=== PATIENT | female | born 1935 | race Caucasian/White ===

== ENCOUNTER 2020-03-11 12:52 | Outpatient (CLI) | payer OTHER, SELFPAY ==
--- NOTE | ~2020-03-11 | XR_ITS ---
MODIFIED ESOPHAGRAM HISTORY: Dysphagia. TECHNIQUE: Modified barium esophagram was performed on 03/11/2020. I administered fluoroscopy and perf ormed the exam with speech pathologist. Patient was seated for lateral fluoroscopic imaging for omayra stion of thin liquids, pudding, solids and quantified amounts, followed by thin liquids in uncontroll ed amounts. This was recorded on tape. A single fluoroscopic spot image was also recorded. The DAP fo r this procedure was 2.5 Gycm2. The amount of fluoroscopy time used during this procedure was 3.7 min utes. FINDINGS: Oral stage: Adequate function. Pharyngeal stage: Trace laryngeal penetration and aspiration with positive cough reflex. Prominent up per cricopharyngeus at the upper esophageal sphincter with a reflux into the piriform sinus with thin ner consistencies.. Cervical/esophageal stage: Adequate function. IMPRESSION: Trace laryngeal penetration and aspiration which elicited a cough reflex. Please correla te with speech pathologist findings and specific feeding recommendations. Reviewed, dictated and finalized at location A. IMPRESSION: Trace laryngeal penetration and aspiration which elicited a cough r eflex. Please correlate with speech pathologist findings and specific feeding recommendations.
--- NOTE | ~2020-03-11 | CT_ITS ---
EXAMINATION: CT chest wo con DATE: 03/11/2020 14:25 INDICATION: Cough, abnormal finding of the lung field TECHNIQUE: Computed tomography (CT) of the chest was performed without intravenous contrast. The dose -length product (DLP) was 149.90 mGy-cm. 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 COMPARISON: 08/23/2019, 09/03/2011 FINDINGS: There are multiple stable bilateral pulmonary nodules, consistent with old granulomatous di sease. No new or suspicious pulmonary nodule is identified. There is atelectasis of the lower lobes. There is no pleural effusion or pneumothorax. Cardiomegaly is noted. Mild mediastinal lymphadenopathy is unchanged and likely reactive. There appear to be changes of prior left hemithyroidectomy. Calcif ied coronary artery atherosclerosis is noted. A small amount of enteric contrast material is seen in the esophagus and stomach from modified barium swallow. There is severe thoracic spondylosis. There i s an unchanged compression fracture of the T6 vertebral body. IMPRESSION: 1. Stable scattered bilateral pulmonary nodules, consistent with old granulomatous disease. Reviewed, dictated and finalized at location A. IMPRESSION: 1. Stable scattered bilateral pulmonary nodules, consistent with old granulomat ous disease.
--- NOTE | 2020-03-12 08:40 | STOPEVAL ---
Outpatient Modified Barium Swallow: Thank you for referring Valentina Machado to [facility]. Attending Provider: Tashi Franco MD *[place] [facility] [place]: 03/12/20 08:22 Freq: Status: Active Protocol: Document 03/11/20 13:30 BECHERERT (Rec: 03/12/20 08:40 BECHERERT [email or web address]) Therapy Assessment Status Assessment Status Assessment Status Evaluation Evaluation Information Problem Diagnosis dysphagia;cough and aspiration of food Onset month or so Subjective Information poor memory Query Text:As Reported By Patient/ Family Pain Assessment Timing of Pain Assessment Timing of Pain Assessment Assessment Self Report Self Report Pain Level 0 Pain Score Pain Score 0: Self Report Modified Barium Swallow Evaluation Recent Swallowing History Reports Dysphagia Yes: tickle in throat; cough Onset of Dysphagia month or so History of Dysphagia No History of Pneumonia No Reported Difficult Consistencies Unable to Identify Intake Method Prior to Swallow Oral Evaluation Diet Prior to Swallow Evaluation Regular, Level 7 Liquid Consistency Prior to Swallow Thin (0) Evaluation Consistency Mildly Thick Method of Presentation Cup Oral Preparatory Symptoms Within Functional Limits Oral Phase Symptoms Within Functional Limits Pharyngeal Phase Symptoms Within Functional Limits Severity of Vallecular Residue Trace - 1-5 % Trace Coating of the Mucosa Severity of Pyriform Sinus Residue Trace - 1-5 % Trace Coating of the Mucosa 8 Point Laryngeal Penetration-Aspiration Material Does Not Enter Airway Scale Thin Uncontrolled 2 Other Amount with chin tuck Method of Presentation Straw Oral Preparatory Symptoms Within Functional Limits Oral Phase Symptoms Within Functional Limits Pharyngeal Phase Symptoms Within Functional Limits Severity of Vallecular Residue Trace - 1-5 % Trace Coating of the Mucosa Severity of Pyriform Sinus Residue Trace - 1-5 % Trace Coating of the Mucosa 8 Point Laryngeal Penetration-Aspiration Material Does Not Enter Airway Scale Pharyngeal Phase Comments Tight UES with trace backflow to pyriform sinus; no entry into laryngeal vestibule Thin Uncontrolled 1 Other Amount instructed to take 1 gulp Method of Presentation Cup Oral Preparatory Symptoms Within Functional Limits Oral Phase Symptoms Within Functional Limi
== END 2020-03-11 12:53 | disposition home or self-care (01) ==
PROVIDERS: PCP Family Medicine; Visit Provider Family Medicine
DX: R05 Cough (principal); T17.920A Food in respiratory tract, part unspecified causing asphyxiation, initial encounter; R91.8 Other nonspecific abnormal finding of lung field
CPT/HCPCS: 71250; 92611

== ENCOUNTER 2021-03-09 11:36 | Emergency (ER) | payer OTHER, SELFPAY ==
--- NOTE | ~2021-03-09 | CT_ITS ---
EXAMINATION: CT cervical spine wo con DATE: 03/09/2021 13:00 INDICATION: Head injury, neck pain TECHNIQUE: Computed tomography (CT) of the cervical spine was performed without intravenous contrast. The dose-length product (DLP) was 605.33 mGy-cm. Automated exposure control and iterative reconstruc tion technique were employed. COMPARISON: None FINDINGS: There is no fracture, dislocation, or subluxation. The vertebral body heights are maintaine d. There is moderate loss of intervertebral disc space height at C5-6. The odontoid is intact. The pr evertebral soft tissues are normal. There is mild multilevel facet and uncovertebral joint osteoarthr itis. Chronic right sphenoid sinusitis as noted. The left thyroid lobe is surgically absent. There ar e calcified and noncalcified nodule of the right thyroid lobe. IMPRESSION: 1. Mild cervical spondylosis without acute findings. Reviewed, dictated and finalized at location A.
--- NOTE | ~2021-03-09 | CT_ITS ---
EXAMINATION: CT brain wo con INDICATION: Head injury COMPARISON: None TECHNIQUE: Standard unenhanced head CT. The dose-length product (DLP) was 605.33 mGy-cm. The mA was a djusted according to patient size. Iterative reconstruction technique was employed. FINDINGS: There is a small right frontal scalp hematoma. There is no acute intraparenchymal hemorrhag e. No evidence of mass lesion. No evidence of acute infarction. There is mild periventricular and sub cortical hypodensity probably related to small vessel ischemic disease. There is mild prominence of t he sulci and ventricles related to cerebral atrophy. Intracranial calcified cerebral atherosclerosis is noted. There are no extra-axial collections. There is no mass effect or midline shift. A prostheti c left globe is noted. There is chronic complete opacification of right sphenoid sinus with sclerosis of the sinus doherty, consistent with chronic sinusitis. IMPRESSION: 1. Small right frontal scalp hematoma without acute intracranial abnormality. 2. Age related findings. Reviewed, dictated and finalized at location A.
--- NOTE | ~2021-03-09 | XR_ITS ---
EXAMINATION: XR knee RT 3V DATE: 03/09/2021 13:10 INDICATION: Right knee pain post fall TECHNIQUE: Anteroposterior, oblique and crosstable lateral views of the right knee were obtained COMPARISON: None. FINDINGS: Alignment is normal. No fracture. At least mild osteoarthritis in the ureter compartment of the righ t knee with small marginal osteophytes along the medial tibial plateau. Small right knee joint effusi on without layering lipohemarthrosis. Subtle vascular calcification along the femoral and proximal po pliteal arteries. Soft tissues are otherwise unremarkable. IMPRESSION: 1. Small right knee joint effusion. No acute osseous abnormality. Reviewed, dictated and finalized at location A.
--- NOTE | ~2021-03-09 | XR_ITS ---
EXAMINATION: XR elbow RT min 3V DATE: 03/09/2021 13:10 INDICATION: Right elbow pain post fall TECHNIQUE: Anteroposterior, two oblique and lateral views of the right elbow were obtained. COMPARISON: None. FINDINGS: Alignment is normal. No fracture or joint effusion. Mild osteoarthritis at the right elbow with nonun iform joint space narrowing at the radiocapitellar articulation.. Soft tissues are unremarkable. IMPRESSION: 1. Mild osteoarthritis at the right elbow. No joint effusion or acute osseous abnormality. Reviewed, dictated and finalized at location A. IMPRESSION: 1. Mild osteoarthritis at the right elbow. No joint effusion or acute osseous a bnormality.
[2021-03-09 11:37] VITALS: BP 127/77; PULSE 88; RESP 18; TEMP 37; O2SAT 100
[2021-03-09 12:31] VITALS: BP 133/77; PULSE 84; RESP 14; O2SAT 97
--- NOTE | 2021-03-09 12:45 | ECG_ITS ---
Measurements Intervals [place] Rate: 84 P: CT: 0 QRS: -27 QRSD: 91 T: -5 QT: 407 QTc: 484 Interpretive Statements ATRIAL FIBRILLATION BASELINE ARTIFACT- I, II, III, AVR, AVF, V1-V6 ABNORMAL ECG Electronically Signed On 03-09-2021 15:29:44 CDT by Eduardo Oviedo D.O.
--- NOTE | 2021-03-09 12:54 | ED.GENADULT ---
HPI - General Adult General Chief complaint: Fall Stated complaint: Fall Time Seen by Provider: 03/09/21 12:18 Source: patient History of Present Illness HPI narrative: Patient is a 85 y/o female complaining of fall down after she walked outside. She did hit her head and she has a slight headache. She denies any headache. She describes her headache as uncomfortable but it's very mild. There is no alleviating or exacerbating factor. She has no neck pain, back pain, chest pain or abdominal pain. She also has some scratches to right elbow and right knee. Of note, she is on Eliquis for A fib. Related Data Home Medications Medication Instructions Recorded Confirmed aspirin 81 mg tablet,delayed 81 mg PO DAILY 08/20/19 09/02/20 release latanoprost 0.005 % eye drops 1 drop EACH EYE QPM 08/20/19 09/02/20 memantine 10 mg tablet 10 mg PO BID 08/20/19 09/02/20 multivitamin 1 tablet PO DAILY 08/20/19 09/02/20 polyethylene glycol 3350 17 gram 17 gm PO DAILY 08/20/19 09/02/20 oral powder packet timolol maleate 0.25 % eye drops 1 drop EACH EYE Q12H 08/20/19 09/02/20 Allergies Allergy/AdvReac Type Severity Reaction Status Date / Time No Known Allergies Allergy Verified 09/02/20 15:34 Review of Systems Constitutional: Constitutional: Denies chills, Denies fever(s), Reports headache(s) and Denies weakness Eyes: Eyes: Denies blurry vision ENT: Reports headache(s) and Denies neck pain Cardiovascular: Cardiovascular: Denies chest pain and Denies dyspnea Respiratory: Respiratory: Denies cough and Denies dyspnea Gastrointestinal: Gastrointestinal: Denies abdominal pain, Denies diarrhea, Denies nausea and Denies vomiting Genitourinary: Genitourinary: Denies hematuria and Denies dysuria Musculoskeletal: Musculoskeletal: Denies back pain and Denies neck pain Neurologic: Reports headache(s) and Denies weakness [facility] Family History Family History Father Family history of malignant neoplasm Mother Family history of coronary artery disease Social History Social History Smoking status: Never smoker Second hand tobacco smoke exposure: No Alcohol intake: never Substance use: never Substance use type: does not use Gender identity (if verbalized by the patient): Female Exam Const: General: no acute distress and well developed Orientation/consciousness: oriented to person and oriented to place HENMT: Head: normocephalic and contusion left frontal Ears: external ears normal General nose exam: Normal external nose present Eyes: General: appearance normal, both eyes and all related structures Conjunctivae: conjunctivae normal Neck: Neck: normal visual inspection and full ROM Chest: Chest palpation & inspection: normal inspection of the chest and no tenderness Resp: Effort & Inspection: normal respiratory effort Auscultation: clear to auscultation bilaterally Cardio: Rate: regular rate Rhythm: abnormal rhythm irregularly irregular GI: GI Palp: No abdominal tenderness and Yes Soft to palpation Skin: General skin exam: normal color and turgor normal Neuro: General: oriented to person and oriented to place Cognition (Neuro): normal cognition Extrem: General: normal to inspection and full ROM Right upper extremity: elbow/forearm abrasion Right lower extremity: knee Details: tenderness, swelling and abrasion Psych: Appearance: grossly normal Mental Status: mental status grossly normal Affect: normal affect Course Vital Signs Vital signs: Vital Signs Temperature 37.0 C 03/09/21 11:37 Pulse Rate 88 03/09/21 11:37 Respiratory Rate 18 03/09/21 11:37 Blood Pressure 127/77 03/09/21 11:37 Pulse Oximetry 100 03/09/21 11:37 Temperature 37.0 C 03/09/21 11:37 Pulse Rate 88 03/09/21 11:37 Respiratory Rate 18 03/09/21 11:37 Blood Pressure 127/77 03/09/21 11:37 Pulse Oximet
[2021-03-09 13:16] VITALS: BP 144/84; PULSE 95; RESP 17; O2SAT 99
[2021-03-09 13:35] LABS: Basophils Percent Auto 0.4 % (0.2-1.2); Eosinophils Percent Auto 0.4 % (0-4.4); Hematocrit 47.8 % (37.0-47.0); Hemoglobin 15.3 g/dL (12.0-15.0); Immature Granulocyte Absolute 0.04 K/mm3 (0.00-0.031); Immature Granulocyte Percent A 0.5 % (0-0.5); Lymphocytes Absolute Auto 1.11 K/mm3 (0.9-3.2); Mean Corpuscular Hemoglobin 27.8 pg (26-34); Mean Corpuscular Volume 86.9 fl (80-100); Mean Platelet Volume 10.4 fl (7.4-10.4); Monocytes Absolute Auto 0.4 K/mm3 (0.1-0.6); Monocytes Percent Auto 5.8 % (2.6-8.5); Neutrophils Absolute Auto 5.8 K/mm3 (1.3-6.7); Neutrophils Percent Auto 77.9 % (45.5-73.1); Platelet Count Result 187 k/mm3 (150-375); White Blood Count 7.4 K/mm3 (4.5-10.0)
[2021-03-09 13:46] LABS: INR 1.2; Partial Thromboplastin Time 26.9 SECONDS (22.3-36.8); Prothrombin Time 16.2 Seconds (11.1-14.7)
[2021-03-09 13:47] LABS: Anion Gap 12 mmol/L (8-16); Blood Urea Nitrogen 22 mg/dL (7-17); Calcium 9.6 mg/dL (8.4-10.2); Carbon Dioxide 24 mmol/L (22-30); Chloride 104 mmol/L (98-107); Estimated CRCL calculation 47 ml/min; Estimated Glomerular Filt Rate > 60; Glucose 85 mg/dL (65-105); Potassium 4.3 mmol/L (3.4-5.0); Sodium 140 mmol/L (137-145)
[2021-03-09] MEDS: TETANUS,DIPHTHERIA,AC PERTUSSIS ADULT (0.5 ML) BOOSTRIX IM (15:41)
[2021-03-09 15:56] VITALS: BP 143/96; PULSE 86; RESP 16; O2SAT 97
== END 2021-03-09 16:03 | disposition home or self-care (01) ==
PROVIDERS: Emergency Provider Emergency Medicine; PCP Family Medicine
DX: S00.83XA Contusion of other part of head, initial encounter (principal); S80.211A Abrasion, right knee, initial encounter; M25.461 Effusion, right knee; Z23 Encounter for immunization; I48.91 Unspecified atrial fibrillation; Z79.82 Long term (current) use of aspirin; Z79.01 Long term (current) use of anticoagulants; W19.XXXA Unspecified fall, initial encounter
CPT/HCPCS: 36415; 70450; 72125; 73080; 73562; 80048; 85025; 85610; 85730; 90471; 90715; 93005; 99284

== ENCOUNTER 2021-04-17 08:31 | Outpatient (CLI) | payer OTHER, SELFPAY ==
--- NOTE | ~2021-04-17 | XR_ITS ---
XR chest 2V 04/17/2021 09:09 Indication: Shortness of breath Procedure: 2 view chest Comparison: 08/16/2019 Findings: Heart size is normal. No acute focal pneumonia, edema or effusion. No pneumothorax. Healed right rib fractures. Impression: 1: No acute cardiopulmonary disease. Reviewed, dictated and finalized at location A. Impression: 1: No acute cardiopulmonary disease.
--- NOTE | ~2021-04-17 | CT_ITS ---
EXAMINATION: CT brain wo con DATE: 04/17/2021 09:15 INDICATION: Dementia with behavioral disturbance and memory loss TECHNIQUE: Computed tomography (CT) of the head was performed without intravenous contrast. Sagittal and coronal reconstructions were performed. The mA was adjusted according to patient size. Iterative reconstruction technique was employed. The dose-length product was 605.33 mGy-cm. COMPARISON: head CT dated 03/09/2021 FINDINGS: No acute intracranial hemorrhage, acute infarction or abnormal extra axial fluid collection. There is mild scattered white matter hypoattenuation consistent with chronic small vessel ischemic disease. S ymmetric prominence of the sulci and ventricles consistent with moderate age-appropriate diffuse cere bral volume loss. No mass/mass effect. Changes of bilateral intraocular lens replacement. Attenuation likely central canal within the left globe. Chronic opacification of the right sphenoid sinus with c entral calcification and thickened sclerotic doherty, likely sequela of chronic fungal sinusitis. Remai nder of the paranasal sinuses as well as the middle ear cavities and mastoid air cells are clear. IMPRESSION: 1. No acute intracranial process. 2. Age-related changes including moderate diffuse volume loss and mild scattered white matter hypoatt enuation consistent with chronic small vessel ischemic disease. 3. Chronic right sphenoid sinusitis. Reviewed, dictated and finalized at location A. IMPRESSION: 1. No acute intracranial process. 2. Age-related changes including moderate diffuse volume loss and mild scattere d white matter hypoattenuation consistent with chronic small vessel ischemic di sease. 3. Chronic right sphenoid sinusitis.
--- NOTE | ~2021-04-17 | XR_ITS ---
XR_[id number]_CR 04/17/2021 09:08 Indication: Cervicalgia. Neck pain. Procedure: 3 view cervical spine Comparison: No prior studies for comparison. Findings: Accentuated cervical lordosis. Vertebral body heights are maintained. Mild disc narrowing a t C5-6. No prevertebral soft tissue abnormality. Moderate multilevel facet hypertrophy. Odontoid proc ess is unremarkable. Impression: 1: Mild cervical spondylosis. Reviewed, dictated and finalized at location A. Impression: 1: Mild cervical spondylosis.
== END 2021-04-17 08:32 | disposition home or self-care (01) ==
PROVIDERS: PCP Family Medicine; Visit Provider Physician Assistant
DX: F03.90 Unspecified dementia, unspecified severity, without behavioral disturbance, psychotic disturbance, mood disturbance, and anxiety (principal); I10 Essential (primary) hypertension; I48.91 Unspecified atrial fibrillation; M54.2 Cervicalgia; R91.8 Other nonspecific abnormal finding of lung field; M47.892 Other spondylosis, cervical region
CPT/HCPCS: 36415; 70450; 71046; 72040; 84443

== ENCOUNTER 2021-08-11 11:29 | Outpatient (CLI) | payer OTHER, SELFPAY ==
--- NOTE | ~2021-08-11 | XR_ITS ---
EXAMINATION: XR chest 2V DATE: 08/11/2021 12:01 INDICATION: Wheezing. TECHNIQUE: Frontal and lateral views of the chest were obtained. COMPARISON: Chest 2 views 04/17/2021, chest CT 03/11/2020 FINDINGS: There is mild scarring at the lung apices. No pleural effusion or pneumothorax. The heart s ize is normal. There are old healed right rib fractures. There is kyphosis of thoracic spine with chr onic height loss of midthoracic vertebral bodies. IMPRESSION: 1. Stable mild scarring at the lung apices. Reviewed, dictated and finalized at location B. P [employer] [facility]
== END 2021-08-11 11:30 | disposition home or self-care (01) ==
LOC: ANHIMG 11:33
PROVIDERS: PCP Family Medicine; Visit Provider Physician Assistant
DX: R06.2 Wheezing (principal); R91.8 Other nonspecific abnormal finding of lung field
CPT/HCPCS: 71046

== ENCOUNTER 2022-05-14 13:58 | Outpatient (CLI) | payer OTHER, SELFPAY ==
--- NOTE | ~2022-05-14 | XR_ITS ---
EXAMINATION: XR hip BI 2V w AP pelvis DATE: 05/14/2022 14:38 INDICATION: Low back and pelvic pain TECHNIQUE: AP view the pelvis and two views of each hip were obtained. COMPARISON: None. FINDINGS: Bone alignment is normal. There is no fracture. There is mild osteoarthritis of the hips. A surgical anastomosis is noted in the left pelvis. There is severe lower lumbar spondylosis. Mild ost eitis pubis is noted. IMPRESSION: 1. 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 Reviewed, dictated and finalized at location B.
--- NOTE | ~2022-05-14 | XR_ITS ---
EXAMINATION: XR humerus RT DATE: 05/14/2022 14:38 INDICATION: Unspecified injury of shoulder and upper arm. TECHNIQUE: 2 views of right humerus on 3 radiographs were obtained. COMPARISON: None. FINDINGS: Bone alignment is normal. No fracture. There is mild osteoarthritis of glenohumeral joint a nd moderate osteoarthritis of acromioclavicular joint. There are multiple old healed right rib fractu res. IMPRESSION: 1. Polyarticular osteoarthritis. Reviewed, dictated and finalized at location A.
[2022-05-14 15:06] LABS: Basophils Percent Auto 0.5 % (0.2-1.2); Eosinophils Absolute Auto 0.1 K/mm3 (0-0.3); Eosinophils Percent Auto 0.9 % (0-4.4); Hematocrit 43.1 % (37.0-47.0); Hemoglobin 13.8 g/dL (12.0-15.0); Immature Granulocyte Absolute 0.03 K/mm3 (0.00-0.031); Immature Granulocyte Percent A 0.5 % (0-0.5); Lymphocytes Absolute Auto 0.89 K/mm3 (0.9-3.2); Lymphocytes Percent Auto 13.8 % (18.3-44.2); Mean Corpuscular Hemoglobin 27.9 pg (26-34); Mean Corpuscular Volume 87.1 fl (80-100); Mean Platelet Volume 10.6 fl (7.4-10.4); Monocytes Absolute Auto 0.5 K/mm3 (0.1-0.6); Monocytes Percent Auto 7.3 % (2.6-8.5); Platelet Count Result 179 k/mm3 (150-375); Red Blood Count 4.95 M/mm3 (4.2-5.4); Red Cell Distribution Width 13.7 % (11.5-14.5); White Blood Count 6.4 K/mm3 (4.5-10.0)
[2022-05-14 15:08] LABS: Appearance Urine Clear (Clear); Bilirubin Urine Negative (Negative); Blood Urine Negative (Negative); Color Urine Yellow (Yellow); Glucose Urine UA Negative (Negative); Ketones Urine Negative (Negative); Leukocyte Esterase Ur Negative LEU/UL (NEGATIVE); Nitrate Urine Negative (Negative); Protein Urine Negative (Negative); Specific Grav Ur <= 1.005 (1.001-1.035); Urobilinogen Urine 0.2 mg/dL (<2.0); pH Urine 6.5 (5.0-9.0)
[2022-05-14 15:22] LABS: Alanine Aminotransferase 17 U/L (6-35); Albumin Level 4.4 g/dL (3.5-5.1); Alkaline Phosphatase 98 U/L (38-126); Anion Gap 11 mmol/L (8-16); Aspartate Amino Transferase 25 U/L (14-36); Bilirubin,Total 0.6 mg/dL (0.2-1.3); Blood Urea Nitrogen 15 mg/dL (7-17); Calcium 8.9 mg/dL (8.4-10.2); Carbon Dioxide 26 mmol/L (22-30); Chloride 102 mmol/L (98-107); Estimated Glomerular Filt Rate > 60; Glucose 132 mg/dL (65-110); Potassium 3.7 mmol/L (3.4-5.0); Sodium 139 mmol/L (137-145)
[2022-05-14 15:22] LABS: Add Urine Microscopic? NO
== END 2022-05-14 13:59 | disposition home or self-care (01) ==
PROVIDERS: PCP Family Medicine; Visit Provider Physician Assistant
DX: S39.92XA Unspecified injury of lower back, initial encounter (principal); X58.XXXA Exposure to other specified factors, initial encounter; S49.90XA Unspecified injury of shoulder and upper arm, unspecified arm, initial encounter; D75.1 Secondary polycythemia; I48.91 Unspecified atrial fibrillation; E55.9 Vitamin D deficiency, unspecified; I10 Essential (primary) hypertension; F03.90 Unspecified dementia, unspecified severity, without behavioral disturbance, psychotic disturbance, mood disturbance, and anxiety; F32.9 Major depressive disorder, single episode, unspecified; N39.0 Urinary tract infection, site not specified
CPT/HCPCS: 36415; 73060; 73521; 80053; 81003; 84443; 85025; 87086

== ENCOUNTER 2023-02-10 14:53 | Emergency (ER) | payer OTHER, SELFPAY ==
[2023-02-10] VITALS (7 sets, daily range): BP systolic 133–154; BP diastolic 74–89; PULSE 81–95; RESP 16–21; TEMP 36.6; O2SAT 98–100
--- NOTE | ~2023-02-10 | CT_ITS ---
EXAMINATION: CT brain wo con DATE: 02/10/2023 16:14 INDICATION: Unresponsive episode. Dementia. TECHNIQUE: Computed tomography (CT) of the head was performed without intravenous contrast. The mA wa s adjusted according to patient size. Iterative reconstruction technique was employed. The dose-lengt h product was 605.33 mGy-cm. COMPARISON: Head CT 04/17/2021 FINDINGS: There are scattered areas of low attenuation in the cerebral white matter, which is within normal limits for the patient's age. There is a small old infarct in right cerebellum. There is no in tracranial hemorrhage, acute infarction, or abnormal intracranial mass lesion. The ventricles are nor mal in size. There is complete opacification of right sphenoid sinus with sclerosis of the sinus wall s, consistent with chronic sinusitis. The mastoid air cells are normal. There are likely changes of o cular lens replacement surgeries. There is hyperdense material in left ocular globe from prior interv ention. IMPRESSION: 1. Small old infarct in right cerebellum. 2. Chronic sphenoid sinusitis. Reviewed, dictated and finalized at location E.
--- NOTE | ~2023-02-10 | XR_ITS ---
EXAMINATION: XR pelvis 1-2V DATE: 02/10/2023 16:22 INDICATION: Pelvis injury. TECHNIQUE: An anteroposterior view of the pelvis was obtained. COMPARISON: Pelvis radiograph 05/14/2022, CT abdomen and pelvis 12/25/2010 FINDINGS: There is lumbar dextroscoliosis scoliosis and severe spondylosis. No fracture. There is mil d osteoarthritis of the hips. Osteitis pubis is noted. Surgical clips overlie left abdomen. A calcifi ed uterine fibroid is noted. IMPRESSION: 1. Mild osteoarthritis of the hips. Reviewed, dictated and finalized at location E.
--- NOTE | 2023-02-10 14:57 | ECG_ITS ---
Measurements Intervals [place] Rate: 85 P: [place]: 0 QRS: -39 QRSD: 92 T: -4 QT: 388 QTc: 463 Interpretive Statements ATRIAL FIBRILLATION LEFT AXIS DEVIATION INCOMPLETE RIGHT BUNDLE BRANCH BLOCK DELAYED PRECORDIAL R/S TRANSITION BORDERLINE T WAVE ABNORMALITY- INFERIOR LEADS ABNORMAL ECG COMPARED TO ECG 03/09/2021 14:26:13 LEFT-AXIS DEVIATION NOW PRESENT INCOMPLETE RIGHT BUNDLE-BRANCH BLOCK NOW PRESENT Electronically Signed On 02-10-2023 15:36:38 CDT by Eduardo Oviedo D.O.
[2023-02-10 15:20] LABS: Hematocrit 41.7 % (37.0-47.0); Hemoglobin 13.5 g/dL (12.0-15.0); Mean Corpuscular HGB Conc 32.4 g/dl (32-36); Mean Corpuscular Hemoglobin 28.8 pg (26-34); Mean Corpuscular Volume 89.1 fl (80-100); Platelet Count Result 152 k/mm3 (150-375); Red Blood Count 4.68 M/mm3 (4.2-5.4); Red Cell Distribution Width 13.3 % (11.5-14.5); White Blood Count 5.5 K/mm3 (4.5-10.0)
[2023-02-10 15:21] LABS: Basophils Percent Auto 0.5 % (0.2-1.2); Eosinophils Percent Auto 0.7 % (0-4.4); Immature Granulocyte Absolute 0.02 K/mm3 (0.00-0.031); Immature Granulocyte Percent A 0.4 % (0-0.5); Lymphocytes Absolute Auto 1.02 K/mm3 (0.9-3.2); Lymphocytes Percent Auto 18.4 % (18.3-44.2); Mean Platelet Volume 10.5 fl (7.4-10.4); Monocytes Absolute Auto 0.3 K/mm3 (0.1-0.6); Monocytes Percent Auto 5.8 % (2.6-8.5); Neutrophils Absolute Auto 4.1 K/mm3 (1.3-6.7); Neutrophils Percent Auto 74.2 % (45.5-73.1)
[2023-02-10 15:30] LABS: Alanine Aminotransferase 27 U/L (6-35); Albumin Level 4.1 g/dL (3.5-5.1); Alkaline Phosphatase 85 U/L (38-126); Anion Gap 5 mmol/L (8-16); Aspartate Amino Transferase 38 U/L (14-36); Bilirubin,Total 0.7 mg/dL (0.2-1.3); Blood Urea Nitrogen 21 mg/dL (7-17); Calcium 8.5 mg/dL (8.4-10.2); Carbon Dioxide 30 mmol/L (22-30); Chloride 104 mmol/L (98-107); Estimated CRCL calculation 40 ml/min; Estimated Glomerular Filt Rate > 60; Glucose 88 mg/dL (65-110); Potassium 3.8 mmol/L (3.4-5.0); Sodium 139 mmol/L (137-145)
--- NOTE | 2023-02-10 16:37 | ED.SYNCOPE ---
HPI - Syncope General Chief Complaint: Syncope Stated Complaint: syncopy Time Seen by Provider: 02/10/23 15:52 Source: family, EMS and RN notes reviewed Mode of arrival: EMS Limitations: dementia History of Present Illness MD complaint: other (o sure) -: second(s) (few sec) Prodromal symptoms: none Injuries sustained associated with event: none Current symptoms: none Treatments prior to arrival: none Related Data Home Medications Medication Instructions Recorded Confirmed aspirin 81 mg tablet,delayed 81 mg PO DAILY 08/20/19 05/14/22 release latanoprost 0.005 % eye drops 1 drop ophthalmic (eye) QPM 08/20/19 05/14/22 memantine 10 mg tablet (Namenda) 10 mg PO BID 08/20/19 05/14/22 polyethylene glycol 3350 17 gram 17 gm PO DAILY 08/20/19 05/14/22 oral powder packet (Miralax) timolol maleate 0.25 % eye drops 1 drop ophthalmic (eye) Q12H 08/20/19 05/14/22 Allergies Allergy/AdvReac Type Severity Reaction Status Date / Time No Known Allergies Allergy Verified 05/14/22 13:04 Review of Systems Review of Systems: ROS unobtainable: Yes unobtainable due to mental status (Dementia) PMFSH Family History Family History Father Family history of malignant neoplasm Mother Family history of coronary artery disease Social History Social History Smoking status: Never smoker Second hand tobacco smoke exposure: No Alcohol intake: never Substance use: never Substance use type: does not use Living arrangements: with family Occupation/Education: retired Gender identity (if verbalized by the patient): Female Exam Narrative: GENERAL: Well-appearing, well-nourished, and in no acute distress. HEAD: Normocephalic, atraumatic. EYES: PERRLA and EOMI. NECK: Supple. CHEST: Clear to auscultation. No respiratory distress. HEART: Regular rate and rhythm. No murmur heard. Normal peripheral pulses. ABDOMEN: Soft, nontender, nondistended, normal active bowel sounds. EXTREMITIES: Normal range of motion. No edema. SKIN: Warm, dry, no rash. NEURO: No focal deficits. Alert and oriented x1. PSYCH: Normal mood and affect. Course Course Emergency Course: Patient comfortably resting on the bed in no discomfort talking to her son who is at bedside. Informed patient and her son about her lab work, EKG and CT findings. Recommended to continue home medications, follow-up with the primary doctor. They do feel comfortable going back to the residential. Vital Signs Vital signs: Vital Signs Temperature 36.6 C 02/10/23 14:58 Pulse Rate 85 02/10/23 14:58 Respiratory Rate 18 02/10/23 14:58 Blood Pressure 144/81 H 02/10/23 14:58 Pulse Oximetry 100 02/10/23 14:58 Oxygen Delivery Room Air 02/10/23 14:58 Temperature 36.6 C 02/10/23 14:58 Pulse Rate 84 02/10/23 15:45 Respiratory Rate 17 02/10/23 15:45 Blood Pressure 133/89 02/10/23 15:31 Pulse Oximetry 100 02/10/23 15:45 Oxygen Delivery Room Air 02/10/23 14:58 MDM - Syncope MDM Narrative Medical decision making narrative: 87-year-old with a history of dementia was brought in with possible syncopal episode/fall. Upon arrival to the ER she is alert awake she denies having any pain. Her EKG shows AF which is chronic. We will do check her labs and CT of the head Differential Diagnosis Differential diagnosis: Likely vasovagal syncope, complete atrioventricular block and dehydration Medical Records Attestation: I reviewed the patient's medical records. Lab Data Attestation: I reviewed the patient's lab results. 02/10/23 15:06 02/10/23 15:06 Labs: Lab Results 02/10/23 Range/Units 15:06 WBC 5.5 (4.5-10.0) K/mm3 RBC 4.68 (4.2-5.4) M/mm3 Hgb 13.5 (12.0-15.0) g/dL Hct 41.7 (37.0-47.0) % MCV 89.1 (80-100) fl MCH 28.8 (26-34) pg MCHC 32.4 (32-36) g/dl RDW 13.3 (11
== END 2023-02-10 16:56 ==
PROVIDERS: Emergency Medicine; Emergency Provider Family Medicine; PCP Family Medicine
DX: R55 Syncope and collapse (principal); F03.90 Unspecified dementia, unspecified severity, without behavioral disturbance, psychotic disturbance, mood disturbance, and anxiety; I48.20 Chronic atrial fibrillation, unspecified; Z79.82 Long term (current) use of aspirin
CPT/HCPCS: 36415; 70450; 72170; 80053; 85025; 93005; 99284

== ENCOUNTER 2023-06-28 05:47 | Emergency (ER) | payer OTHER, SELFPAY ==
--- NOTE | ~2023-06-28 | CT_ITS ---
EXAMINATION: CT brain wo con DATE: 06/28/2023 06:22 INDICATION: Head injury. TECHNIQUE: Computed tomography (CT) of the head was performed without intravenous contrast. The mA wa s adjusted according to patient size. Iterative reconstruction technique was employed. The dose-lengt h product was 756.67 mGy-cm. COMPARISON: Head CT 02/10/2023 FINDINGS: There is a small old infarct in right cerebellum. There are scattered areas of low attenuat ion in the cerebral white matter, which is within normal limits for the patient's age. There is no in tracranial hemorrhage, acute infarction, or abnormal intracranial mass lesion. The ventricles are nor mal in size. There are likely changes of ocular lens replacement surgeries. There is injected hyperde nse material in left ocular globe. There is anteroposterior elongation of right ocular globe. There i s near complete opacification of right sphenoid sinus with thickening and sclerosis of the sinus wall s, consistent with chronic sinusitis. There is a mucous retention cyst in right maxillary sinus. The mastoid air cells are normal. IMPRESSION: 1. Small old infarct in right cerebellum. 2. Chronic sphenoid sinusitis. Reviewed, dictated and finalized at location A.
--- NOTE | ~2023-06-28 | CT_ITS ---
EXAMINATION: CT cervical spine wo con DATE: 06/28/2023 06:22 INDICATION: Head injury. TECHNIQUE: Computed tomography (CT) of the cervical spine was performed without intravenous contrast. Automated exposure control and iterative reconstruction technique were employed. The dose-length pro duct was 127.62 mGy-cm. COMPARISON: CT cervical spine 03/09/2021 FINDINGS: C1 ring is ununited posteriorly, a normal variant. There is 2 mm retrolisthesis of C5 on C6 . Vertebral body heights are normal in cervical spine. There is mildly decreased disc height at C4-C5 and severely decreased disc height at C5-C6. The following disc levels are specifically discussed: C2-C3: There is no uncovertebral joint osteoarthritis. There is severe left facet joint osteoarthriti s. There is mild left neural foraminal stenosis. There is no central canal stenosis. C3-C4: There is no uncovertebral joint osteoarthritis. There is mild right and severe left facet join t osteoarthritis. There is mild left neural foraminal stenosis. There is no central canal stenosis. C4-C5: There is mild bilateral uncovertebral joint osteoarthritis. There is severe right and moderate left facet joint osteoarthritis. There is no neural foraminal stenosis. There is no central canal st enosis. C5-C6: There is severe bilateral uncovertebral joint osteoarthritis. There is moderate bilateral face t joint osteoarthritis. There is mild bilateral neural foraminal stenosis. There is mild central yulissa l stenosis. C6-C7: There is no uncovertebral joint osteoarthritis. There is moderate right and mild left facet saira int osteoarthritis. There is no neural foraminal stenosis. There is no central canal stenosis. C7-T1: There is no uncovertebral joint osteoarthritis. There is severe bilateral facet joint osteoart hritis. There is mild right neural foraminal stenosis. There is no central canal stenosis. IMPRESSION: 1. No fracture. 2. Severe cervical spondylosis. Reviewed, dictated and finalized at location A.
--- NOTE | ~2023-06-28 | CT_ITS ---
EXAMINATION: CT thoracic lumbar wo con DATE: 06/28/2023 06:24 INDICATION: Spine injury. Fall. TECHNIQUE: Computed tomography (CT) of the thoracic and lumbar spine was performed without intravenou s contrast. Automated exposure control and iterative reconstruction technique were employed. The dose -length product was 830.43 mGy-cm. COMPARISON: Chest CT 03/11/2020, chest 2 views 08/11/2021 FINDINGS: CT THORACIC SPINE: There is mild scarring at the lung apices. There is mild atelectasis bilaterally. There is a small right pleural effusion. Cardiomegaly is noted. There are coronary artery calcificati ons. There is mild mediastinal lymphadenopathy, likely reactive. There are old healed bilateral rib f ractures. There is kyphosis of thoracic spine. There is 8 degrees dextrocurvature of thoracic spine. There is a burst fracture of T4 with 3/5 loss of height and retropulsion of bone 3 mm into central sp inal canal. There is a chronic burst fracture of T6 with 3/5 loss of height. There is a distraction f racture of T9 vertebral body with 3 mm fracture gap anteriorly. There are bridging endplate osteophyt es from T7 to T11, consistent with diffuse idiopathic skeletal hyperostosis (DISH). There is mildly d ecreased disc height at T5-T6, T6-T7, and T7-T8. There is multilevel mild to moderate facet joint ost eoarthritis. On the right, there is mild neural foraminal stenosis at T4-T5. On the left, there is mi ld neural foraminal stenosis at T4-T5. There is mild central canal stenosis at T4-T5. CT LUMBAR SPINE: There is a 3.6 cm cyst in right kidney. There are fibroids in the uterus. There is 1 9 degrees dextroscoliosis of lumbar spine. Vertebral body heights are normal. There is a benign bone island in L4 vertebral body. There is severely decreased disc height at L2-L3, mildly decreased disc height at L3-L4, and severely decreased disc height at L4-L5 and L5-S1. The following disc levels are specifically discussed: L1-L2: The disc is bulging. There is mild bilateral facet joint osteoarthritis. There is mild right n eural foraminal stenosis. There is no central canal stenosis. L2-L3: The disc is bulging. There is mild bilateral facet joint osteoarthritis. There is mild bilater al neural foraminal stenosis. There is mild central canal stenosis. L3-L4: The disc is bulging. There is moderate right and mild left facet joint osteoarthritis. There i s mild bilateral neural foraminal stenosis. There is mild central canal stenosis. L4-L5: The disc is bulging. There is severe bilateral facet joint osteoarthritis. There is moderate r ight and mild left neural foraminal stenosis. There is mild central canal stenosis. L5-S1: The disc is bulging. There is severe bilateral facet joint osteoarthritis. There is mild bilat eral neural foraminal stenosis. There is mild central canal stenosis. IMPRESSION: 1.Acute distraction fracture of T9 vertebral body. DISH. 2. Age-indeterminate T4 burst fracture, new from 08/11/2021. 3. Mild thoracic spondylosis and severe lumbar spondylosis. Reviewed, dictated and finalized at location A.
[2023-06-28 05:46] VITALS: BP 127/99; PULSE 74; RESP 20; TEMP 36.6; O2SAT 99
--- NOTE | 2023-06-28 05:52 | ECG_ITS ---
Measurements Intervals [place] Rate: 85 P: ID: 0 QRS: -31 QRSD: 96 T: -11 QT: 394 QTc: 470 Interpretive Statements ATRIAL FIBRILLATION MARKED LEFT AXIS DEVIATION [QRS AXIS < -30] INCOMPLETE RIGHT BUNDLE BRANCH BLOCK [90+ ms QRS DURATION, TERMINAL R IN V1/V2, 40+ ms S IN I/aVL/V4/V5/V6] COMPARED TO ECG 02/10/2023 14:59:52 NO SIGNIFICANT CHANGES Electronically Signed On 06-28-2023 16:17:34 CDT by Alba Read M.D.
[2023-06-28 05:53] VITALS: BP 127/99; PULSE 98; RESP 30
--- NOTE | 2023-06-28 05:54 | ED.FALL ---
HPI - Fall General Chief Complaint: Fall Stated Complaint: glf Time Seen by Provider: 06/28/23 05:52 History of Present Illness HPI Narrative: Patient brought into the emergency department by EMS from nursing facility. Patient fell but cannot verbalize her complaints. EMS cannot state what the patient's baseline is. Related Data Home Medications Medication Instructions Recorded Confirmed aspirin 81 mg tablet,delayed 81 mg PO DAILY 08/20/19 05/14/22 release latanoprost 0.005 % eye drops 1 drop ophthalmic (eye) QPM 08/20/19 05/14/22 memantine 10 mg tablet (Namenda) 10 mg PO BID 08/20/19 05/14/22 polyethylene glycol 3350 17 gram 17 gm PO DAILY 08/20/19 05/14/22 oral powder packet (Miralax) timolol maleate 0.25 % eye drops 1 drop ophthalmic (eye) Q12H 08/20/19 05/14/22 Allergies Allergy/AdvReac Type Severity Reaction Status Date / Time No Known Allergies Allergy Verified 05/14/22 13:04 [facility] Family History Family History Father Family history of malignant neoplasm Mother Family history of coronary artery disease Social History Social History Smoking status: Never smoker Second hand tobacco smoke exposure: No Alcohol intake: never Substance use: never Substance use type: does not use Living arrangements: with family Occupation/Education: retired Gender identity (if verbalized by the patient): Female Course Vital Signs Vital signs: Vital Signs Temperature 36.6 C 06/28/23 05:46 Pulse Rate 74 06/28/23 05:46 Respiratory Rate 20 06/28/23 05:46 Blood Pressure 127/99 H 06/28/23 05:46 Pulse Oximetry 99 06/28/23 05:46 Oxygen Delivery Room Air 06/28/23 05:46 Temperature 36.6 C 06/28/23 05:46 Pulse Rate 77 06/28/23 06:45 Respiratory Rate 24 H 06/28/23 06:45 Blood Pressure 127/99 H 06/28/23 05:53 Pulse Oximetry 99 06/28/23 05:46 Oxygen Delivery Room Air 06/28/23 05:46 MDM - Fall Lab Data 06/28/23 06:36 06/28/23 06:36 Labs: Lab Results 06/28/23 06/28/23 06/28/23 Range/Units 06:36 06:36 06:44 WBC 8.9 (4.5-10.0) K/mm3 RBC 4.94 (4.2-5.4) M/mm3 Hgb 14.3 (12.0-15.0) g/dL Hct 44.3 (37.0-47.0) % MCV 89.7 (80-100) fl MCH 28.9 (26-34) pg MCHC 32.3 (32-36) g/dl RDW 13.1 (11.5-14.5) % Plt Count 147 L (150-375) k/mm3 MPV 10.3 (7.4-10.4) fl Immature Gran % (Auto) 2.0 H (0-0.5) % Neut % (Auto) 81.7 H (45.5-73.1) % Lymph % (Auto) 11.6 L (18.3-44.2) % [place] % (Auto) 4.1 (2.6-8.5) % Eos % (Auto) 0.3 (0-4.4) % Baso % (Auto) 0.3 (0.2-1.2) % Lymph # (Auto) 1.04 (0.9-3.2) K/mm3 [place] # (Auto) 0.4 (0.1-0.6) K/mm3 Eos # (Auto) 0.0 (0-0.3) K/mm3 Baso # (Auto) 0.0 (0.0-0.1) K/mm3 Abs Immat Gran (auto) 0.18 H (0.00-0.031) K/mm3 Absolute Neuts (auto) 7.3 H (1.3-6.7) K/mm3 Absolute Nucleated RBC 0.0 (0.0-0.012) K/mm3 Nucleated RBC % 0.0 (0.0-0.2) % Sodium 138 (137-145) mmol/L Potassium 3.1 L (3.4-5.0) mmol/L Chloride 103 (98-107) mmol/L Carbon Dioxide 27 (22-30) mmol/L Anion Gap 8 (8-16) mmol/L BUN 16 (7-17) mg/dL Creatinine 0.70 (0.7-1.0) mg/dL Estim Creat Clear Calc 39 ml/min Estimated GFR > 60 (59 - ) Glucose 124 H (65-110) mg/dL Calcium 8.7 (8.4-10.2) mg/dL Total Bilirubin 1.0 (0.2-1.3) mg/dL AST 37 H (14-36) U/L ALT 23 (6-35) U/L Alkaline Phosphatase 100 (38-126) U/L Total Creatine Kinase 36 Cancelled (30-135) U/L Troponin I Pending Pending Total Protein 7.0 (6.3-8.2) g/dL Albumin 4.1 (3.5-5.1) g/dL Urine Opiates Screen Pending Urine Methadone Screen Pending Ur Barbiturates Screen Pending Ur Phencyclidine Scrn Pending Ur Amphetamine Screen Pending U Benzodiazepines Scrn Pending Ur
[2023-06-28 06:00] VITALS: PULSE 73; RESP 22
[2023-06-28 06:30] VITALS: PULSE 69; RESP 29
[2023-06-28 06:45] VITALS: PULSE 77; RESP 24
[2023-06-28 06:52] LABS: Basophils Percent Auto 0.3 % (0.2-1.2); Eosinophils Percent Auto 0.3 % (0-4.4); Hematocrit 44.3 % (37.0-47.0); Hemoglobin 14.3 g/dL (12.0-15.0); Immature Granulocyte Absolute 0.18 K/mm3 (0.00-0.031); Lymphocytes Absolute Auto 1.04 K/mm3 (0.9-3.2); Lymphocytes Percent Auto 11.6 % (18.3-44.2); Mean Corpuscular HGB Conc 32.3 g/dl (32-36); Mean Corpuscular Hemoglobin 28.9 pg (26-34); Mean Corpuscular Volume 89.7 fl (80-100); Mean Platelet Volume 10.3 fl (7.4-10.4); Monocytes Absolute Auto 0.4 K/mm3 (0.1-0.6); Monocytes Percent Auto 4.1 % (2.6-8.5); Neutrophils Absolute Auto 7.3 K/mm3 (1.3-6.7); Neutrophils Percent Auto 81.7 % (45.5-73.1); Platelet Count Result 147 k/mm3 (150-375); Red Blood Count 4.94 M/mm3 (4.2-5.4); Red Cell Distribution Width 13.1 % (11.5-14.5); White Blood Count 8.9 K/mm3 (4.5-10.0)
[2023-06-28 07:04] LABS: Ethanol < 10 mg/dL (<10)
[2023-06-28 07:05] LABS: Alanine Aminotransferase 23 U/L (6-35); Albumin Level 4.1 g/dL (3.5-5.1); Alkaline Phosphatase 100 U/L (38-126); Anion Gap 8 mmol/L (8-16); Aspartate Amino Transferase 37 U/L (14-36); Blood Urea Nitrogen 16 mg/dL (7-17); Calcium 8.7 mg/dL (8.4-10.2); Carbon Dioxide 27 mmol/L (22-30); Chloride 103 mmol/L (98-107); Creatine Kinase 36 U/L (30-135); Estimated CRCL calculation 39 ml/min; Estimated Glomerular Filt Rate > 60; Glucose 124 mg/dL (65-110); Potassium 3.1 mmol/L (3.4-5.0); Sodium 138 mmol/L (137-145)
[2023-06-28 07:14] LABS: Amphetamine Screen Urine Negative (Negative); Barbiturate Screen Urine Negative (Negative); Benzodiazepines Screen Urine Negative (Negative); Cannabinoid Screen Urine Negative (Negative); Cocaine Screen Urine Negative (Negative); Methadone Screen Urine Negative (Negative); Opiate Screen Urine Negative (Negative); Phencyclidine Screen Urine Negative (Negative)
[2023-06-28 07:16] LABS: Troponin I < 0.012 ng/mL (0.000-0.034)
--- NOTE | 2023-06-28 07:46 | PC.NURSE ---
Pt refusing to keep on BP cuff, cardiac leads, and pulse ox, pt educated on importance of monitoring vital signs. Pt refusing to stay dressed and covered. Pt attempting to get out of bed, bed alarm applied and pt educated on importance of staying in bed for safety.
--- NOTE | 2023-06-28 07:50 | PC.NURSE ---
C-collar removed by ILAN Mcclain after reviewing results from pts CT scans.
[2023-06-28 07:52] LABS: Appearance Urine Clear (Clear); Bacteria Urine None Seen /hpf; Bilirubin Urine Negative (Negative); Blood Urine Trace-intact (Negative); Color Urine Yellow (Yellow); Glucose Urine UA Negative (Negative); Ketones Urine Negative (Negative); Leukocyte Esterase Ur Negative LEU/UL (Negative); Nitrate Urine Negative (Negative); Non Pathogenic Casts 0-2; Protein Urine Negative (Negative); RBC Urine 0-2 /hpf (0-2); Specific Grav Ur 1.015 (1.001-1.035); Squamous Epithelial Cell Urine None seen /hpf (Few); WBC Urine 0-5 /hpf
[2023-06-28 07:59] LABS: Add Urine Microscopic? YES
[2023-06-28] MEDS: ACETAMINOPHEN 325 MG TABLET 650 MG PO (08:11)
== END 2023-06-28 09:10 ==
PROVIDERS: Emergency Provider Emergency Medicine; PCP Family Medicine
DX: S22.078A Other fracture of T9-T10 vertebra, initial encounter for closed fracture (principal); S22.071A Stable burst fracture of T9-T10 vertebra, initial encounter for closed fracture; F03.90 Unspecified dementia, unspecified severity, without behavioral disturbance, psychotic disturbance, mood disturbance, and anxiety; I48.91 Unspecified atrial fibrillation; M47.816 Spondylosis without myelopathy or radiculopathy, lumbar region; M47.814 Spondylosis without myelopathy or radiculopathy, thoracic region; M47.812 Spondylosis without myelopathy or radiculopathy, cervical region; J32.3 Chronic sphenoidal sinusitis; I45.10 Unspecified right bundle-branch block; W19.XXXA Unspecified fall, initial encounter
CPT/HCPCS: 36415; 70450; 72125; 72128; 72131; 80053; 80307; 81001; 82550; 84484; 85025; 93005; 99284; A9270; L0140

== ENCOUNTER 2023-11-02 05:24 | Inpatient (IN) | payer OTHER, SELFPAY ==
[2023-11-02] VITALS (12 sets, daily range): BP systolic 114–144; BP diastolic 64–99; PULSE 104–114; RESP 18–31; TEMP 36.5–37.2; O2SAT 94–99
--- NOTE | ~2023-11-02 | XR_ITS ---
EXAMINATION: XR surgery orthopedic DATE: 11/03/2023 15:25 INDICATION: Left hip intertrochanteric nailing. TECHNIQUE: 6 fluoroscopic images of the left hip or femur were obtained during procedure performed by Dr. Olson. Radiologist was not present for the imaging or procedure. The amount of fluoroscopy jaswant e used during this procedure was 0.8 minutes. COMPARISON: None. FINDINGS: Interval reduction of the comminuted intratrochanteric fracture of the proximal left femur with antegrade intramedullary shelly and dynamic femoral neck compression screw fixation. Alignment is n ear-anatomic. No other fractures identified. Mild osteoarthritis at the left hip. Expected small amou nt of postoperative soft tissue gas lateral to the left hip. IMPRESSION: 1. Near-anatomic alignment post internal fixation of a comminuted intratrochanteric fracture of the p roximal left femur. Reviewed, dictated and finalized at location A. ICAL REVIEW NURSE IMPRESSION: 1. Near-anatomic alignment post internal fixation of a comminuted intratrochant katrin fracture of the proximal left femur.
--- NOTE | ~2023-11-02 | XR_ITS ---
AP view of the pelvis and AP and lateral views of the left hip Clinical history: Pain Findings: There is an intertrochanteric fracture of the proximal left femur, with mild comminution an d mild displacement. No other fracture or dislocation seen. Bilateral hip and SI joint spaces are pre served. Soft tissues are unremarkable. Impression: Acute, mildly displaced, comminuted intertrochanteric fracture of the proximal left femur. Reviewed, dictated and finalized at location . [facility] Impression: Acute, mildly displaced, comminuted intertrochanteric fracture of the proximal left femur.
--- NOTE | 2023-11-02 05:33 | ECG_ITS ---
Measurements Intervals Ivor Rate: 103 P: SC: 0 QRS: -23 QRSD: 93 T: -44 QT: 371 QTc: 487 Interpretive Statements ATRIAL FIBRILLATION WITH RAPID VENTRICULAR RESPONSE BORDERLINE LEFT AXIS DEVIATION [QRS AXIS < -20] NONSPECIFIC ST & T-WAVE ABNORMALITY ABNORMAL ECG COMPARED TO ECG 06/28/2023 05:54:02 T-WAVE ABNORMALITY NOW PRESENT Electronically Signed On 11-02-2023 11:52:06 [facility] by Jac Kumar M.D.
[2023-11-02] MEDS: ACETAMINOPHEN 500 MG TABLET 1000 MG PO (06:24)
[2023-11-02] MEDS: SODIUM CHLORIDE 0.9% IV 1,000 ML 999 ML IV CONT (06:24)
[2023-11-02 06:42] LABS: Basophils Percent Auto 0.1 % (0.2-1.2); Eosinophils Percent Auto 0.1 % (0-4.4); Hematocrit 36.4 % (37.0-47.0); Hemoglobin 11.5 g/dL (12.0-15.0); Immature Granulocyte Absolute 0.08 K/mm3 (0.00-0.031); Immature Granulocyte Percent A 0.6 % (0-0.5); Immature Platelet Fraction Pct 10.1 % (0.9-11.2); Lymphocytes Absolute Auto 0.89 K/mm3 (0.9-3.2); Lymphocytes Percent Auto 6.9 % (18.3-44.2); Mean Corpuscular HGB Conc 31.6 g/dl (32-36); Mean Corpuscular Volume 91.7 fl (80-100); Mean Platelet Volume 11.6 fl (7.4-10.4); Monocytes Absolute Auto 0.9 K/mm3 (0.1-0.6); Monocytes Percent Auto 7.2 % (2.6-8.5); Neutrophils Percent Auto 85.1 % (45.5-73.1); Platelet Count Result 121 k/mm3 (150-375); Red Blood Count 3.97 M/mm3 (4.2-5.4); Red Cell Distribution Width 13.7 % (11.5-14.5)
[2023-11-02 06:52] LABS: Alanine Aminotransferase 28 U/L (6-35); Albumin Level 3.6 g/dL (3.5-5.1); Alkaline Phosphatase 79 U/L (38-126); Anion Gap 5 mmol/L (8-16); Aspartate Amino Transferase 33 U/L (14-36); Bilirubin,Total 1.4 mg/dL (0.2-1.3); Blood Urea Nitrogen 32 mg/dL (7-17); Calcium 8.6 mg/dL (8.4-10.2); Carbon Dioxide 28 mmol/L (22-30); Chloride 107 mmol/L (98-107); Estimated CRCL calculation 51 ml/min; Estimated Glomerular Filt Rate > 60; Glucose 117 mg/dL (65-110); Potassium 3.1 mmol/L (3.4-5.0); Sodium 140 mmol/L (137-145)
[2023-11-02 06:53] LABS: INR 1.1; Prothrombin Time 14.8 Seconds (11.1-14.7)
[2023-11-02 06:54] LABS: Partial Thromboplastin Time 24.6 SECONDS (22.3-36.8)
[2023-11-02] MEDS: MORPHINE SULFATE (*CRX) 2 MG/ML INJ IV PUSH ×2 (07:44→18:05)
[2023-11-02 08:04] LABS: Appearance Urine Cloudy (Clear); Bilirubin Urine Negative (Negative); Blood Urine Negative (Negative); Color Urine Dark Yellow (Yellow); Glucose Urine UA Negative (Negative); Ketones Urine Negative (Negative); Leukocyte Esterase Ur 2+ LEU/UL (Negative); Need Manual Microscopic Need Manual; Nitrate Urine Positive (Negative); Protein Urine 1+ mg/dL (Negative); RBC Urine 0-2 /hpf (0-2); Specific Grav Ur 1.029 (1.001-1.035); Squamous Epithelial Cell Urine Few /hpf (Few); WBC Urine 51-100 /hpf
[2023-11-02 08:17] LABS: Bacteria Urine 3+ /hpf
[2023-11-02 08:18] LABS: Add Urine Microscopic? YES
--- NOTE | 2023-11-02 08:55 | ED.FALL ---
HPI - Fall General Chief Complaint: Fall Stated Complaint: HIP FX S/P FALL 2 DAYS AGO Time Seen by Provider: 11/02/23 05:52 History of Present Illness HPI Narrative: patient is an 88-year-old female who presents ER with concerns for hip fracture. She fell out of bed 2 days ago commands did up toe walk yesterday evening and fell again with worsening leg pain. She is oriented x1 and cannot provide history. She does have bruising over the left hip and tenderness. Related Data Home Medications Medication Instructions Recorded Confirmed aspirin 81 mg tablet,delayed 81 mg PO DAILY 08/20/19 07/29/23 release latanoprost 0.005 % eye drops 1 drop ophthalmic (eye) QPM 08/20/19 07/29/23 memantine 10 mg tablet (Namenda) 10 mg PO BID 08/20/19 07/29/23 polyethylene glycol 3350 17 gram 17 gm PO DAILY 08/20/19 07/29/23 oral powder packet (Miralax) timolol maleate 0.25 % eye drops 1 drop ophthalmic (eye) Q12H 08/20/19 07/29/23 Allergies Allergy/AdvReac Type Severity Reaction Status Date / Time No Known Allergies Allergy Verified 07/12/23 09:55 Review of Systems Review of Systems: ROS unobtainable: Yes unobtainable due to mental status PMFSH Past Medical History Medical History (Updated 11/02/23 @ 08:59 by Blake Lehman MD) Depression Essential (primary) hypertension Major depressive disorder, single episode, unspecified Mild dementia Pure hypercholesterolemia Total retinal detachment, left eye Surgical History Surgical History (Updated 11/02/23 @ 08:57 by Blake Lehman MD) Surgical history unknown Family History Family History Father Family history of malignant neoplasm Mother Family history of coronary artery disease Social History Social History Smoking status: Never smoker Second hand tobacco smoke exposure: No Alcohol intake: never Substance use: never Substance use type: does not use Lack of Transportation: No Lack of Food: Never True Current Housing: I Have Housing Concerned About Future Housing: No Difficulty Paying Gas/Electric Bills: No Difficulty Paying for Meds: No Currently Unemployed: No Education: Decline to Answer Difficulty w/ Childcare or Family Care: No Living arrangements: with family Occupation/Education: retired Gender identity (if verbalized by the patient): Female Exam Narrative: GENERAL: Uncomfortable-appearing, well-nourished, and in no acute distress. HEAD: Normocephalic, atraumatic. EYES: PERRL and EOMI. ENT: Mucous membranes moist. CHEST: Clear to auscultation. No respiratory distress. HEART: Regular rate and rhythm. Normal peripheral pulses. ABDOMEN: Soft, nontender, nondistended. EXTREMITIES: Tender to palpation left hip with bruising in the area. No shortening and external rotation. Unremarkable right lower extremity or upper extremities. SKIN: Warm, dry, no rash. NEURO: Alert and oriented x1. Course Course Emergency Course: Family contacted and would like surgery. Orthopedic surgery consulted and patient will be admitted to the hospitalist service. Vital Signs Vital signs: Vital Signs Temperature 98.3 F 11/02/23 05:21 Pulse Rate 111 H 11/02/23 05:21 Respiratory Rate 28 H 11/02/23 05:21 Blood Pressure 140/73 11/02/23 05:21 Pulse Oximetry 99 11/02/23 05:21 Temperature 98.3 F 11/02/23 05:31 Pulse Rate 114 H 11/02/23 08:54 Respiratory Rate 24 H 11/02/23 08:54 Blood Pressure 126/71 11/02/23 08:54 Pulse Oximetry 99 11/02/23 08:54 MDM - Fall Lab Data 11/02/23 06:31 11/02/23 06:31 Labs: Lab Results 11/02/23 11/02/23 Range/Units 06:31 07:32 WBC 13.0 H (4.5-10.0) K/mm3 RBC 3.97 L (4.2-5.4) M/mm3 Hgb 11.5 L (12.0-15.0) g/dL Hct 36.4 L (37.0-47.0) % MCV 91.7 (80-100) fl MCH 29.0 (26-34) pg MCHC 31.6 L
--- NOTE | 2023-11-02 10:00 | ADMGEN ---
This patient, Valentina Machado, was admitted to [facility] Surg Room 306-02. Patient/family oriented to hospital policies and general routines including ID bracelet, bed and alarms, visiting hours, pain management, procedures, bathroom and other care routines, personal items, smoking policy, room service/diet, and visiting hours. Information on how to activate the Rapid Response Team has been discussed. Patient/Family are encouraged to report perceived risks to care and to ask questions if they do not understand what they are told or what they should do.
--- NOTE | 2023-11-02 12:45 | PM.CNOR ---
Assessment and Plan Assessment and plan (1) Hip fracture, intertrochanteric: Qualifiers: Encounter type: initial encounter Fracture alignment: displaced Fracture type: closed Laterality: left Qualified Code(s): S72.142A - Displaced intertrochanteric fracture of left femur, initial encounter for closed fracture Code(s): S72.143A - Displaced intertrochanteric fracture of unspecified femur, initial encounter for closed fracture Status: Acute Assessment and Plan: New patient evaluation for chief complaint Left hip fracture. History, physical exam and radiographs reviewed with the patient And family. left hip intertrochanteric fracture. Discussed the condition, nature, etiology and course of natural history with the patient. Treatment options including surgical and nonoperative treatment were reviewed. Risks and benefits of each as well as alternatives reviewed. The patient's questions were answered. Conservative treatment ice, compression, Pain control. mechanical DVT prophylaxis. Recommend surgical fixation. (2) UTI (urinary tract infection): Qualifiers: Urinary tract infection type: acute cystitis Hematuria presence: without hematuria Qualified Code(s): N30.00 - Acute cystitis without hematuria Code(s): N39.0 - Urinary tract infection, site not specified Status: Acute Assessment and Plan: Started on IV abx. Will allow 24hrs abx prior to proceed with surgery Plan Discussed nonoperative and operative treatment options with the patient. Risks and benefits of each as well as alternatives were reviewed. All of the patient's questions were answered. The risks of surgery reviewed including but not limited to: Neurovascular damage, wound complication, infection, blood clot, pulmonary embolus, stroke, myocardial infarction, and anesthetic risks up to and including . Continued pain and possible dysfunction were explained. Specific risks of the procedure including later recurrence of deformity. No guarantees were offered. If hardware used, discussed risk of failure/ breakage and possible need for removal. If complications occur, the patient understands the need for further treatment, possible further surgery. Patient verbalizes understanding and wishes to proceed. PLAN: Left hip reduction with intramedullary hip screw History of Present Illness HPI Consult date: 11/02/23 Requesting physician: Blake Lehman MD Chief complaint: hip fracture,uti Narrative: 88-year-old with dementia fall yesterday. Found to have left hip fracture. Admitted for further care. Complains of left hip pain. Review of Systems Constitutional: Constitutional: Denies fever(s) Eyes: Eyes: Denies blurry vision ENT: Reports Normal hearing present Cardiovascular: Cardiovascular: Denies chest pain and Denies dyspnea Respiratory: Respiratory: Denies dyspnea and Denies wheezing Gastrointestinal: Gastrointestinal: Denies abdominal pain Genitourinary: Genitourinary: Denies urinary urgency Musculoskeletal: Musculoskeletal: Reports as per HPI and Denies numbness Integumentary/Breasts: Skin/Breast: Denies changing lesions and Denies sores Neurologic: Reports Normal hearing present, Denies behavioral changes, Denies confusion, Denies numbness and Denies convulsions Psychiatric: Psychiatric: Denies behavioral changes, Denies confusion and Denies hallucinations Endocrine: Endocrine: Denies heat intolerance Hematologic/Lymphatic: Hematologic/Lymphatic: Denies easy bleeding Allergic/Immunologic: Allergic/Immunologic: Denies wheezing PMFSH Past Medical History Medical History (Updated 11/02/23 @ 14:11 by Jhonathan Olson MD) Depression Essential (primary) hypertension Major depressive disorder, single episode, unspecified Mild dementia Pure hypercholesterolemia Total retinal detachment, left eye Surgical History Surgical History (Updated 11/02/23 @ 08:57 by Blake Mehta
--- NOTE | 2023-11-02 13:07 | PM.IMHP ---
H&P: HPI History of Present Illness Date/Time: 11/02/23 13:07 Chief Complaint: Fall, Hip Pain Narrative: 88 y/o F presents here for evaluation of hip pain post-fall with PMH of AFib (not on anticoagulation), depression, HTN, dementia, osteoarthritis, osteopenia, and total retinal detachment (L eye). Patient presented here via EMS from [facility] for evaluation of left hip pain. Patient sustained 2 ground level falls. First fall was 2 days ago with a unwitnessed fall out of bed. Second was yesterday while patient was ambulating with a up toe walk . Patient complained of worsening left hip and left leg pain. Underwent XR of hip and results were given to NH this morning which showed a fracture. Patient has history of dementia with baseline orientation of A/Ox1. Remains minimally interactive, HPI obtained through chart review and provider report. Initial VS at presentation: 98.3 F, half HR 111, RR 28, and 140/73, 99% on RA. ED workup showed mild leukocytosis with WBC of 13.0, mild anemia at 11.5, creatinine 0.50, potassium 3.1, and UA suspicious for UTI. XR of the hip and pelvis showed acute mildly displaced comminuted intertrochanteric fracture proximal left femur. EKG showed AFib with rate of 103. Review of Systems Review of Systems: All systems reviewed & are unremarkable except as noted in HPI and below PMFSH Past Medical History Medical History (Updated 11/02/23 @ 16:35 by Antionette Brennan APRN) Atrial fibrillation Dementia Depression TASHIA (generalized anxiety disorder) HLD (hyperlipidemia) HTN (hypertension) Osteopenia Total retinal detachment, left eye Vitamin D deficiency Surgical History Surgical History (Updated 11/02/23 @ 08:57 by Blake Lehman MD) Surgical history unknown Family History Family History Father Family history of malignant neoplasm Mother Family history of coronary artery disease Social History Social History Smoking status: Never smoker Second hand tobacco smoke exposure: No Alcohol intake: never Substance use: never Substance use type: does not use Lack of Transportation: No Lack of Food: Never True Current Housing: I Have Housing Concerned About Future Housing: No Difficulty Paying Gas/Electric Bills: No Difficulty Paying for Meds: No Currently Unemployed: No Education: Decline to Answer Difficulty w/ Childcare or Family Care: No Living arrangements: with family Occupation/Education: retired Gender identity (if verbalized by the patient): Female Spiritual care concerns: No Meds Home Medications and Allergies Home Medications Medication Instructions Recorded Confirmed Type aspirin 81 mg tablet,delayed 81 mg PO DAILY 08/20/19 11/02/23 History release memantine 10 mg tablet (Namenda) 10 mg PO DAILY 08/20/19 11/02/23 History polyethylene glycol 3350 17 gram 17 gm PO DAILY PRN Constipation 08/20/19 11/02/23 History oral powder packet (Miralax) nystatin 100,000 unit/gram topical 1 applic topical BID #60 grams 03/12/21 11/02/23 Rx powder pravastatin 20 mg tablet 20 mg PO DAILY #90 tabs 01/04/22 11/02/23 Rx acetaminophen 325 mg capsule 325 mg PO Q6H PRN Fever Or Pain 11/02/23 11/02/23 History sertraline 50 mg tablet 50 mg PO DAILY 11/02/23 History Allergies Allergy/AdvReac Type Severity Reaction Status Date / Time No Known Allergies Allergy Verified 07/12/23 09:55 Vital Signs Vital Signs - 24 hr 11/02/23 05:21 11/02/23 05:31 11/02/23 07:40 Temperature 98.3 F 98.3 F Pulse Rate 111 H 109 H 109 H Respiratory Rate 28 H 27 H 31 H Blood Pressure 140/73 139/76 144/89 H Pulse Oximetry 99 99 99 11/02/23 08:54 11/02/23 09:37 11/02/23 10:10 Temperature 97.9 F Pulse Rate 114 H 104 H 104 H Respiratory Rate 24 H 26 H 18 Blood Pressure 126/71 114/99 H 131/65 Pulse Oximetry 99 99 98 Exam Const:
[2023-11-02] MEDS: LACTATED RINGERS 1,000 ML 100 ML IV CONT (14:29)
[2023-11-02] MEDS: PANTOPRAZOLE SODIUM IV 40 MG VIAL IV PUSH (14:30)
[2023-11-02] MEDS: TOLNAFTATE 1% POWDER 45 GM BTL 1 APPLIC TOPICAL ×2 (14:31→20:58)
[2023-11-02] MEDS: METOPROLOL TARTRATE INJ 5 MG/5 ML VIAL IV PUSH (18:04)
[2023-11-03] VITALS (14 sets, daily range): BP systolic 85–148; BP diastolic 55–87; PULSE 90–110; RESP 14–20; TEMP 36.2–37.1; O2SAT 91–100; BMI 17.7
[2023-11-03 06:04] LABS: Hematocrit 33.5 % (37.0-47.0); Hemoglobin 10.4 g/dL (12.0-15.0); Immature Platelet Fraction Pct 10.1 % (0.9-11.2); Mean Corpuscular Hemoglobin 29.1 pg (26-34); Mean Corpuscular Volume 93.8 fl (80-100); Mean Platelet Volume 11.6 fl (7.4-10.4); Platelet Count Result 116 k/mm3 (150-375); Red Blood Count 3.57 M/mm3 (4.2-5.4); White Blood Count 11.1 K/mm3 (4.5-10.0)
[2023-11-03 06:26] LABS: Anion Gap 3 mmol/L (8-16); Blood Urea Nitrogen 26 mg/dL (7-17); Calcium 8.5 mg/dL (8.4-10.2); Carbon Dioxide 27 mmol/L (22-30); Chloride 108 mmol/L (98-107); Estimated CRCL calculation 51 ml/min; Estimated Glomerular Filt Rate > 60; Glucose 108 mg/dL (65-110); Potassium 3.4 mmol/L (3.4-5.0); Sodium 138 mmol/L (137-145)
--- NOTE | 2023-11-03 07:11 | WPDHPUPDATE1 ---
History and Physical Update Update Date/Time: 11/03/23 07:11 History and Physical has been reviewed, including an updated exam of the patient. There are NO changes in the patient's condition. Risks, benefits, and alternatives have been discussed and questions answered. Patient agrees to proceed with procedure.
--- NOTE | 2023-11-03 07:43 | PM.PNORT ---
Progress Note: A&P Assessment and Plan (1) Hip fracture, intertrochanteric: Qualifiers: Encounter type: initial encounter Fracture alignment: displaced Fracture type: closed Laterality: left Qualified Code(s): S72.142A - Displaced intertrochanteric fracture of left femur, initial encounter for closed fracture Code(s): S72.143A - Displaced intertrochanteric fracture of unspecified femur, initial encounter for closed fracture Status: Acute Assessment and Plan: Discussed with family and power tax associate attorney. Operative and non operative treatment options including risks, benefits and alternatives reviewed in detail. Expected outcomes and recovery discussed. Family and power of tax associate attorney desire operative treatment. Discussed surgical treatment Plan, risks, benefits and alternatives. plan: Left hip reduction with intramedullary hip screw fixation. Subjective Subjective Date/Time Seen: 11/03/23 07:43 Principal diagnosis: left hip intertrochanteric fracture Interval history: no events overnight. Exam Const: General: alert and confusion Orientation/consciousness: oriented to person, No oriented to place, No oriented to time and confusion HENMT: Head: normal to inspection, normocephalic and atraumatic Eyes: Conjunctivae: conjunctivae normal Sclera: sclerae normal Neck: Neck: supple and nontender Chest: Chest palpation & inspection: normal inspection of the chest Resp: Effort & Inspection: normal respiratory effort and no audible wheezes Cardio: Rate: regular rate Rhythm: regular rhythm : General: Yes deferred Skin: General skin exam: no rashes or lesions noted Neuro: General: oriented to person, No oriented to place, No oriented to time and No confusion Extrem: General: capillary refill normal Right upper extremity: normal to inspection Left upper extremity: normal to inspection Right lower extremity: normal to inspection, hip/thigh Details: normal to inspection and normal ROM; no tenderness and no swelling, knee Details: no tenderness and no swelling, ankle Details: normal ROM (Able to flex and extend the ankle) and foot Details: vascular exam Details: dorsalis pedis pulse present and normal capillary refill, tendon exam (Moves all toes) and motor-sensory exam Details: light-touch normal Location: in all toes Left lower extremity: hip/thigh Details: tenderness Location: of the hip Location: laterally and anteriorly, swelling Location: of the hip and abnormal ROM Details: pain with passive ROM (Full motion deferred secondary to fracture) Details: with flexion, with internal rotation and with external rotation, ankle (no calf tenderness) Details: normal ROM (Able to flex/ extend ankle) and foot Details: toes with normal ROM (Moves all toes), vascular exam Details: dorsalis pedis pulse present and normal capillary refill and motor-sensory exam light-touch normal in all toes; no tenderness Objective Data Vital Signs Vital Signs: Vital Signs - 24 hr 11/02/23 08:54 11/02/23 09:37 11/02/23 10:10 Temperature 97.9 F Pulse Rate 114 H 104 H 104 H Respiratory Rate 24 H 26 H 18 Blood Pressure 126/71 114/99 H 131/65 Pulse Oximetry 99 99 98 Oxygen Delivery 11/02/23 14:00 11/02/23 10:35 11/02/23 17:43 Temperature 97.7 F Pulse Rate 112 H Respiratory Rate 18 Blood Pressure 140/64 Pulse Oximetry 94 98 96 Oxygen Delivery Room Air Room Air 11/02/23 18:04 11/02/23 20:40 11/02/23 20:02 Temperature Pulse Rate 113 H 114 H Respiratory Rate Blood Pressure Pulse Oximetry Oxygen Delivery Room Air 11/02/23 21:32 11/03/23 00:02 11/03/23 04:02 Temperature 98.9 F Pulse Rate 109 H 104 H 109 H Respiratory Rate 18 Blood Pressure 118/77 Pulse Oximetry 95 Oxygen Delivery Intake/Output Intake/Output: Intake & Output 10/31/23 11/01/23 11/02/23 11/03/23 23:59 23:59 23:59 23:59 Intake Total 1050 Balance 1050 Meds/Results Medicatio
--- NOTE | 2023-11-03 08:21 | PM.IMPN ---
Progress Note: A&P Assessment and Plan (1) HTN (hypertension): Code(s): I10 - Essential (primary) hypertension Status: Chronic (2) Atrial fibrillation: Code(s): I48.91 - Unspecified atrial fibrillation Status: Acute (3) UTI (urinary tract infection): Qualifiers: Hematuria presence: without hematuria Urinary tract infection type: acute cystitis Qualified Code(s): N30.00 - Acute cystitis without hematuria Code(s): N39.0 - Urinary tract infection, site not specified Status: Acute (4) Hip fracture, intertrochanteric: Qualifiers: Encounter type: initial encounter Fracture alignment: displaced Fracture type: closed Laterality: left Qualified Code(s): S72.142A - Displaced intertrochanteric fracture of left femur, initial encounter for closed fracture Code(s): S72.143A - Displaced intertrochanteric fracture of unspecified femur, initial encounter for closed fracture Status: Acute (5) Fall: Qualifiers: Encounter type: initial encounter Qualified Code(s): W19.XXXA - Unspecified fall, initial encounter Code(s): W19.XXXA - Unspecified fall, initial encounter Status: Acute (6) Nodule of right lung: Code(s): R91.1 - Solitary pulmonary nodule Status: Acute Plan (1) Hip fracture, intertrochanteric: ?Qualifiers: ?Encounter type:?initial encounter??Fracture alignment:?displaced??Fracture type:?closed??Laterality:?left? Qualified Code(s):?S72.142A - Displaced intertrochanteric fracture of left femur, initial encounter for closed fracture ?Code(s): S72.143A - Displaced intertrochanteric fracture of unspecified femur, initial encounter for closed fracture ?Status:?Acute ?Assessment and Plan: - XR hip/pelvis: acute, mildly displaced, comminuted intertrochanteric fracture of the proximal left femur. - bedrest - neurovasc checks - see order for intervals - SCDs - urinary catheter - heart healthy diet, NPO at midnight - pain management: Tyl, morphine, norco, and narcan PRN - zofran PRN for nausea - monitor labs in AM - CBC and BMP - bowel regimen: docusate/senna. continue home miralax. - maintenance fluids: LR 100 mL/hr - continue ASA on 11/04 Appreciate orthopedic surgeon consultation, plans Left?intertrochanteric fracture of the proximal left femur with plan for?left hip reduction with intramedullary hip screw. Consult PT OT, care asst for evaluation and assisting placement in a (2) UTI (urinary tract infection): ?Code(s): N39.0 - Urinary tract infection, site not specified ?Status:?Acute ?Assessment and Plan: - UA:? Cloudy, 1+ protein, positive nitrates, 2.0 uro bili gin, 2+ leuk esterase, 51-100 WBC, few epithelial cells, 3+ bacteria, 3-5 casts - UC pending - ceftriaxone 1G Q24H started on 11/02/23 - mijares in place (3) Atrial fibrillation: ?Code(s): I48.91 - Unspecified atrial fibrillation ?Status:?Acute ?Assessment and Plan: - EKG: AFib RVR with rate of 103, torres, nonspecific ST and T-wave abnormality, when compared to EKG in June of 2023 T-wave abnormality now present. - not currently on medications - HR 112, remains irregular on exam. Trial 5 mg IVP, may repeat if HR does not improve. - tele monitoring Home Meds/Chronic Conditions - dementia: continue Namenda - HLD: continue home statin Diet: heart healthy, NPO at midnight GI Prophylaxis: pantoprazole 40 IVP daily DVT Prophylaxis: SCDs, hold pharm - planned surgical managment Lines: pIV Code Status: DNR Subjective Date/time seen: 11/03/23 08:21 Interval history: I saw and examined patient today. Patient is a poor historian, and has dementia, unable to write history, and patient is not oriented x3. Patient has no obvious distress. Patient denied chest pain, shortness of breath, abdomen pain, nausea vomiting. Patient denies neck pain at rest. Patient is afebrile, blood pressure s
[2023-11-03] MEDS: PANTOPRAZOLE SODIUM IV 40 MG VIAL IV PUSH (08:42)
[2023-11-03] MEDS: TOLNAFTATE 1% POWDER 45 GM BTL 1 APPLIC TOPICAL ×2 (08:43→20:38)
--- NOTE | 2023-11-03 13:00 | WPDANESEPPF ---
Anes - Initial Pre Proc Eval Procedure: Operation Date: 11/03/23 14:30 Proposed Procedures p Left Intertrochanteric Nail - Jhonathan Olson MD Date/Time: 11/03/23 13:00 Surgeon: Trenton Anaya MD Pre Op Diagnosis: hip fracture,uti Patient Data Age: 88 Gender: F Height: 1.65 m Weight: 48.3 kg Last Vital Signs Temp 37.1 C 11/03/23 06:00 Pulse 110 H 11/03/23 06:00 Resp 18 11/03/23 06:00 BP 145/80 H 11/03/23 06:00 Pulse Ox 97 11/03/23 06:00 O2 Del Method Room Air 11/03/23 08:00 Allergies Allergy/AdvReac Type Severity Reaction Status Date / Time No Known Allergies Allergy Verified 11/03/23 12:58 Home Medications Medication Instructions Recorded Confirmed Type aspirin 81 mg tablet,delayed 81 mg PO DAILY 08/20/19 11/02/23 History release memantine 10 mg tablet (Namenda) 10 mg PO DAILY 08/20/19 11/02/23 History polyethylene glycol 3350 17 gram 17 gm PO DAILY PRN Constipation 08/20/19 11/02/23 History oral powder packet (Miralax) nystatin 100,000 unit/gram topical 1 applic topical BID #60 grams 03/12/21 11/02/23 Rx powder pravastatin 20 mg tablet 20 mg PO DAILY #90 tabs 01/04/22 11/02/23 Rx acetaminophen 325 mg capsule 325 mg PO Q6H PRN Fever Or Pain 11/02/23 11/02/23 History sertraline 50 mg tablet 50 mg PO DAILY 11/02/23 History Laboratory Tests 11/03/23 05:34 WBC 11.1 H K/mm3 (4.5-10.0) RBC 3.57 L M/mm3 (4.2-5.4) Hgb 10.4 L g/dL (12.0-15.0) Hct 33.5 L % (37.0-47.0) MCV 93.8 fl (80-100) MCH 29.1 pg (26-34) MCHC 31.0 L g/dl (32-36) RDW 14.0 % (11.5-14.5) Plt Count 116 L k/mm3 (150-375) MPV 11.6 H fl (7.4-10.4) % Immature Plt Fraction 10.1 % (0.9-11.2) Sodium 138 mmol/L (137-145) Potassium 3.4 mmol/L (3.4-5.0) Chloride 108 H mmol/L (98-107) Carbon Dioxide 27 mmol/L (22-30) Anion Gap 3 L mmol/L (8-16) BUN 26 H mg/dL (7-17) Creatinine 0.50 L mg/dL (0.7-1.0) Estim Creat Clear Calc 51 ml/min Estimated GFR > 60 (59 - ) Glucose 108 mg/dL (65-110) Calcium 8.5 mg/dL (8.4-10.2) Patient hx anesthesia problems: none Family hx anesthesia problems: none Results Review: All pre-operative results and documents have been reviewed as part of the pre-operative evaluation. [facility] Past Medical History Medical History (Updated 11/02/23 @ 16:35 by Antionette Brennan APRN) Atrial fibrillation Dementia Depression TASHIA (generalized anxiety disorder) HLD (hyperlipidemia) HTN (hypertension) Osteopenia Total retinal detachment, left eye Vitamin D deficiency Surgical History Surgical History (Updated 11/02/23 @ 08:57 by Blake Lehman MD) Surgical history unknown Family History Family History Father Family history of malignant neoplasm Mother Family history of coronary artery disease Social History Social History Smoking status: Never smoker Second hand tobacco smoke exposure: No Alcohol intake: never Substance use: never Substance use type: does not use Lack of Transportation: No Lack of Food: Never True Current Housing: I Have Housing Concerned About Future Housing: No Difficulty Paying Gas/Electric Bills: No Difficulty Paying for Meds: No Currently Unemployed: No Education: Decline to Answer Difficulty w/ Childcare or Family Care: No Living arrangements: with family Occupation/Education: retired Gender identity (if verbalized by the patient): Female Spiritual care concerns: No Anes - Eval Final PreProcedure Day of Procedure 11/03/23 13:00 Patient weight: normal Heart: regular rate and rhythm Lungs: clear to auscultation and normal air movement Airway: Mallampati scale class II Neurological: alert and oriented Last oral intake: >/= 8 hours ASA classification: IV Emergent: no
--- NOTE | 2023-11-03 13:04 | ECG_ITS ---
Measurements Intervals [place] Rate: 104 P: [place]: 0 QRS: -23 QRSD: 90 T: -64 QT: 365 QTc: 482 Interpretive Statements ATRIAL FIBRILLATION WITH RAPID VENTRICULAR RESPONSE BORDERLINE LEFT AXIS DEVIATION [QRS AXIS < -20] MODERATE ST DEPRESSION [0.05+ mV ST DEPRESSION] ABNORMAL ECG COMPARED TO ECG 11/02/2023 05:33:27 ST (T WAVE) DEVIATION NOW PRESENT Electronically Signed On 11-03-2023 14:00:52 [employer] by Jac Kumar M.D.
[2023-11-03] MEDS: KETOROLAC 15 MG/ML VIAL (*BKC) IV PUSH (13:22)
[2023-11-03] MEDS: TRANEXAMIC ACID 1,000MG/ISO100 1,000 MG/100 ML BAG 200 MG IVPB (14:16)
[2023-11-03] MEDS: LACTATED RINGERS 1,000 ML 30 ML IV CONT (14:17)
[2023-11-03] MEDS: ceFAZolin 2 GM/D5W 50 ML 2 GM/50 ML BAG IVPB (14:41)
[2023-11-03] MEDS: BUPIVACAINE/EPINEPHRINE 0.5% 30 ML VIAL INFILTRATE (14:57)
--- NOTE | 2023-11-03 15:25 | W.PM.PROC2 ---
Procedure Note - Detailed Date of Procedure 11/03/23 Pre-op Diagnosis hip fracture,uti Post-op Diagnosis Same Procedure Performed Intramedullary hip screw of left intertrochanteric fracture Surgeon Jhonathan Olson MD Legal Referee 1st insurance assistant Anesthesia General Indications 88-year-old woman who fell and sustained left hip intertrochanteric fracture. Family and [id number] desire operative treatment. Description of Procedure After informed consent the operative extremity was marked in the preoperative holding area. Patient received intravenous antibiotics. The patient was taken to the operative room, placed in the supine position, general anesthesia induced by the anesthesia team, and was placed on a fracture table with longitudinal traction applied to the left leg. The hip fracture was reduced to near anatomic position and verified with image intensification. A time-out was performed confirming the patient, site of the surgery and plan. The left lower extremity was prepped and draped sterilely from the knee to the iliac crest region using a ChloraPrep skin solution. Incision was made just proximal to greater trochanter down to the subcutaneous tissues. Hemostasis controlled with electrocautery. Blunt dissection through the fascia to the tip of the greater trochanter. A starter awl was placed at the tip of the greater trochanter into the medullary canal of the femur. This was checked with image intensification and was in good position. Intramedullary guide shelly positioned. A one-step hand reaming done proximally. Intramedullary canal was reamed with a 12.5 millimeter flexible reamer. Measuring was then performed off of the guide shelly. Neck angle selected off of preoperative radiographs temp plating. 125 degree 11 X 360 mm Nail opened on the back table and assembled. This was then inserted over the guide shelly to the correct depth. Guide shelly removed. Lag screw was then placed with a stab incision over the lateral femur using a 10 blade knife. Blunt dissection down to the lateral side of the bone. Soft tissue protectors placed. Guide pin placed in the center center position of the femoral head and measured. 90 millimeter x 10 millimeter lag screw placed to correct depth and verified with image intensification. Traction released from the leg and compression of the fracture performed with the external compression device. Distal locking of the nail necessary due to instability in the intramedullary canal and proximal femur. Stab incision made lateral mid thigh with the placement guide. Blunt dissection down lateral side of the femur. Soft tissue protector inserted. Image intensification used to guide drill which was placed through the locking hole. Distal femur measured and the appropriate size screw placed. Image intensification confirmed the placement through the locking hole. Final image intensification confirm reduction of the fracture and placement of the hardware. Wounds then thoroughly irrigated with antibiotic solution. Fascia repaired with 0 Vicryl interrupted suture. Subcutaneous tissue repaired with 00 Vicryl interrupted suture and skin approximated with 3-0 Monocryl interrupted suture and Dermabond. Sterile dressings applied. Patient then awoke from anesthesia, extubated, taken to recovery room stable condition. All sponge, needle and instrument counts correct at the end the case. Implants Arthrex trochanteric nail 11 x 360 mm x 125 degree, 90 mm lag screw, 34 mm distal locking screw. Estimated Blood Loss 100 Drains No Packing No Pathology None sent Complications None Condition Stable Disposition PACU [facility] Billing Surgery - Charge Forward: Surgery Billing ([id number])
[2023-11-03] MEDS: SODIUM CHLORIDE 0.9% IV 1,000 ML 70 ML IV CONT (16:59)
[2023-11-03] MEDS: OLANZapine 10 MG INJ VIAL IM (18:16)
[2023-11-03] MEDS: ceFAZolin 1 GM/NS 50 ML 1 GM/50 ML BAG IVPB (22:34)
[2023-11-04] VITALS (13 sets, daily range): BP systolic 118–159; BP diastolic 63–86; PULSE 78–110; RESP 13–18; TEMP 35.9–36.3; O2SAT 90–100
--- NOTE | 2023-11-04 08:20 | WPDANESPN ---
Anes - Prog Note Post-Op Date/Time: 11/04/23 08:20 Vital Signs: Last Vital Signs Temp 36.2 C L 11/04/23 06:01 Pulse 80 11/04/23 06:01 Resp 13 11/04/23 06:01 BP 123/70 11/04/23 06:01 Pulse Ox 99 11/04/23 06:01 O2 Del Method Nasal Cannula 11/03/23 16:15 O2 Flow Rate 2 11/03/23 16:15 Pain Score (VAS): 1 I/O: Intake & Output 11/03/23 11/04/23 11/04/23 23:59 07:59 15:59 Intake Total 100 Output Total 240 450 Balance -140 -450 Laboratory Tests 11/03/23 05:34 11/03/23 05:34 Microbiology 11/02/23 07:32 Urine Catheterized Urine Culture - Preliminary Escherichia Coli Patient Feedback: Patient satisfied with anesthetic care.
--- NOTE | 2023-11-04 08:46 | PCOTNOTE ---
Attempted to see pt. for occupational therapy evaluation. Pt. currently sleeping soundly and is unable to be aroused with repeated verbal and physical attempts. Following.
--- NOTE | 2023-11-04 08:49 | PM.IMPN ---
Progress Note: A&P Assessment and Plan (1) HTN (hypertension): Code(s): I10 - Essential (primary) hypertension Status: Chronic (2) Atrial fibrillation: Code(s): I48.91 - Unspecified atrial fibrillation Status: Acute (3) UTI (urinary tract infection): Qualifiers: Hematuria presence: without hematuria Urinary tract infection type: acute cystitis Qualified Code(s): N30.00 - Acute cystitis without hematuria Code(s): N39.0 - Urinary tract infection, site not specified Status: Acute (4) Hip fracture, intertrochanteric: Qualifiers: Encounter type: initial encounter Fracture alignment: displaced Fracture type: closed Laterality: left Qualified Code(s): S72.142A - Displaced intertrochanteric fracture of left femur, initial encounter for closed fracture Code(s): S72.143A - Displaced intertrochanteric fracture of unspecified femur, initial encounter for closed fracture Status: Acute (5) Fall: Qualifiers: Encounter type: initial encounter Qualified Code(s): W19.XXXA - Unspecified fall, initial encounter Code(s): W19.XXXA - Unspecified fall, initial encounter Status: Acute (6) Nodule of right lung: Code(s): R91.1 - Solitary pulmonary nodule Status: Acute Plan (1) Hip fracture, intertrochanteric: ?Qualifiers: ?Encounter type:?initial encounter??Fracture alignment:?displaced??Fracture type:?closed??Laterality:?left? Qualified Code(s):?S72.142A - Displaced intertrochanteric fracture of left femur, initial encounter for closed fracture ?Code(s): S72.143A - Displaced intertrochanteric fracture of unspecified femur, initial encounter for closed fracture ?Status:?Acute ?Assessment and Plan: - XR hip/pelvis: acute, mildly displaced, comminuted intertrochanteric fracture of the proximal left femur. - bedrest - neurovasc checks - see order for intervals - SCDs - urinary catheter - heart healthy diet, NPO at midnight - pain management: Tyl, morphine, norco, and narcan PRN - zofran PRN for nausea - monitor labs in AM - CBC and BMP - bowel regimen: docusate/senna. continue home miralax. - maintenance fluids: LR 100 mL/hr - continue ASA Appreciate orthopedic surgeon consultation, s/p Left?intertrochanteric fracture of the proximal left femur with plan for?left hip reduction with intramedullary hip screw, performed on 11/03 Consult PT OT, rn transitional care for evaluation and assisting placement i (2) UTI (urinary tract infection): ?Code(s): N39.0 - Urinary tract infection, site not specified ?Status:?Acute ?Assessment and Plan: - UA:? Cloudy, 1+ protein, positive nitrates, 2.0 uro bili gin, 2+ leuk esterase, 51-100 WBC, few epithelial cells, 3+ bacteria, 3-5 casts - UC grew e coli, pending susceptibility - ceftriaxone 1G Q24H started on 11/02/23 - mijares in place (3) Atrial fibrillation: ?Code(s): I48.91 - Unspecified atrial fibrillation ?Status:?Acute ?Assessment and Plan: - EKG: AFib RVR with rate of 103, torres, nonspecific ST and T-wave abnormality, when compared to EKG in June of 2023 T-wave abnormality now present. - not currently on medications - HR 112, remains irregular on exam. Trial 5 mg IVP, may repeat if HR does not improve. - tele monitoring Home Meds/Chronic Conditions - dementia: continue Namenda - HLD: continue home statin Diet: heart healthy, NPO at midnight GI Prophylaxis: pantoprazole 40 IVP daily DVT Prophylaxis: SCDs, hold pharm - planned surgical managment Lines: pIV Code Status: DNR Subjective Date/time seen: 11/04/23 08:49 Interval history: I saw and examined patient today. Patient is somnolent, patient said no to question about chest pain, shortness of breath, abdomen pain, nausea vomiting, . Patient is afebrile, blood pressure stable overnight, pulse ox 94 on room air Exam Narrative: GENERAL: Pleasant, in no acute
[2023-11-04] MEDS: SODIUM CHLORIDE 0.9% IV 1,000 ML 70 ML IV CONT (09:36)
--- NOTE | 2023-11-04 09:51 | PM.PNORT ---
Progress Note: A&P Assessment and Plan (1) Hip fracture, intertrochanteric: Qualifiers: Encounter type: initial encounter Fracture alignment: displaced Fracture type: closed Laterality: left Qualified Code(s): S72.142A - Displaced intertrochanteric fracture of left femur, initial encounter for closed fracture Code(s): S72.143A - Displaced intertrochanteric fracture of unspecified femur, initial encounter for closed fracture Status: Acute Assessment and Plan: POD #1 : Intramedullary hip screw of left intertrochanteric fracture Continue PT/OT when possible WBAT. Walker. HIGH FALL RISK. Continue pain control. Ice hip. Protect skin. DVT prophylaxis with Arixtra. SCDs. Incentive Spirometry Use- needs reinforcement. Monitor Dressing. Change daily and as needed. Bowel Regimen. Dispo: SNF pending progress with PT/OT and medical stability Time Spent With Patient Time: Reviewed history, exam, radiographs and current labs with attending MD and covering surgeon, Dr. Olson, who agrees with current plan as indicated above. No further recommendations from Dr. Olson at this time. Subjective Subjective Date/Time Seen: 11/04/23 09:51 Post Op day: 1 Interval history: POD #1: Intramedullary hip screw of left intertrochanteric fracture Patient resting. Rousable to voice. Not answering questions appropriately. Confused/combative overnight per RN. Pulling at mijares, IV, etc. Unable to work with PT/OT this morning due to current mental status. Review of Systems Review of Systems: ROS unobtainable: Yes unobtainable due to mental status Exam Const: General: comfortable Resp: Other: on NC O2 Urinary Catheter: Urinary Catheter: patent and draining and urine clear Extrem: Left lower extremity: hip/thigh Details: tenderness Location: of the hip Location: laterally, swelling and abnormal ROM (limited due to recent surgery ); no ecchymosis and no crepitus, ankle Details: normal ROM and foot (moves toes, sensation intact. ) Details: normal capillary refill and vascular exam Details: dorsalis pedis pulse present Objective Data Vital Signs Vital Signs: Vital Signs - 24 hr 11/03/23 13:00 11/03/23 15:22 11/03/23 15:35 Temperature 36.3 C L Pulse Rate 90 100 103 H Respiratory Rate 20 15 20 Blood Pressure 117/66 124/76 126/84 Pulse Oximetry 94 100 93 Oxygen Delivery Room Air Simple Face Mask Simple Face Mask Oxygen Flow Rate 6 8 Fraction of Inspired Oxygen 11/03/23 15:50 11/03/23 16:05 11/03/23 16:15 Temperature Pulse Rate 95 97 105 H Respiratory Rate 19 16 20 Blood Pressure 138/80 128/71 123/87 Pulse Oximetry 100 100 96 Oxygen Delivery Simple Face Mask Nasal Cannula Nasal Cannula Oxygen Flow Rate 8 2 2 Fraction of Inspired Oxygen 11/03/23 17:13 11/03/23 19:05 11/03/23 21:33 Temperature 36.4 C L 36.2 C L Pulse Rate 102 H 101 H Respiratory Rate 20 14 Blood Pressure 85/55 L 148/87 H 130/76 Pulse Oximetry 96 91 Oxygen Delivery Oxygen Flow Rate Fraction of Inspired Oxygen 11/03/23 21:34 11/03/23 20:20 11/04/23 00:00 Temperature 36.2 C L Pulse Rate 101 H 110 H 105 H Respiratory Rate 14 Blood Pressure 130/76 Pulse Oximetry 91 Oxygen Delivery Oxygen Flow Rate Fraction of Inspired Oxygen 11/04/23 02:13 11/04/23 04:00 11/04/23 06:00 Temperature 36.2 C L 36.2 C L Pulse Rate 83 79 80 Respiratory Rate 13 13 Blood Pressure 124/76 123/70 Pulse Oximetry 100 99 Oxygen Delivery Oxygen Flow Rate Fraction of Inspired Oxygen 11/04/23 06:01 11/04/23 08:30 Temperature 36.2 C L Pulse Rate 80 Respiratory Rate 13 Blood Pressure 123/70 Pulse Oximetry 99 96 Oxygen Delivery Nasal Cannula Oxygen Flow Rate 2 Fraction of Inspired Oxygen 28 Intake/Output Intake/Output: Intake & Output 11/01/23 11/02/23 11/03/23 11/04/23 23:59 23:59 23:59 23:59 Intake Total 4536 222 4140 Output Total 540 450 Balance
[2023-11-04 10:00] LABS: Basophils Percent Auto 0.1 % (0.2-1.2); Eosinophils Percent Auto 0.1 % (0-4.4); Hematocrit 29.5 % (37.0-47.0); Hemoglobin 9.2 g/dL (12.0-15.0); Immature Granulocyte Absolute 0.03 K/mm3 (0.00-0.031); Immature Granulocyte Percent A 0.4 % (0-0.5); Immature Platelet Fraction Pct 7.8 % (0.9-11.2); Lymphocytes Absolute Auto 0.58 K/mm3 (0.9-3.2); Lymphocytes Percent Auto 7.4 % (18.3-44.2); Mean Corpuscular HGB Conc 31.2 g/dl (32-36); Mean Corpuscular Hemoglobin 29.1 pg (26-34); Mean Corpuscular Volume 93.4 fl (80-100); Mean Platelet Volume 11.3 fl (7.4-10.4); Monocytes Absolute Auto 0.5 K/mm3 (0.1-0.6); Monocytes Percent Auto 6.3 % (2.6-8.5); Neutrophils Absolute Auto 6.7 K/mm3 (1.3-6.7); Neutrophils Percent Auto 85.7 % (45.5-73.1); Platelet Count Result 126 k/mm3 (150-375); Red Blood Count 3.16 M/mm3 (4.2-5.4); Red Cell Distribution Width 13.7 % (11.5-14.5); White Blood Count 7.8 K/mm3 (4.5-10.0)
[2023-11-04 10:12] LABS: Magnesium 2.2 mg/dL (1.6-2.3); Phosphorus 2.8 mg/dL (2.5-4.5)
[2023-11-04 10:47] LABS: Alanine Aminotransferase 29 U/L (6-35); Albumin Level 2.6 g/dL (3.5-5.1); Alkaline Phosphatase 89 U/L (38-126); Anion Gap 3 mmol/L (8-16); Aspartate Amino Transferase 49 U/L (14-36); Bilirubin,Total 0.8 mg/dL (0.2-1.3); Blood Urea Nitrogen 24 mg/dL (7-17); Calcium 7.8 mg/dL (8.4-10.2); Carbon Dioxide 27 mmol/L (22-30); Chloride 110 mmol/L (98-107); Estimated CRCL calculation 62 ml/min; Estimated Glomerular Filt Rate > 60; Glucose 92 mg/dL (65-110); Potassium 3.7 mmol/L (3.4-5.0); Sodium 140 mmol/L (137-145)
--- NOTE | 2023-11-04 10:59 | PCPTNOTE ---
attempted eval 10:58, unable to arouse pt with multiple attempts of verbal/tactile/positional change stimuli
[2023-11-04] MEDS: FONDAPARINUX SODIUM 2.5 MG/0.5 ML SYRINGE SUB-Q (14:07)
[2023-11-04] MEDS: PANTOPRAZOLE SODIUM IV 40 MG VIAL IV PUSH (14:07)
[2023-11-04] MEDS: TOLNAFTATE 1% POWDER 45 GM BTL 1 APPLIC TOPICAL ×2 (14:24→21:04)
[2023-11-04] MEDS: ceFAZolin 1 GM/NS 50 ML 1 GM/50 ML BAG IVPB (15:27)
--- NOTE | 2023-11-04 18:55 | PC.NURSE ---
Pt slept for the majority of the morning. Pt has been awake since 1500. Pt has been pulling at mijares and IV. Pt has been redirected, but needs close monitoring to avoid losing access. Pt is confused and restless. Therapy attempted to work with patient. Pt has been monitored for any changes in status.
[2023-11-05] VITALS (8 sets, daily range): BP systolic 122–139; BP diastolic 61–86; PULSE 68–106; RESP 14–18; TEMP 36.3–36.9; O2SAT 92–99
--- NOTE | 2023-11-05 04:31 | PC.NURSE ---
Pt. pulled out mijares and IV. Pt is confused and restless.
[2023-11-05 06:43] LABS: Basophils Percent Auto 0.1 % (0.2-1.2); Eosinophils Absolute Auto 0.1 K/mm3 (0-0.3); Eosinophils Percent Auto 0.7 % (0-4.4); Hematocrit 35.4 % (37.0-47.0); Hemoglobin 11.1 g/dL (12.0-15.0); Immature Granulocyte Absolute 0.08 K/mm3 (0.00-0.031); Immature Granulocyte Percent A 0.8 % (0-0.5); Lymphocytes Absolute Auto 0.54 K/mm3 (0.9-3.2); Lymphocytes Percent Auto 5.6 % (18.3-44.2); Mean Corpuscular HGB Conc 31.4 g/dl (32-36); Mean Corpuscular Hemoglobin 29.4 pg (26-34); Mean Corpuscular Volume 93.9 fl (80-100); Mean Platelet Volume 10.9 fl (7.4-10.4); Monocytes Absolute Auto 0.6 K/mm3 (0.1-0.6); Monocytes Percent Auto 5.7 % (2.6-8.5); Neutrophils Absolute Auto 8.5 K/mm3 (1.3-6.7); Neutrophils Percent Auto 87.1 % (45.5-73.1); Platelet Count Result 167 k/mm3 (150-375); Red Blood Count 3.77 M/mm3 (4.2-5.4); Red Cell Distribution Width 13.5 % (11.5-14.5); White Blood Count 9.7 K/mm3 (4.5-10.0)
[2023-11-05 06:55] LABS: Anion Gap 8 mmol/L (8-16); Blood Urea Nitrogen 18 mg/dL (7-17); Calcium 7.9 mg/dL (8.4-10.2); Carbon Dioxide 24 mmol/L (22-30); Chloride 108 mmol/L (98-107); Estimated CRCL calculation 62 ml/min; Estimated Glomerular Filt Rate > 60; Glucose 88 mg/dL (65-110); Magnesium 2.3 mg/dL (1.6-2.3); Potassium 3.1 mmol/L (3.4-5.0); Sodium 140 mmol/L (137-145)
--- NOTE | 2023-11-05 08:24 | PCOTNOTE ---
Attempted OT eval, spoke with RN prior. RN reports that patient is not oriented and is getting soft mitten restraints placed due to pulling out IVs and mijares. RN reports she is not appropriate to see at this time. Will follow.
--- NOTE | 2023-11-05 09:49 | PCPTNOTE ---
Patient treatment on hold for today. The RN states that the patient is not oriented at this time and has soft mitten restraints placed due to pulling out IV's. Will continue per PT plan of care.
[2023-11-05] MEDS: PANTOPRAZOLE SODIUM IV 40 MG VIAL IV PUSH (10:33)
[2023-11-05] MEDS: FONDAPARINUX SODIUM 2.5 MG/0.5 ML SYRINGE SUB-Q (10:33)
[2023-11-05] MEDS: SENNA/DOCUSATE SODIUM TABLET 2 TAB PO ×2 (10:34→18:05)
[2023-11-05] MEDS: MEMANTINE 10 MG TABLET PO (10:34)
[2023-11-05] MEDS: PRAVASTATIN SODIUM 20 MG TABLET PO (10:34)
[2023-11-05] MEDS: ASPIRIN 81 MG ENTERIC TABLET PO (10:34)
[2023-11-05] MEDS: polyethylene glycoL 3350 17 GM POWD.PACK PO (10:36)
[2023-11-05] MEDS: TOLNAFTATE 1% POWDER 45 GM BTL 1 APPLIC TOPICAL ×2 (10:37→21:22)
--- NOTE | 2023-11-05 15:45 | PM.IMPN ---
Progress Note: A&P Assessment and Plan (1) HTN (hypertension): Code(s): I10 - Essential (primary) hypertension Status: Chronic (2) Atrial fibrillation: Code(s): I48.91 - Unspecified atrial fibrillation Status: Acute (3) UTI (urinary tract infection): Qualifiers: Urinary tract infection type: acute cystitis Hematuria presence: without hematuria Qualified Code(s): N30.00 - Acute cystitis without hematuria Code(s): N39.0 - Urinary tract infection, site not specified Status: Acute (4) Hip fracture, intertrochanteric: Qualifiers: Encounter type: initial encounter Fracture alignment: displaced Fracture type: closed Laterality: left Qualified Code(s): S72.142A - Displaced intertrochanteric fracture of left femur, initial encounter for closed fracture Code(s): S72.143A - Displaced intertrochanteric fracture of unspecified femur, initial encounter for closed fracture Status: Acute (5) Fall: Qualifiers: Encounter type: initial encounter Qualified Code(s): W19.XXXA - Unspecified fall, initial encounter Code(s): W19.XXXA - Unspecified fall, initial encounter Status: Acute (6) Nodule of right lung: Code(s): R91.1 - Solitary pulmonary nodule Status: Acute Plan (1) Hip fracture, intertrochanteric: ?Qualifiers: ?Encounter type:?initial encounter??Fracture alignment:?displaced??Fracture type:?closed??Laterality:?left? Qualified Code(s):?S72.142A - Displaced intertrochanteric fracture of left femur, initial encounter for closed fracture ?Code(s): S72.143A - Displaced intertrochanteric fracture of unspecified femur, initial encounter for closed fracture ?Status:?Acute ?Assessment and Plan: - XR hip/pelvis: acute, mildly displaced, comminuted intertrochanteric fracture of the proximal left femur. - bedrest - neurovasc checks - see order for intervals - SCDs - urinary catheter - heart healthy diet, NPO at midnight - pain management: Tyl, morphine, norco, and narcan PRN - zofran PRN for nausea - monitor labs in AM - CBC and BMP - bowel regimen: docusate/senna. continue home miralax. - maintenance fluids: LR 100 mL/hr - continue ASA Appreciate orthopedic surgeon consultation, s/p Left?intertrochanteric fracture of the proximal left femur with plan for?left hip reduction with intramedullary hip screw, performed on 11/03 Consult PT OT, medicare compliance auditor for evaluation and assisting placement i (2) UTI (urinary tract infection): ?Code(s): N39.0 - Urinary tract infection, site not specified ?Status:?Acute ?Assessment and Plan: - UA:? Cloudy, 1+ protein, positive nitrates, 2.0 uro bili gin, 2+ leuk esterase, 51-100 WBC, few epithelial cells, 3+ bacteria, 3-5 casts - UC grew e coli, pending susceptibility - ceftriaxone 1G Q24H started on 11/02/23 - mijares in place (3) Atrial fibrillation: ?Code(s): I48.91 - Unspecified atrial fibrillation ?Status:?Acute ?Assessment and Plan: - EKG: AFib RVR with rate of 103, torres, nonspecific ST and T-wave abnormality, when compared to EKG in June of 2023 T-wave abnormality now present. - not currently on medications - HR 112, remains irregular on exam. Trial 5 mg IVP, may repeat if HR does not improve. - tele monitoring 4. Acute exacerbation of chronic encephalopathy; likely delirium superimposed on dementia 11/05/23: Falls, safety precautions Home Meds/Chronic Conditions - dementia: continue Namenda - HLD: continue home statin Diet: heart healthy GI Prophylaxis: pantoprazole 40 IVP daily DVT Prophylaxis: SCDs, hold pharm - planned surgical managment Lines: pIV Code Status: DNR Subjective Date/time seen: 11/05/23 15:45 Interval history: Seen and examined; being managed for a UTI and left hip fracture s/p Intramedullary hip screw of left intertrochanteric fracture, 11/03/23 Seems to be experiencing hospital delirium sup
[2023-11-06] VITALS (11 sets, daily range): BP systolic 122–140; BP diastolic 74–89; PULSE 64–150; RESP 14–16; TEMP 36.4–37.1; O2SAT 92–97
[2023-11-06] MEDS: SODIUM CHLORIDE 0.9% IV 1,000 ML 70 ML IV CONT ×2 (00:22→16:36)
[2023-11-06 06:21] LABS: Basophils Percent Auto 0.4 % (0.2-1.2); Eosinophils Absolute Auto 0.2 K/mm3 (0-0.3); Hematocrit 33.1 % (37.0-47.0); Hemoglobin 10.6 g/dL (12.0-15.0); Immature Granulocyte Absolute 0.08 K/mm3 (0.00-0.031); Lymphocytes Percent Auto 7.5 % (18.3-44.2); Mean Corpuscular Hemoglobin 29.3 pg (26-34); Mean Corpuscular Volume 91.4 fl (80-100); Mean Platelet Volume 10.5 fl (7.4-10.4); Monocytes Absolute Auto 0.4 K/mm3 (0.1-0.6); Monocytes Percent Auto 5.2 % (2.6-8.5); Neutrophils Absolute Auto 6.8 K/mm3 (1.3-6.7); Neutrophils Percent Auto 83.9 % (45.5-73.1); Platelet Count Result 182 k/mm3 (150-375); Red Blood Count 3.62 M/mm3 (4.2-5.4); Red Cell Distribution Width 13.4 % (11.5-14.5)
[2023-11-06 06:45] LABS: Alanine Aminotransferase 30 U/L (6-35); Albumin Level 3.2 g/dL (3.5-5.1); Alkaline Phosphatase 99 U/L (38-126); Anion Gap 6 mmol/L (8-16); Aspartate Amino Transferase 58 U/L (14-36); Bilirubin,Total 1.6 mg/dL (0.2-1.3); Blood Urea Nitrogen 17 mg/dL (7-17); Calcium 7.9 mg/dL (8.4-10.2); Carbon Dioxide 26 mmol/L (22-30); Chloride 106 mmol/L (98-107); Estimated CRCL calculation 51 ml/min; Estimated Glomerular Filt Rate > 60; Glucose 86 mg/dL (65-110); Magnesium 2.1 mg/dL (1.6-2.3); Phosphorus 1.7 mg/dL (2.5-4.5); Potassium 2.6 mmol/L (3.4-5.0); Sodium 138 mmol/L (137-145)
[2023-11-06] MEDS: polyethylene glycoL 3350 17 GM POWD.PACK PO (10:00)
[2023-11-06] MEDS: MEMANTINE 10 MG TABLET PO (10:01)
[2023-11-06] MEDS: SENNA/DOCUSATE SODIUM TABLET 2 TAB PO ×2 (10:01→16:26)
[2023-11-06] MEDS: PANTOPRAZOLE SODIUM IV 40 MG VIAL IV PUSH (10:01)
[2023-11-06] MEDS: ASPIRIN 81 MG ENTERIC TABLET PO (10:01)
[2023-11-06] MEDS: TOLNAFTATE 1% POWDER 45 GM BTL 1 APPLIC TOPICAL ×2 (10:01→20:30)
[2023-11-06] MEDS: PRAVASTATIN SODIUM 20 MG TABLET PO (10:01)
[2023-11-06] MEDS: POTASSIUM CHLORIDE 20 MEQ PACKET (FOR LIQUID) 40 MEQ PO ×2 (10:01→10:16)
[2023-11-06] MEDS: FONDAPARINUX SODIUM 2.5 MG/0.5 ML SYRINGE SUB-Q (10:02)
--- NOTE | 2023-11-06 11:37 | PM.IMPN ---
Progress Note: A&P Assessment and Plan (1) HTN (hypertension): Code(s): I10 - Essential (primary) hypertension Status: Chronic (2) Atrial fibrillation: Code(s): I48.91 - Unspecified atrial fibrillation Status: Acute (3) UTI (urinary tract infection): Qualifiers: Urinary tract infection type: acute cystitis Hematuria presence: without hematuria Qualified Code(s): N30.00 - Acute cystitis without hematuria Code(s): N39.0 - Urinary tract infection, site not specified Status: Acute (4) Hip fracture, intertrochanteric: Qualifiers: Encounter type: initial encounter Fracture alignment: displaced Fracture type: closed Laterality: left Qualified Code(s): S72.142A - Displaced intertrochanteric fracture of left femur, initial encounter for closed fracture Code(s): S72.143A - Displaced intertrochanteric fracture of unspecified femur, initial encounter for closed fracture Status: Acute (5) Fall: Qualifiers: Encounter type: initial encounter Qualified Code(s): W19.XXXA - Unspecified fall, initial encounter Code(s): W19.XXXA - Unspecified fall, initial encounter Status: Acute (6) Nodule of right lung: Code(s): R91.1 - Solitary pulmonary nodule Status: Acute Plan (1) Hip fracture, intertrochanteric: ?Qualifiers: ?Encounter type:?initial encounter??Fracture alignment:?displaced??Fracture type:?closed??Laterality:?left? Qualified Code(s):?S72.142A - Displaced intertrochanteric fracture of left femur, initial encounter for closed fracture ?Code(s): S72.143A - Displaced intertrochanteric fracture of unspecified femur, initial encounter for closed fracture ?Status:?Acute ?Assessment and Plan: - XR hip/pelvis: acute, mildly displaced, comminuted intertrochanteric fracture of the proximal left femur. - bedrest - neurovasc checks - see order for intervals - SCDs - urinary catheter - heart healthy diet, NPO at midnight - pain management: Tyl, morphine, norco, and narcan PRN - zofran PRN for nausea - monitor labs in AM - CBC and BMP - bowel regimen: docusate/senna. continue home miralax. - maintenance fluids: LR 100 mL/hr - continue ASA Appreciate orthopedic surgeon consultation, s/p Left?intertrochanteric fracture of the proximal left femur with plan for?left hip reduction with intramedullary hip screw, performed on 11/03 Consult PT OT, child care lead teacher for evaluation and assisting placement i (2) UTI (urinary tract infection): ?Code(s): N39.0 - Urinary tract infection, site not specified ?Status:?Acute ?Assessment and Plan: - UA:? Cloudy, 1+ protein, positive nitrates, 2.0 uro bili gin, 2+ leuk esterase, 51-100 WBC, few epithelial cells, 3+ bacteria, 3-5 casts - UC grew e coli, pending susceptibility - ceftriaxone 1G Q24H started on 11/02/23 - mijares in place (3) Atrial fibrillation: ?Code(s): I48.91 - Unspecified atrial fibrillation ?Status:?Acute ?Assessment and Plan: - EKG: AFib RVR with rate of 103, torres, nonspecific ST and T-wave abnormality, when compared to EKG in June of 2023 T-wave abnormality now present. - not currently on medications - HR 112, remains irregular on exam. Trial 5 mg IVP, may repeat if HR does not improve. - tele monitoring 4. Acute exacerbation of chronic encephalopathy; likely delirium superimposed on dementia 11/05/23: Falls, safety precautions Hypokalemia. Will replete and monitor Home Meds/Chronic Conditions - dementia: continue Namenda - HLD: continue home statin Diet: heart healthy GI Prophylaxis: pantoprazole 40 IVP daily DVT Prophylaxis: SCDs, hold pharm - planned surgical managment Lines: pIV Code Status: DNR Dispositions. Awaiting placement Time Spent With Patient Time with patient: 25 - 35 minutes Subjective Date/time seen: 11/06/23 11:37 Interval history: Seen and examined; being managed for a UTI and left hi
--- NOTE | 2023-11-06 16:15 | ECG_ITS ---
Measurements Intervals Riley Rate: 96 P: MN: 0 QRS: -13 QRSD: 85 T: -12 QT: 376 QTc: 475 Interpretive Statements ATRIAL FIBRILLATION NONSPECIFIC ST & T-WAVE ABNORMALITY ABNORMAL RHYTHM ECG COMPARED TO ECG 11/03/2023 13:17:52 NO DIFFERENCE Electronically Signed On 11-07-2023 7:04:58 [employer] by Angel Charles M.D.
[2023-11-06] MEDS: METOPROLOL TARTRATE 25 MG TABLET PO (16:26)
--- NOTE | 2023-11-06 17:40 | PC.NURSE ---
This RN found patient in her bed, Pt pulled her mitts off and had pulled her mijares out. MD called to notify, no answer, voicemail left.
[2023-11-07] VITALS (12 sets, daily range): BP systolic 114–133; BP diastolic 69–93; PULSE 57–145; RESP 17–20; TEMP 35.7–36.9; O2SAT 90–98
[2023-11-07] MEDS: MORPHINE SULFATE (*CRX) 2 MG/ML INJ IV PUSH (04:05)
[2023-11-07 06:11] LABS: Basophils Percent Auto 0.4 % (0.2-1.2); Eosinophils Absolute Auto 0.1 K/mm3 (0-0.3); Eosinophils Percent Auto 1.5 % (0-4.4); Hemoglobin 11.9 g/dL (12.0-15.0); Lymphocytes Absolute Auto 0.61 K/mm3 (0.9-3.2); Lymphocytes Percent Auto 6.4 % (18.3-44.2); Mean Corpuscular HGB Conc 30.5 g/dl (32-36); Mean Corpuscular Hemoglobin 28.7 pg (26-34); Mean Platelet Volume 10.5 fl (7.4-10.4); Monocytes Absolute Auto 0.5 K/mm3 (0.1-0.6); Monocytes Percent Auto 4.9 % (2.6-8.5); Neutrophils Absolute Auto 8.2 K/mm3 (1.3-6.7); Neutrophils Percent Auto 85.8 % (45.5-73.1); Platelet Count Result 216 k/mm3 (150-375); Red Blood Count 4.15 M/mm3 (4.2-5.4); Red Cell Distribution Width 13.2 % (11.5-14.5); White Blood Count 9.5 K/mm3 (4.5-10.0)
[2023-11-07] MEDS: SODIUM CHLORIDE 0.9% IV 1,000 ML 70 ML IV CONT (06:27)
[2023-11-07 06:45] LABS: Alanine Aminotransferase 32 U/L (6-35); Albumin Level 3.2 g/dL (3.5-5.1); Alkaline Phosphatase 91 U/L (38-126); Anion Gap 11 mmol/L (8-16); Aspartate Amino Transferase 60 U/L (14-36); Blood Urea Nitrogen 10 mg/dL (7-17); Calcium 7.6 mg/dL (8.4-10.2); Carbon Dioxide 20 mmol/L (22-30); Chloride 104 mmol/L (98-107); Estimated CRCL calculation 62 ml/min; Estimated Glomerular Filt Rate > 60; Glucose 83 mg/dL (65-110); Potassium 2.6 mmol/L (3.4-5.0); Sodium 135 mmol/L (137-145)
[2023-11-07] MEDS: POTASSIUM CHLORIDE INJ 40 MEQ in SODIUM CHLORIDE 0.9% IV 500 ML 130 MEQ IVPB (07:36)
--- NOTE | 2023-11-07 08:11 | PM.IMPN ---
Progress Note: A&P Assessment and Plan (1) HTN (hypertension): Code(s): I10 - Essential (primary) hypertension Status: Chronic (2) Atrial fibrillation: Code(s): I48.91 - Unspecified atrial fibrillation Status: Acute (3) UTI (urinary tract infection): Qualifiers: Hematuria presence: without hematuria Urinary tract infection type: acute cystitis Qualified Code(s): N30.00 - Acute cystitis without hematuria Code(s): N39.0 - Urinary tract infection, site not specified Status: Acute (4) Hip fracture, intertrochanteric: Qualifiers: Encounter type: initial encounter Fracture alignment: displaced Fracture type: closed Laterality: left Qualified Code(s): S72.142A - Displaced intertrochanteric fracture of left femur, initial encounter for closed fracture Code(s): S72.143A - Displaced intertrochanteric fracture of unspecified femur, initial encounter for closed fracture Status: Acute (5) Fall: Qualifiers: Encounter type: initial encounter Qualified Code(s): W19.XXXA - Unspecified fall, initial encounter Code(s): W19.XXXA - Unspecified fall, initial encounter Status: Acute (6) Nodule of right lung: Code(s): R91.1 - Solitary pulmonary nodule Status: Acute Plan (1) Hip fracture, intertrochanteric: ?Qualifiers: ?Encounter type:?initial encounter??Fracture alignment:?displaced??Fracture type:?closed??Laterality:?left? Qualified Code(s):?S72.142A - Displaced intertrochanteric fracture of left femur, initial encounter for closed fracture ?Code(s): S72.143A - Displaced intertrochanteric fracture of unspecified femur, initial encounter for closed fracture ?Status:?Acute ?Assessment and Plan: - XR hip/pelvis: acute, mildly displaced, comminuted intertrochanteric fracture of the proximal left femur. - bedrest - neurovasc checks - see order for intervals - SCDs - urinary catheter - heart healthy diet, NPO at midnight - pain management: Tyl, morphine, norco, and narcan PRN - zofran PRN for nausea - monitor labs in AM - CBC and BMP - bowel regimen: docusate/senna. continue home miralax. - maintenance fluids: LR 100 mL/hr - continue ASA Appreciate orthopedic surgeon consultation, s/p Left?intertrochanteric fracture of the proximal left femur with plan for?left hip reduction with intramedullary hip screw, performed on 11/03 Consult PT OT, wound care nurse for evaluation and assisting placement (2) UTI (urinary tract infection): ?Code(s): N39.0 - Urinary tract infection, site not specified ?Status:?Acute ?Assessment and Plan: - UA:? Cloudy, 1+ protein, positive nitrates, 2.0 uro bili gin, 2+ leuk esterase, 51-100 WBC, few epithelial cells, 3+ bacteria, 3-5 casts - UC ESBL, susceptible to meropenem On ceftriaxone 1G Q24H started on 11/02/23, discontinue ceftriaxone and switched to meropenem for 5 days - mijares in place (3) Atrial fibrillation: ?Code(s): I48.91 - Unspecified atrial fibrillation ?Status:?Acute ?Assessment and Plan: - EKG: AFib RVR with rate of 103, torres, nonspecific ST and T-wave abnormality, when compared to EKG in June of 2023 T-wave abnormality now present. - not currently on medications - HR 112, remains irregular on exam. Trial 5 mg IVP, may repeat if HR does not improve. - tele monitoring 11/07 heart rate is not well control, increased Toprol 25 mg q.8 hours p.o. 4. Acute exacerbation of chronic encephalopathy; likely delirium superimposed on dementia 11/05/23: Falls, safety precautions Hypokalemia. Will replete and monitor 11/07, K2.8 replete with KCl 40 mEq IV once and 40 mg b.i.d. p.o. Home Meds/Chronic Conditions - dementia: continue Namenda - HLD: continue home statin Diet: heart healthy GI Prophylaxis: pantoprazole 40 IVP daily DVT Prophylaxis: SCDs, hold pharm - planned surgical managment Lines: pIV Code Status: DNR Dispositions. Awaiti
[2023-11-07 08:38] LABS: Magnesium 2.3 mg/dL (1.6-2.3); Phosphorus 2.2 mg/dL (2.5-4.5)
[2023-11-07] MEDS: PRAVASTATIN SODIUM 20 MG TABLET PO (08:39)
[2023-11-07] MEDS: MEMANTINE 10 MG TABLET PO (08:39)
[2023-11-07] MEDS: ASPIRIN 81 MG ENTERIC TABLET PO (08:39)
[2023-11-07] MEDS: SENNA/DOCUSATE SODIUM TABLET 2 TAB PO ×2 (08:39→16:50)
[2023-11-07] MEDS: FONDAPARINUX SODIUM 2.5 MG/0.5 ML SYRINGE SUB-Q (08:40)
[2023-11-07] MEDS: polyethylene glycoL 3350 17 GM POWD.PACK PO (08:41)
[2023-11-07] MEDS: POTASSIUM CHLORIDE 20 MEQ PACKET (FOR LIQUID) 40 MEQ PO ×2 (08:43→16:50)
[2023-11-07] MEDS: ONDANSETRON INJ 4 MG/2 ML VIAL IV PUSH (08:44)
[2023-11-07] MEDS: PANTOPRAZOLE SODIUM IV 40 MG VIAL IV PUSH (09:50)
[2023-11-07] MEDS: ACETAMINOPHEN 325 MG TABLET 650 MG PO (12:39)
--- NOTE | 2023-11-07 13:16 | PM.CNCAR ---
Assessment and Plan Assessment and plan (1) Atrial fibrillation: Code(s): I48.91 - Unspecified atrial fibrillation Status: Acute Assessment and Plan: Chronic atrial fibrillation not on any rate controlling medications or anticoagulation. Now has RVR in the setting of recent hip surgery, hypokalemia, and UTI. Will attempt rate control with metoprolol 25mg q8h p.r.n. lopressor 5mg IV Because of her mental status and risk for falling she is not a good candidate for anticoagulation K+ 2.9 this morning and has been repleted. Check BMP in a.m. Continue telemetry (2) HTN (hypertension): Code(s): I10 - Essential (primary) hypertension Status: Chronic Assessment and Plan: Blood pressure is generally at goal. Monitor closely with addition of metoprolol. (3) Hip fracture, intertrochanteric: Qualifiers: Encounter type: initial encounter Fracture alignment: displaced Fracture type: closed Laterality: left Qualified Code(s): S72.142A - Displaced intertrochanteric fracture of left femur, initial encounter for closed fracture Code(s): S72.143A - Displaced intertrochanteric fracture of unspecified femur, initial encounter for closed fracture Status: Acute Assessment and Plan: Now status post repair with left intertrochanteric screw. Ortho following. History of Present Illness History of Present Illness Consult date/time: 11/07/23 13:16 Requesting physician: Javon Montes MD Consult reason: atrial fibrillation Reason For Visit: hip fracture,uti Narrative: Valentina Machado is an 88 year old female with dementia and atrial fibrillation hospitalized with hip pain after sustaining two ground level falls. She was found to have a left hip intertrochanteric fracture and is now status post surgical repair of this. From what I can gather from her chart she has chronic atrial fibrillation and is not on any rate controlling medications or anticoagulation presumably because of frequent falls. She has become increasingly tachycardic following her surgery. This afternoon her heart rate is intermittently in the 150-160 bpm range. She denies any palpitations, chest pain, or shortness of breath. She appears comfortable and does not verbalize any complaints. Because of her advanced dementia she is minimally communicative/interactive, therefore her history has been obtained from the medical record. Review of Systems Review of Systems: ROS unobtainable: Yes unobtainable due to mental status [facility] Past Medical History Medical History Atrial fibrillation Dementia Depression TASHIA (generalized anxiety disorder) HLD (hyperlipidemia) HTN (hypertension) Osteopenia Total retinal detachment, left eye Vitamin D deficiency Surgical History Surgical History Surgical history unknown Family History Family History Father Family history of malignant neoplasm Mother Family history of coronary artery disease Social History Social History Smoking status: Never smoker Second hand tobacco smoke exposure: No Alcohol intake: never Substance use: never Substance use type: does not use Lack of Transportation: No Lack of Food: Never True Current Housing: I Have Housing Concerned About Future Housing: No Difficulty Paying Gas/Electric Bills: No Difficulty Paying for Meds: No Currently Unemployed: No Education: Decline to Answer Difficulty w/ Childcare or Family Care: No Living arrangements: with family Occupation/Education: retired Gender identity (if verbalized by the patient): Female Spiritual care concerns: No Meds Home Medications and Allergies Home Medications Medication Instructions Recorded Confirmed Type asp
[2023-11-07] MEDS: METOPROLOL TARTRATE 25 MG TABLET PO ×2 (13:36→21:02)
--- NOTE | 2023-11-07 13:50 | PCPTNOTE ---
The patient treatment was not able to be completed due to patient's HR in the 130's and 140's at rest. Will plan to continue treatment per plan of care.
[2023-11-07] MEDS: MEROPENEM 1 GM/NS 100 ML 1 GM/100 ML BAG IVPB ×2 (16:47→21:02)
[2023-11-07] MEDS: TOLNAFTATE 1% POWDER 45 GM BTL 1 APPLIC TOPICAL (21:02)
[2023-11-08] VITALS (14 sets, daily range): BP systolic 124–138; BP diastolic 67–83; PULSE 72–109; RESP 16–18; TEMP 36.3–36.8; O2SAT 91–98
[2023-11-08] MEDS: SODIUM CHLORIDE 0.9% IV 1,000 ML 70 ML IV CONT ×2 (04:11→17:03)
[2023-11-08] MEDS: METOPROLOL TARTRATE 25 MG TABLET PO ×3 (05:56→20:59)
[2023-11-08] MEDS: MEROPENEM 1 GM/NS 100 ML 1 GM/100 ML BAG IVPB ×3 (05:57→20:55)
[2023-11-08 07:15] LABS: Basophils Absolute Auto 0.1 K/mm3 (0.0-0.1); Basophils Percent Auto 0.8 % (0.2-1.2); Eosinophils Absolute Auto 0.2 K/mm3 (0-0.3); Eosinophils Percent Auto 2.7 % (0-4.4); Hematocrit 35.1 % (37.0-47.0); Immature Granulocyte Absolute 0.19 K/mm3 (0.00-0.031); Immature Granulocyte Percent A 2.1 % (0-0.5); Immature Platelet Fraction Pct 5.8 % (0.9-11.2); Lymphocytes Absolute Auto 0.97 K/mm3 (0.9-3.2); Lymphocytes Percent Auto 10.9 % (18.3-44.2); Mean Corpuscular HGB Conc 31.3 g/dl (32-36); Mean Corpuscular Volume 92.6 fl (80-100); Mean Platelet Volume 11.1 fl (7.4-10.4); Monocytes Absolute Auto 0.6 K/mm3 (0.1-0.6); Monocytes Percent Auto 6.6 % (2.6-8.5); Neutrophils Absolute Auto 6.9 K/mm3 (1.3-6.7); Neutrophils Percent Auto 76.9 % (45.5-73.1); Platelet Count Result 241 k/mm3 (150-375); Red Blood Count 3.79 M/mm3 (4.2-5.4); Red Cell Distribution Width 14.1 % (11.5-14.5); White Blood Count 8.9 K/mm3 (4.5-10.0)
--- NOTE | 2023-11-08 08:04 | PM.IMPN ---
Progress Note: A&P Assessment and Plan (1) HTN (hypertension): Code(s): I10 - Essential (primary) hypertension Status: Chronic (2) Atrial fibrillation: Code(s): I48.91 - Unspecified atrial fibrillation Status: Acute (3) UTI (urinary tract infection): Qualifiers: Hematuria presence: without hematuria Urinary tract infection type: acute cystitis Qualified Code(s): N30.00 - Acute cystitis without hematuria Code(s): N39.0 - Urinary tract infection, site not specified Status: Acute (4) Hip fracture, intertrochanteric: Qualifiers: Encounter type: initial encounter Fracture alignment: displaced Fracture type: closed Laterality: left Qualified Code(s): S72.142A - Displaced intertrochanteric fracture of left femur, initial encounter for closed fracture Code(s): S72.143A - Displaced intertrochanteric fracture of unspecified femur, initial encounter for closed fracture Status: Acute (5) Fall: Qualifiers: Encounter type: initial encounter Qualified Code(s): W19.XXXA - Unspecified fall, initial encounter Code(s): W19.XXXA - Unspecified fall, initial encounter Status: Acute (6) Nodule of right lung: Code(s): R91.1 - Solitary pulmonary nodule Status: Acute Plan (1) Hip fracture, intertrochanteric: ?Qualifiers: ?Encounter type:?initial encounter??Fracture alignment:?displaced??Fracture type:?closed??Laterality:?left? Qualified Code(s):?S72.142A - Displaced intertrochanteric fracture of left femur, initial encounter for closed fracture ?Code(s): S72.143A - Displaced intertrochanteric fracture of unspecified femur, initial encounter for closed fracture ?Status:?Acute ?Assessment and Plan: - XR hip/pelvis: acute, mildly displaced, comminuted intertrochanteric fracture of the proximal left femur. - bedrest - neurovasc checks - see order for intervals - SCDs - urinary catheter - heart healthy diet, NPO at midnight - pain management: Tyl, morphine, norco, and narcan PRN - zofran PRN for nausea - monitor labs in AM - CBC and BMP - bowel regimen: docusate/senna. continue home miralax. - maintenance fluids: LR 100 mL/hr - continue ASA Appreciate orthopedic surgeon consultation, s/p Left?intertrochanteric fracture of the proximal left femur with plan for?left hip reduction with intramedullary hip screw, performed on 11/03 Consult PT OT, acute care certified nursing assistant for evaluation and assisting placement (2) UTI (urinary tract infection): ?Code(s): N39.0 - Urinary tract infection, site not specified ?Status:?Acute ?Assessment and Plan: - UA:? Cloudy, 1+ protein, positive nitrates, 2.0 uro bili gin, 2+ leuk esterase, 51-100 WBC, few epithelial cells, 3+ bacteria, 3-5 casts - UC ESBL, susceptible to meropenem On ceftriaxone 1G Q24H started on 11/02/23, discontinue ceftriaxone and switched to meropenem 11/07 - mijares in place 11/08 will change to Macrobid p.o. on discharge for 5 more days (3) Atrial fibrillation: ?Code(s): I48.91 - Unspecified atrial fibrillation ?Status:?Acute ?Assessment and Plan: - EKG: AFib RVR with rate of 103, torres, nonspecific ST and T-wave abnormality, when compared to EKG in June of 2023 T-wave abnormality now present. - not currently on medications - HR 112, remains irregular on exam. Trial 5 mg IVP, may repeat if HR does not improve. - tele monitoring 11/07 heart rate is not well control, increased Toprol 25 mg q.8 hours p.o. 11/08: Heart rate is controlled,pt is on Toprol 25 mg q.8 hours p.o. change to metoprolol succinate 75 mg daily p.o. on discharge 4. Acute exacerbation of chronic encephalopathy; likely delirium superimposed on dementia 11/05/23: Falls, safety precautions Resolved Hypokalemia. Will replete and monitor 11/07, K2.8 replete with KCl 40 mEq IV once and 40 mg b.i.d. p.o. Corrected, potassium 4.0 today Home Meds/Chronic Conditions - lexy
[2023-11-08 08:51] LABS: Alanine Aminotransferase 27 U/L (6-35); Albumin Level 2.7 g/dL (3.5-5.1); Alkaline Phosphatase 82 U/L (38-126); Anion Gap 7 mmol/L (8-16); Aspartate Amino Transferase 43 U/L (14-36); Bilirubin,Total 1.3 mg/dL (0.2-1.3); Blood Urea Nitrogen 16 mg/dL (7-17); Calcium 7.8 mg/dL (8.4-10.2); Carbon Dioxide 19 mmol/L (22-30); Chloride 111 mmol/L (98-107); Estimated CRCL calculation 51 ml/min; Estimated Glomerular Filt Rate > 60; Glucose 83 mg/dL (65-110); Phosphorus 2.3 mg/dL (2.5-4.5); Sodium 137 mmol/L (137-145)
--- NOTE | 2023-11-08 09:07 | PCOTNOTE ---
The patient treatment was not able to be completed Patient was having difficulty waking up and blood sugar is 65. Will plan to continue treatment per plan of care.
[2023-11-08 09:10] LABS: Glucose Point of Care 65 mg/dl (65-105)
--- NOTE | 2023-11-08 09:28 | PM.PNORT ---
Progress Note: A&P Assessment and Plan (1) Hip fracture, intertrochanteric: Qualifiers: Encounter type: initial encounter Fracture alignment: displaced Fracture type: closed Laterality: left Qualified Code(s): S72.142A - Displaced intertrochanteric fracture of left femur, initial encounter for closed fracture Code(s): S72.143A - Displaced intertrochanteric fracture of unspecified femur, initial encounter for closed fracture Status: Acute Assessment and Plan: POD #5 : Intramedullary hip screw of left intertrochanteric fracture Continue PT/OT when possible WBAT. Walker. HIGH FALL RISK. Continue pain control. Ice hip. Protect skin. DVT prophylaxis with Arixtra- may switch to aspirin at discharge. SCDs. Incentive Spirometry Use- needs reinforcement. Monitor Dressing. Change daily and as needed. Bowel Regimen. Dispo: SNF pending progress with PT/OT and medical stability Subjective Subjective Date/Time Seen: 11/08/23 09:28 Post Op day: 5 Principal diagnosis: LT hip IT fx Interval history: Comfortable in bed. No overnight issues identified. Oriented to self. Exam Const: General: comfortable Resp: Other: on NC O2 Extrem: Left lower extremity: hip/thigh Details: tenderness Location: of the hip Location: laterally, swelling and abnormal ROM (limited due to recent surgery ); no ecchymosis and no crepitus, ankle Details: normal ROM and foot (moves toes, sensation intact. ) Details: normal capillary refill and vascular exam Details: dorsalis pedis pulse present Objective Data Vital Signs Vital Signs: Vital Signs - 24 hr 11/07/23 12:00 11/07/23 13:36 11/07/23 14:00 Temperature 96.3 F L Pulse Rate 120 H 140 H 145 H Respiratory Rate 20 Blood Pressure 114/83 Pulse Oximetry 95 Oxygen Delivery 11/07/23 16:00 11/07/23 20:50 11/07/23 21:02 Temperature 98.5 F Pulse Rate 94 57 L 92 Respiratory Rate 17 Blood Pressure 124/69 Pulse Oximetry 90 Oxygen Delivery 11/07/23 20:10 11/07/23 20:00 11/08/23 00:00 Temperature Pulse Rate 93 72 Respiratory Rate Blood Pressure Pulse Oximetry Oxygen Delivery Room Air 11/08/23 04:00 11/08/23 05:43 11/08/23 05:56 Temperature 98.2 F Pulse Rate 76 92 84 Respiratory Rate 16 Blood Pressure 125/67 Pulse Oximetry 94 Oxygen Delivery 11/08/23 08:32 Temperature Pulse Rate Respiratory Rate Blood Pressure Pulse Oximetry 91 Oxygen Delivery Room Air Intake/Output Intake/Output: Intake & Output 11/05/23 11/06/23 11/07/23 11/08/23 23:59 23:59 23:59 23:59 Intake Total 150 1430 2890 100 Output Total 1100 1325 0 Balance -197 848 5173 100 Meds/Results Medications: Active Medications Generic Name Dose Route Start Last Admin Trade Name Freq PRN Reason Stop Dose Admin Acetaminophen 650 mg 11/02/23 09:11 11/07/23 12:39 Acetaminophen 325 Mg Tablet PO 650 mg Q4H PRN Administration Mild Pain (1-3) or Fever Hydrocodone Bitart/Acetaminophen 1 tab 11/02/23 09:11 Hydrocodone/Acetaminophen (*Crx) 5-325 Mg Tablet PO Q4H PRN Pain Rated 4-6 Aspirin 81 mg 11/04/23 09:00 11/07/23 08:39 Aspirin 81 Mg Enteric Tablet PO 81 mg DAILY BINDU Administration Fondaparinux 2.5 mg 11/04/23 09:00 11/07/23 08:40 Fondaparinux Sodium 2.5 Mg/0.5 Ml Syringe SUB-Q 2.5 mg DAILY BINDU Administration Sodium Chloride 1,000 mls @ 70 mls/hr 11/03/23 16:28 11/08/23 04:11 Normal Saline Iv IV CONT 70 mls/hr .[id number] BINDU Administration Meropenem 1 gm in 100 mls @ 200 mls/hr 11/07/23 16:00 11/08/23 06:27 IVPB 11/12/23 06:29 Infused Q8HR BINDU Infusion Memantine 10 mg 11/03/23 09:00 11/07/23 08:39 Memantine 10 Mg Tablet PO 10 mg DAILY BINDU Administration Metoprolol Tartrate 25 mg 11/07/23 14:00 11/08/23 05:56 Metoprolol Tartrate 25 Mg Tablet PO 25 mg Q8H BINDU Administration Metoprolol Tartrate 5 mg 11/07/23 1
--- NOTE | 2023-11-08 09:40 | PM.PNCARD ---
Progress Note: A&P Assessment and Plan (1) Atrial fibrillation: Code(s): I48.91 - Unspecified atrial fibrillation Status: Acute Assessment and Plan: Chronic atrial fibrillation not on any rate controlling medications or anticoagulation. Now has RVR in the setting of recent hip surgery, hypokalemia, and UTI. Rate well controlled with metoprolol Will shift to Toprol XL starting tomorrow a.m. Because of her mental status and risk for falling she is not a good candidate for anticoagulation K+ this morning 4.0. Cardiology will sign off please call with any questions (2) HTN (hypertension): Code(s): I10 - Essential (primary) hypertension Status: Chronic Assessment and Plan: Blood pressure is generally at goal. Monitor closely with addition of metoprolol. (3) Hip fracture, intertrochanteric: Qualifiers: Encounter type: initial encounter Fracture alignment: displaced Fracture type: closed Laterality: left Qualified Code(s): S72.142A - Displaced intertrochanteric fracture of left femur, initial encounter for closed fracture Code(s): S72.143A - Displaced intertrochanteric fracture of unspecified femur, initial encounter for closed fracture Status: Acute Assessment and Plan: Now status post repair with left intertrochanteric screw. Ortho following. Subjective Date/time seen: 11/08/23 09:40 Interval history: Cardiology follow up for atrial fibrillation Her rate has been well controlled since starting metoprolol yesterday. No bradycardia. BP is stable. Review of Systems Review of Systems: ROS unobtainable: Yes unobtainable due to mental status Exam Const: General: comfortable, no acute distress, alert and awake Orientation/consciousness: No patient oriented x3 HENMT: Head: normal to inspection Eyes: General: appearance normal, both eyes and all related structures Pupils: Equal, round and reactive pupils present Neck: Neck: normal visual inspection, supple and no JVD Carotids: normal carotid upstroke Resp: Effort & Inspection: normal respiratory effort Auscultation: clear to auscultation bilaterally Cardio: Rate: regular rate and tachycardic Rhythm: abnormal rhythm irregularly irregular Heart sounds: S1 normal heart sound present, S2 normal heart sound present and no murmurs GI: Auscultation: normal bowel sounds Skin: General skin exam: normal color Neuro: General: No patient oriented x3 Cranial nerves: Yes Equal, round and reactive pupils present Extrem: General: normal to inspection Other: no edema Psych: Appearance: grossly normal Mental Status: mental status grossly abnormal Objective Data Vital Signs Vital Signs: Vital Signs - 24 hr 11/07/23 12:00 11/07/23 13:36 11/07/23 14:00 Temperature 35.7 C L Pulse Rate 120 H 140 H 145 H Respiratory Rate 20 Blood Pressure 114/83 Pulse Oximetry 95 Oxygen Delivery 11/07/23 16:00 11/07/23 20:50 11/07/23 21:02 Temperature 36.9 C Pulse Rate 94 57 L 92 Respiratory Rate 17 Blood Pressure 124/69 Pulse Oximetry 90 Oxygen Delivery 11/07/23 20:10 11/07/23 20:00 11/08/23 00:00 Temperature Pulse Rate 93 72 Respiratory Rate Blood Pressure Pulse Oximetry Oxygen Delivery Room Air 11/08/23 04:00 11/08/23 05:43 11/08/23 05:56 Temperature 36.8 C Pulse Rate 76 92 84 Respiratory Rate 16 Blood Pressure 125/67 Pulse Oximetry 94 Oxygen Delivery 11/08/23 08:32 Temperature Pulse Rate Respiratory Rate Blood Pressure Pulse Oximetry 91 Oxygen Delivery Room Air Intake/Output Intake/Output: Intake & Output 11/05/23 11/06/23 11/07/23 11/08/23 23:59 23:59 23:59 23:59 Intake Total 150 1430 2890 100 Output Total 1100 1325 0 Balance -546 705 3889 100 Meds/Results Medications: Active Medications Generic Name Dose Route Start Last Admin Trade Name Freq PRN Reason Stop Dose Admin Acetaminophen
[2023-11-08] MEDS: FONDAPARINUX SODIUM 2.5 MG/0.5 ML SYRINGE SUB-Q (09:57)
[2023-11-08] MEDS: ASPIRIN 81 MG ENTERIC TABLET PO (09:57)
--- NOTE | 2023-11-08 09:57 | PCPTNOTE ---
Attempted 2x this A.M. to see patient, however patient did not arouse to participate. Vital signs stable and RN aware. PT will continue to follow.
[2023-11-08] MEDS: TOLNAFTATE 1% POWDER 45 GM BTL 1 APPLIC TOPICAL ×2 (09:58→20:55)
[2023-11-08] MEDS: MEMANTINE 10 MG TABLET PO (09:58)
[2023-11-08] MEDS: PANTOPRAZOLE SODIUM IV 40 MG VIAL IV PUSH (09:58)
[2023-11-08] MEDS: PRAVASTATIN SODIUM 20 MG TABLET PO (09:58)
[2023-11-08] MEDS: SENNA/DOCUSATE SODIUM TABLET 2 TAB PO ×2 (09:58→17:03)
--- NOTE | 2023-11-08 10:39 | PM.DS ---
DS: Admitting Diagnosis Discharge Date 11/08/23 Admitting Diagnosis (1) HTN (hypertension): ?Code(s): I10 - Essential (primary) hypertension ?Status:?Chronic (2) Atrial fibrillation: ?Code(s): I48.91 - Unspecified atrial fibrillation ?Status:?Acute (3) UTI (urinary tract infection): ?Qualifiers: ?Hematuria presence:?without hematuria??Urinary tract infection type:?acute cystitis? Qualified Code(s):?N30.00 - Acute cystitis without hematuria ?Code(s): N39.0 - Urinary tract infection, site not specified ?Status:?Acute (4) Hip fracture, intertrochanteric: ?Qualifiers: ?Encounter type:?initial encounter??Fracture alignment:?displaced??Fracture type:?closed??Laterality:?left? Qualified Code(s):?S72.142A - Displaced intertrochanteric fracture of left femur, initial encounter for closed fracture ?Code(s): S72.143A - Displaced intertrochanteric fracture of unspecified femur, initial encounter for closed fracture ?Status:?Acute (5) Fall: ?Qualifiers: ?Encounter type:?initial encounter? Qualified Code(s):?W19.XXXA - Unspecified fall, initial encounter ?Code(s): W19.XXXA - Unspecified fall, initial encounter ?Status:?Acute (6) Nodule of right lung: ?Code(s): R91.1 - Solitary pulmonary nodule ?Status:?Acute DS: Discharge Diagnosis Discharge Diagnosis (1) HTN (hypertension): Code(s): I10 - Essential (primary) hypertension Status: Chronic (2) Atrial fibrillation: Code(s): I48.91 - Unspecified atrial fibrillation Status: Acute (3) UTI (urinary tract infection): Qualifiers: Urinary tract infection type: acute cystitis Hematuria presence: without hematuria Qualified Code(s): N30.00 - Acute cystitis without hematuria Code(s): N39.0 - Urinary tract infection, site not specified Status: Acute (4) Hip fracture, intertrochanteric: Qualifiers: Encounter type: initial encounter Fracture alignment: displaced Fracture type: closed Laterality: left Qualified Code(s): S72.142A - Displaced intertrochanteric fracture of left femur, initial encounter for closed fracture Code(s): S72.143A - Displaced intertrochanteric fracture of unspecified femur, initial encounter for closed fracture Status: Acute (5) Fall: Qualifiers: Encounter type: initial encounter Qualified Code(s): W19.XXXA - Unspecified fall, initial encounter Code(s): W19.XXXA - Unspecified fall, initial encounter Status: Acute (6) Nodule of right lung: Code(s): R91.1 - Solitary pulmonary nodule Status: Acute DS: Summary Hospital Course Hospital Course: 88 y/o F presents here for evaluation of hip pain post-fall with PMH of AFib (not on anticoagulation), depression, HTN, dementia, osteoarthritis, osteopenia, and total retinal detachment (L eye). Patient presented here via EMS from [facility] for evaluation of left hip pain. Patient sustained 2 ground level falls. First fall was 2 days ago with a unwitnessed fall out of bed. Second was yesterday while patient was ambulating with a up toe walk . Patient complained of worsening left hip and left leg pain. Underwent XR of hip and results were given to NH this morning which showed a fracture. Patient has history of dementia with baseline orientation of A/Ox1. Remains minimally interactive, HPI obtained through chart review and provider report.Initial VS at presentation:? 98.3 F, half HR 111, RR 28, and 140/73, 99% on RA.ED workup showed mild leukocytosis with WBC of 13.0, mild anemia at 11.5, creatinine 0.50, potassium 3.1, and UA suspicious for UTI.? XR of the hip and pelvis showed acute mildly displaced comminuted intertrochanteric fracture proximal left femur. EKG showed AFib with rate of 103. The following med issues have been addressed during hospitalization (1) Hip fracture, intertrochanteric: ?Qualifiers: ?Encoun
--- NOTE | 2023-11-08 10:43 | PC.NURSE ---
Upon med pass this morning this RN was unable to administer PO Potassium due to impaired swallowing abilities. This RN contacted Dr. Anaya and notified him that the patient swallowed po medications crushed in applesauce but was unable to drink liquid potassium without coughing and risk for aspiration. MD stated it is fine to hold liquid medications at this time This RN asked MD if a swallow study is needed prior to discharge. MD stated he will order outpatient swallow study.
--- NOTE | 2023-11-08 10:46 | PCNFU ---
Nutrition Follow-Up Complete: Inadequate energy intake related to NPO status as evidenced by current diet orders Goal:PO intake greater than 50% of meals and supplements Pt current nutrition is heart healthy, Ensure compact BID. Nutrition recommendation: Add nutrition ice cream cups BID Last recorded weight is 48.3 kg. Bowel Motility: +BM 11/07 Labs Reviewed: Hgb:11, HCT:35.1, Alb:2.7, Cr:0.5 Meds Noted: zofran, protonix Skin: no skin breakdown noted Additional Notes: Pt on a heart healthy diet, minimal intake per nursing, is fed by staff and only takes a few bites. Also noted issues with swallowing, nursing recommending a swallow study. 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 Monitor intake, wt, labs. Follow up in 3 days.
[2023-11-08] MEDS: HYDROcodone/acetaminophen (*CRX) 5-325 MG TABLET 1 TAB PO (14:34)
[2023-11-08] MEDS: POTASSIUM CHLORIDE 20 MEQ PACKET (FOR LIQUID) 40 MEQ PO (17:03)
[2023-11-09] VITALS: PULSE 92
[2023-11-09] MEDS: HYDROcodone/acetaminophen (*CRX) 5-325 MG TABLET 1 TAB PO (03:08)
[2023-11-09 04:00] VITALS: PULSE 111
[2023-11-09] MEDS: SODIUM CHLORIDE 0.9% IV 1,000 ML 70 ML IV CONT (05:04)
[2023-11-09] MEDS: MEROPENEM 1 GM/NS 100 ML 1 GM/100 ML BAG IVPB (05:04)
[2023-11-09 05:43] LABS: Basophils Absolute Auto 0.1 K/mm3 (0.0-0.1); Basophils Percent Auto 1.4 % (0.2-1.2); Eosinophils Absolute Auto 0.1 K/mm3 (0-0.3); Eosinophils Percent Auto 1.7 % (0-4.4); Hematocrit 38.2 % (37.0-47.0); Hemoglobin 11.1 g/dL (12.0-15.0); Immature Granulocyte Percent A 6.2 % (0-0.5); Lymphocytes Absolute Auto 0.41 K/mm3 (0.9-3.2); Lymphocytes Percent Auto 5.1 % (18.3-44.2); Mean Corpuscular HGB Conc 29.1 g/dl (32-36); Mean Corpuscular Hemoglobin 29.2 pg (26-34); Mean Corpuscular Volume 100.5 fl (80-100); Mean Platelet Volume 10.1 fl (7.4-10.4); Monocytes Absolute Auto 0.3 K/mm3 (0.1-0.6); Monocytes Percent Auto 3.7 % (2.6-8.5); Neutrophils Absolute Auto 6.6 K/mm3 (1.3-6.7); Neutrophils Percent Auto 81.9 % (45.5-73.1); Platelet Count Result 182 k/mm3 (150-375); Red Cell Distribution Width 14.3 % (11.5-14.5); White Blood Count 8.1 K/mm3 (4.5-10.0)
[2023-11-09 05:59] LABS: Alanine Aminotransferase 24 U/L (6-35); Albumin Level 2.8 g/dL (3.5-5.1); Alkaline Phosphatase 77 U/L (38-126); Anion Gap 8 mmol/L (8-16); Aspartate Amino Transferase 40 U/L (14-36); Bilirubin,Total 1.5 mg/dL (0.2-1.3); Blood Urea Nitrogen 13 mg/dL (7-17); Calcium 7.8 mg/dL (8.4-10.2); Carbon Dioxide 20 mmol/L (22-30); Chloride 108 mmol/L (98-107); Estimated CRCL calculation 62 ml/min; Estimated Glomerular Filt Rate > 60; Glucose 115 mg/dL (65-110); Magnesium 1.9 mg/dL (1.6-2.3); Phosphorus 2.1 mg/dL (2.5-4.5); Potassium 4.4 mmol/L (3.4-5.0); Sodium 136 mmol/L (137-145)
[2023-11-09 06:00] VITALS: BP 125/75; PULSE 94; RESP 18; O2SAT 97
[2023-11-09 07:29] LABS: Anisocytosis 1+ (NORMAL); Burr Cells 1+ (NORMAL); Hypochromasia 1+ (NORMAL); Platelet Estimate Adequate (Adequate); Schistocytes Rare (NORMAL)
[2023-11-09 08:56] VITALS: PULSE 103
[2023-11-09] MEDS: PRAVASTATIN SODIUM 20 MG TABLET PO (08:56)
[2023-11-09] MEDS: SENNA/DOCUSATE SODIUM TABLET 2 TAB PO (08:56)
[2023-11-09] MEDS: METOPROLOL SUCCINATE EXT REL 25 MG, METOPROLOL SUCCINATE EXT REL 50 MG 75 MG PO (08:56)
[2023-11-09] MEDS: ASPIRIN 81 MG ENTERIC TABLET PO (08:56)
[2023-11-09] MEDS: MEMANTINE 10 MG TABLET PO (08:56)
[2023-11-09] MEDS: FONDAPARINUX SODIUM 2.5 MG/0.5 ML SYRINGE SUB-Q (08:57)
[2023-11-09] MEDS: PANTOPRAZOLE SODIUM IV 40 MG VIAL IV PUSH (08:57)
[2023-11-09] MEDS: POTASSIUM CHLORIDE 20 MEQ PACKET (FOR LIQUID) 40 MEQ PO (08:57)
--- NOTE | 2023-11-09 09:27 | P.PNIM_ITS ---
Progress Note: A&P Assessment and Plan (1) HTN (hypertension): Code(s): I10 - Essential (primary) hypertension Status: Chronic (2) Atrial fibrillation: Code(s): I48.91 - Unspecified atrial fibrillation Status: Acute (3) UTI (urinary tract infection): Qualifiers: Hematuria presence: without hematuria Urinary tract infection type: acute cystitis Qualified Code(s): N30.00 - Acute cystitis without hematuria Code(s): N39.0 - Urinary tract infection, site not specified Status: Acute (4) Hip fracture, intertrochanteric: Qualifiers: Encounter type: initial encounter Fracture alignment: displaced Fracture type: closed Laterality: left Qualified Code(s): S72.142A - Displaced intertrochanteric fracture of left femur, initial encounter for closed fracture Code(s): S72.143A - Displaced intertrochanteric fracture of unspecified femur, initial encounter for closed fracture Status: Acute (5) Fall: Qualifiers: Encounter type: initial encounter Qualified Code(s): W19.XXXA - Unspecified fall, initial encounter Code(s): W19.XXXA - Unspecified fall, initial encounter Status: Acute (6) Nodule of right lung: Code(s): R91.1 - Solitary pulmonary nodule Status: Acute Plan (1) Hip fracture, intertrochanteric: ?Qualifiers: ?Encounter type:?initial encounter??Fracture alignment:?displaced??Fracture type:?closed??Laterality:?left? Qualified Code(s):?S72.142A - Displaced intertrochanteric fracture of left femur, initial encounter for closed fracture ?Code(s): S72.143A - Displaced intertrochanteric fracture of unspecified femur, initial encounter for closed fracture ?Status:?Acute ?Assessment and Plan: - XR hip/pelvis: acute, mildly displaced, comminuted intertrochanteric fracture of the proximal left femur. - bedrest - neurovasc checks - see order for intervals - SCDs - urinary catheter - heart healthy diet, NPO at midnight - pain management: Tyl, morphine, norco, and narcan PRN - zofran PRN for nausea - monitor labs in AM - CBC and BMP - bowel regimen: docusate/senna. continue home miralax. - maintenance fluids: LR 100 mL/hr - continue ASA Appreciate orthopedic surgeon consultation, s/p Left?intertrochanteric fracture of the proximal left femur with plan for?left hip reduction with intramedullary hip screw, performed on 11/03 Consult PT OT, clinical care coordinator for evaluation and assisting placement (2) UTI (urinary tract infection): ?Code(s): N39.0 - Urinary tract infection, site not specified ?Status:?Acute ?Assessment and Plan: - UA:? Cloudy, 1+ protein, positive nitrates, 2.0 uro bili gin, 2+ leuk esterase, 51-100 WBC, few epithelial cells, 3+ bacteria, 3-5 casts - UC ESBL, susceptible to meropenem On ceftriaxone 1G Q24H started on 11/02/23, discontinue ceftriaxone and switched to meropenem 11/07 - mijares in place 11/08 will change to Macrobid p.o. on discharge for 5 more days (3) Atrial fibrillation: ?Code(s): I48.91 - Unspecified atrial fibrillation ?Status:?Acute ?Assessment and Plan: - EKG: AFib RVR with rate of 103, torres, nonspecific ST and T-wave abnormality, when compared to EKG in June of 2023 T-wave abnormality now present. - not currently on medications - HR 112, remains irregular on exam. Trial 5 mg IVP, may repeat if HR does not improve. - tele monitoring 11/07 heart rate is not well control, increased Toprol 25 mg q.8 hours p.o. 11/08: Heart rate is controlled,pt is on Toprol 25 mg
--- NOTE | 2023-11-09 09:28 | PM.DS ---
DS: Admitting Diagnosis Discharge Date 11/09/23 Admitting Diagnosis (1) HTN (hypertension): ?Code(s): I10 - Essential (primary) hypertension ?Status:?Chronic (2) Atrial fibrillation: ?Code(s): I48.91 - Unspecified atrial fibrillation ?Status:?Acute (3) UTI (urinary tract infection): ?Qualifiers: ?Hematuria presence:?without hematuria??Urinary tract infection type:?acute cystitis? Qualified Code(s):?N30.00 - Acute cystitis without hematuria ?Code(s): N39.0 - Urinary tract infection, site not specified ?Status:?Acute (4) Hip fracture, intertrochanteric: ?Qualifiers: ?Encounter type:?initial encounter??Fracture alignment:?displaced??Fracture type:?closed??Laterality:?left? Qualified Code(s):?S72.142A - Displaced intertrochanteric fracture of left femur, initial encounter for closed fracture ?Code(s): S72.143A - Displaced intertrochanteric fracture of unspecified femur, initial encounter for closed fracture ?Status:?Acute (5) Fall: ?Qualifiers: ?Encounter type:?initial encounter? Qualified Code(s):?W19.XXXA - Unspecified fall, initial encounter ?Code(s): W19.XXXA - Unspecified fall, initial encounter ?Status:?Acute (6) Nodule of right lung: ?Code(s): R91.1 - Solitary pulmonary nodule ?Status:?Acute DS: Discharge Diagnosis Discharge Diagnosis (1) HTN (hypertension): Code(s): I10 - Essential (primary) hypertension Status: Chronic (2) Atrial fibrillation: Code(s): I48.91 - Unspecified atrial fibrillation Status: Acute (3) UTI (urinary tract infection): Qualifiers: Hematuria presence: without hematuria Urinary tract infection type: acute cystitis Qualified Code(s): N30.00 - Acute cystitis without hematuria Code(s): N39.0 - Urinary tract infection, site not specified Status: Acute (4) Hip fracture, intertrochanteric: Qualifiers: Encounter type: initial encounter Fracture alignment: displaced Fracture type: closed Laterality: left Qualified Code(s): S72.142A - Displaced intertrochanteric fracture of left femur, initial encounter for closed fracture Code(s): S72.143A - Displaced intertrochanteric fracture of unspecified femur, initial encounter for closed fracture Status: Acute (5) Fall: Qualifiers: Encounter type: initial encounter Qualified Code(s): W19.XXXA - Unspecified fall, initial encounter Code(s): W19.XXXA - Unspecified fall, initial encounter Status: Acute (6) Nodule of right lung: Code(s): R91.1 - Solitary pulmonary nodule Status: Acute DS: Summary Hospital Course Hospital Course: 88 y/o F presents here for evaluation of hip pain post-fall with PMH of AFib (not on anticoagulation), depression, HTN, dementia, osteoarthritis, osteopenia, and total retinal detachment (L eye). Patient presented here via EMS from [facility] for evaluation of left hip pain. Patient sustained 2 ground level falls. First fall was 2 days ago with a unwitnessed fall out of bed. Second was yesterday while patient was ambulating with a up toe walk . Patient complained of worsening left hip and left leg pain. Underwent XR of hip and results were given to [facility] this morning which showed a fracture. Patient has history of dementia with baseline orientation of A/Ox1. Remains minimally interactive,ED workup showed mild leukocytosis with WBC of 13.0, mild anemia at 11.5, creatinine 0.50, potassium 3.1, and UA suspicious for UTI.? XR of the hip and pelvis showed acute mildly displaced comminuted intertrochanteric fracture proximal left femur. EKG showed AFib with rate of 103. the following med issues have been addressed during hospitalization (1) Hip fracture, intertrochanteric: ?Qualifiers: ?Encounter type:?initial encounter??Fracture alignment:?displaced??Fracture type:?closed??Laterality:?left? Qualified Code(s):?S72.142A - Displ
[2023-11-09 11:10] LABS: SARS-CoV-2 RNA PCR Negative (Negative)
--- NOTE | 2023-11-09 11:17 | P.CDI_ITS ---
CDI Query Clarification Request Documentation in the medical record indicates that this patient has a: BMI 17.7 The following is also documented in the medical record : Comprehensive Nutrition assessment : BMI 17.7 classification : Underweight Based on your medical judgement , can you further clarify in the progress notes the diagnosis associated with these findings such as: * Underweight * Cachexia * Emaciation * Malnutrition * Undernutrition * Anorexia * Other condition (please specify) * None of the above / Not applicable <Swathi Ta RN - Last Filed: 11/09/23 11:22> Clarified Diagnosis Clarified Diagnosis: Malnutrition <Trenton Anaya MD - Last Filed: 11/09/23 17:19>
[2023-11-09 12:00] VITALS: PULSE 84
== END 2023-11-09 13:45 | DRG 481 ==
LOC: ANHED 08:59 → ANH3MEDSUR 09:51
PROVIDERS: Emergency Medicine; Internal Medicine; Orthopaedic Surgery; Student in an Organized Health Care Education/Training Program; Admitting Provider Hospitalist; Emergency Provider Emergency Medicine; PCP Family Medicine; Visit Provider Hospitalist
PROC: 0QS736Z Reposition Left Upper Femur with Intramedullary Internal Fixation Device, Percutaneous Approach (ICD-10-PCS; CPT 27245; principal; 2023-11-03 14:30)
DX: S72.142A Displaced intertrochanteric fracture of left femur, initial encounter for closed fracture (principal); E46 Unspecified protein-calorie malnutrition; F05 Delirium due to known physiological condition; N39.0 Urinary tract infection, site not specified; Z68.1 Body mass index [BMI] 19.9 or less, adult; B96.20 Unspecified Escherichia coli [E. coli] as the cause of diseases classified elsewhere; W06.XXXA Fall from bed, initial encounter; F03.90 Unspecified dementia, unspecified severity, without behavioral disturbance, psychotic disturbance, mood disturbance, and anxiety; G32.89 Other specified degenerative disorders of nervous system in diseases classified elsewhere; E78.00 Pure hypercholesterolemia, unspecified; F32.9 Major depressive disorder, single episode, unspecified; I10 Essential (primary) hypertension; H33.052 Total retinal detachment, left eye; I48.91 Unspecified atrial fibrillation; R91.1 Solitary pulmonary nodule; M19.90 Unspecified osteoarthritis, unspecified site; E78.5 Hyperlipidemia, unspecified; Z11.52 Encounter for screening for COVID-19; Z66 Do not resuscitate; M85.80 Other specified disorders of bone density and structure, unspecified site; Z79.82 Long term (current) use of aspirin; E87.6 Hypokalemia; D64.9 Anemia, unspecified
CPT/HCPCS: 36415; 73502; 80048; 80053; 81001; 82948; 83735; 84100; 85025; 85027; 85055; 85610; 85730; 87086; 87186; 87635; 93005; 96361; 96365; 96375; 96376; 97110; 97161; 97165; 97530; 97535; 99199; 99285; A9270; C1713; C9113; G0378; J0690; J0696; J1100; J1652; J1885; J2185; J2270; J2359; J2405; J2704; J3010; J3480; J7030; J7040; J7120

== ENCOUNTER 2025-01-16 16:52 | Inpatient (IN) | payer OTHER, SELFPAY ==
--- NOTE | ~2025-01-16 | US_ITS ---
EXAMINATION: US renal BI DATE: 01/17/2025 08:56 INDICATION: Hematuria TECHNIQUE: Multiple ultrasound grayscale images of the kidneys were obtained. COMPARISON: None. FINDINGS: The right kidney measures 10.2 x 3.1 x 4.1 cm. The left kidney measures 9.2 x 3.7 x 4.0 cm. The kidne ys demonstrate normal echogenicity. 4.1 cm anechoic right renal cyst. There is no hydronephrosis in e ither kidney. No stones identified. The bladder is normal. IMPRESSION: 1. 4.0 cm right renal cyst. Otherwise normal kidneys without hydronephrosis. Reviewed, dictated and finalized at location B.
--- NOTE | ~2025-01-16 | CT_ITS ---
CT brain wo con Ordering provider: Bryan Patel MD History: 89 years Female with . Seizure . Comparison: July 08, 2023. Technique: CT of the head without contrast. Radiation reduction technique utilized.The dose-length pr oduct was 681.00 mGy-cm. FINDINGS: BRAIN PARENCHYMA AND CSF SPACES: Mild leukoaraiosis and diffuse cortical atrophy. Mild atheromatous d isease. No midline shift, mass effect or hemorrhage. The brain parenchyma and CSF spaces are otherwi se normal. VISUALIZED PARANASAL SINUSES: Right maxillary sinus disease. Right nasal septal deviation. Hyperdensity in the left eye globe with calcification unchanged from previous examination. MASTOIDS: Normal. BONES: Normal. Posterior arch of C1 is noted. SOFT TISSUES: Visualized nasopharynx is normal. Superficial soft tissues are normal. IMPRESSION: No acute intracranial findings. Reviewed, dictated and finalized at location A.
--- NOTE | ~2025-01-16 | XR_ITS ---
XR chest 1V portable Ordering provider: Bryan Patel MD History: 89 years Female with . Seizure . Comparison: August 11, 2021 FINDINGS: MEDIASTINUM: The cardiac silhouette is slightly enlarged. LUNGS: No infiltrates, effusions or pneumothorax. OTHER: No free air under the diaphragm. Dextroscoliosis with degenerative changes of the spine. Old h ealed fractures in the right hemithorax. IMPRESSION: No acute cardiopulmonary pathology. Reviewed, dictated and finalized at location A.
--- NOTE | ~2025-01-16 | MR_ITS ---
EXAMINATION: MR brain/brain stem wo/w con DATE: 01/17/2025 16:33 INDICATION: Seizure TECHNIQUE: Magnetic resonance imaging (MRI) of the brain and brainstem was performed without and with 15 mL Multihance intravenous contrast. Sequences included sagittal and axial T1-weighted SE, axial d iffusion-weighted FS SE, axial T2*-weighted GRE, axial T2-weighted FLAIR, and axial T2-weighted FSE. Postcontrast axial and coronal T1-weighted SE was obtained. Apparent diffusion coefficient (ADC) maps were created. COMPARISON: Head CT dated 01/16/2025 FINDINGS: There are no areas of restricted diffusion to suggest acute infarction. Couple small old infarcts at the right cerebellar hemisphere. No intracranial hemorrhage or abnormal intracranial mass lesion. The re are scattered areas of nonspecific increased T2-weighted signal intensity in the cerebral white ma tter, predominantly involving the deep and periventricular white matter. There are no intraparenchyma l signal abnormalities seen on the other pulse sequences. Symmetric prominence of the sulci and ventr icles consistent with moderate age-appropriate diffuse cerebral volume loss. There are no abnormal ex tra-axial fluid collections. Flow voids are seen in the cerebral arteries on the T2-weighted sequence s consistent with their expected patency. Changes of bilateral intraocular lens replacement. There is also a large region of increased T1 and decreased T2 signal within the left globe with increased den sity on prior CT consistent with silicone typically for treatment of retinal detachment. Mucous reten tion cyst in the right maxillary sinus. Mucous filling the right sphenoid sinus. Bilateral ronnell bul losa. There are no areas of abnormal enhancement on the post contrast images. IMPRESSION: 1. 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 No acute intracranial process. 2. Age-related changes including moderate diffuse volume loss and mild periventricular predominant ca lcific white matter T2 hyperintensity consistent with chronic small vessel ischemic disease. Reviewed, dictated and finalized at location A. IMPRESSION: 1. 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 No acute intracranial process. 2. Age-related changes including moderate diffuse volume loss and mild perivent ricular predominant calcific white matter T2 hyperintensity consistent with chr onic small vessel ischemic disease.
--- NOTE | 2025-01-16 17:00 | ECG_ITS ---
Test Date: 2025-01-16 17:15:43 Measurements Intervals [place] Rate: 97 P: 0 NV: 0 QRS: -46 QRSD: 85 T: -30 QT: 384 QTc: 488 Interpretive Statements ATRIAL FIBRILLATION LEFT ANTERIOR FASCICULAR BLOCK BORDERLINE T WAVE ABNORMALITY- INFERIOR LEADS BASELINE ARTIFACT- I, II, III, AVR, AVL, AVF ABNORMAL ECG No previous ECG available for comparison Electronically Signed On 01-16-2025 17:49:08 CDT by Eduardo Oviedo D.O.
[2025-01-16 17:02] VITALS: BP 130/68; PULSE 93; RESP 20; TEMP 36.7; O2SAT 97
[2025-01-16 17:03] VITALS: PULSE 89
[2025-01-16 17:05] VITALS: O2SAT 97
[2025-01-16 17:20] LABS: Basophils Percent Auto 0.3 % (0.2-1.2); Eosinophils Percent Auto 0.2 % (0-4.4); Hematocrit 47.9 % (37.0-47.0); Hemoglobin 15.3 g/dL (12.0-15.0); Immature Granulocyte Absolute 0.06 K/mm3 (0.00-0.031); Immature Granulocyte Percent A 0.4 % (0-0.5); Mean Corpuscular HGB Conc 31.9 g/dl (32-36); Mean Corpuscular Hemoglobin 28.5 pg (26-34); Mean Corpuscular Volume 89.4 fl (80-100); Mean Platelet Volume 10.5 fl (7.4-10.4); Monocytes Absolute Auto 0.6 K/mm3 (0.1-0.6); Monocytes Percent Auto 4.3 % (2.6-8.5); Neutrophils Absolute Auto 11.9 K/mm3 (1.3-6.7); Neutrophils Percent Auto 88.8 % (45.5-73.1); Platelet Count Result 179 k/mm3 (150-375); Red Blood Count 5.36 M/mm3 (4.2-5.4); Red Cell Distribution Width 13.3 % (11.5-14.5); White Blood Count 13.4 K/mm3 (4.5-10.0)
[2025-01-16 17:28] LABS: Alanine Aminotransferase 31 U/L (6-35); Albumin Level 4.3 g/dL (3.5-5.1); Alkaline Phosphatase 118 U/L (38-126); Anion Gap 12 mmol/L (4-12); Aspartate Amino Transferase 48 U/L (14-36); Bilirubin,Total 0.8 mg/dL (0.2-1.3); Blood Urea Nitrogen 28 mg/dL (7-17); Calcium 9.1 mg/dL (8.4-10.2); Carbon Dioxide 26 mmol/L (22-30); Chloride 103 mmol/L (98-107); Estimated CRCL calculation 41 ml/min; Estimated Glomerular Filt Rate > 60; Glucose 145 mg/dL (65-110); Potassium 4.7 mmol/L (3.4-5.0); Sodium 141 mmol/L (137-145)
[2025-01-16 17:29] LABS: INR 1.1
[2025-01-16 17:30] LABS: Partial Thromboplastin Time 23.6 Seconds (22.3-36.8)
[2025-01-16 18:13] LABS: Add Urine Microscopic? YES; Appearance Urine Cloudy (Clear); Bacteria Urine 2+ /hpf; Bilirubin Urine 1+ (Negative); Blood Urine Negative (Negative); Color Urine Dark Yellow (Yellow); Glucose Urine UA Negative (Negative); Ketones Urine Trace mg/dL (Negative); Leukocyte Esterase Ur Trace LEU/UL (Negative); Mucus Urine Present /lpf; Need Manual Microscopic Reviewed; Nitrate Urine Negative (Negative); Protein Urine 1+ mg/dL (Negative); RBC Urine >100 /hpf (0-2); Specific Grav Ur 1.033 (1.001-1.035); Squamous Epithelial Cell Urine Few /hpf (Few); pH Urine 5.5 (5.0-9.0)
[2025-01-16 18:19] VITALS: BP 119/68; PULSE 96; RESP 21; O2SAT 96
--- OUTSIDE RECORDS SUMMARY | 2025-01-16 18:30 | XMS_ITS | Clinical Summary ---
Author Organization [facility] Address [address] [facility] [address] Care Team Providers Care Corporate Job Titles Name Role Phone Tashi Franco MD Primary Care Provider [phone] Medications apixaban (ELIQUIS) 5 mg tablet Take 5 mg by mouth. Active aspirin (ECOTRIN EC) 81 mg Tablet, Delayed Release (E.C.) Active timoloL maleate (TIMOPTIC) 0.5% solution 1 Drop. Active sertraline (ZOLOFT) 50 mg tablet 05/19/2020 Active pravastatin (PRAVACHOL) 20 mg tablet TAKE 1 TABLET BY MOUTH EVERY DAY 07/04/2020 Active nystatin (NYSTOP) 100,000 unit/gram powder APPLY TO AFFECTED AREA TWICE A DAY 05/15/2020 Active multivitamin (DAILY-MIKEL) tablet Active memantine (NAMENDA) 10 mg Tablet 07/11/2020 Active losartan (COZAAR) 25 mg tablet TAKE 1 TABLET BY MOUTH EVERY DAY 06/17/2020 Active Active Problems Problem Noted Date Diagnosed Date Erythrocytosis 07/14/2020 Family History Medical History Relation Name Comments No Known Problems Daughter Diabetes Son 1 No Known Problems Son 2 No Known Problems Son 3 Relation Name Status Comments Daughter Alive Father Mother Son 1 Alive Son 2 Alive Son 3 Alive Social History Tobacco Use Types Packs/Day Years Used Date Smoking Tobacco: Never Smokeless Tobacco: Never Alcohol Use Standard Drinks/Week Comments Never 0 (1 standard drink = 0.6 oz pur e alcohol) Comments Unknown Sex and Gender Information Value Date Recorded Sex Assigned at Not on file Legal Sex Female 1:35 PM CDT Gender Identity Not on file Sexual Orientation Not on file Last Filed Vital Signs Vital Sign Reading Time Taken Comments Blood Pressure 122/74 07/14/2020 2:07 PM CDT Pulse 105 07/14/2020 2:07 PM CDT first bp was 115/79 hr 117 Temperature 36.7 C (98.1 F) 07/14/2020 2:07 PM CDT Respiratory Rate - - Oxygen Saturation 97% 07/14/2020 2:0 7 PM CDT Inhaled Oxygen Concentration - - Weight 63.6 kg (140 lb 3.2 oz) 07/14/2020 2:07 PM CDT Height 157.5 cm (5' 2 ) 07/14/2020 2:07 PM CDT Body Mass Index 25.64 07/14/2020 2:07 PM CDT Plan of Treatment Health Maintenance Due Date Last Done Comments DTAP/TDAP/TD VACCINES (1 - Tdap) 1956 PNEUMOCOCCAL VACCINE 50+ YEARS (1 of 1 - PCV) 06/16/19 87 ZOSTER VACCINE (1 of 2) 1987 OSTEOPOROSIS SCREENING 2002 RSV VACCINE (60+ or ) (1 - 1-dose 75+ series) 2012 INFLUENZA VACCINE (#1) 2024 Care Teams Corporate Job Titles Relationship Specialty Start Date End Date Tashi Franco MD [address] [facility] [address] [place] [id number] PCP - General Family Practice 06/18/20
--- OUTSIDE RECORDS SUMMARY | 2025-01-16 18:30 | XMS_ITS | Clinical Summary ---
Author Organization [facility] Address [address] [place] [id number] Care Team Providers Care Post Anesthesia Care Unit Nurse Name Role Phone Tashi Franco MD Primary Care Provider Allergies No known active allergies Medications aspirin 81 mg tablet Active latanoprost (XALATAN) 0.005 % ophthalmic solution both eyes daily 11/19/2014 Active polyethylene glycol 3350,bulk, granules as needed 11/19/2014 Active pravastatin (PRAVACHOL) 20 mg tablet 08/01/2018 Active sertraline (ZOLOFT) 50 mg tablet 08/29/2018 Active timolol (BETIMOL) 0.5 % ophthalmic solution 1 drop 2 (two) times a day Active memantine (NAMENDA) 10 mg tablet Take 1 tablet (10 mg total) by mouth 2 (two) times a day 180 tablet 3 12/29/[address] (PROTONIX) 40 mg EC tablet 11/09/2023 Active metoprolol XL (TOPROL-XL) 25 mg extended release tablet Take 3 tablets (75 mg total) by mouth daily 11/09/2023 Active Active Problems Problem Noted Date Diagnosed Date A-fib 08/23/2019 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 07/23/2019 Hearing loss 04/20/2017 Alzheimer's disease 04/20/2017 Dementia 11/21/2014 Weakness 11/21/2014 Weakness of left side of body 11/21/2014 Surgical History Surgery Date Site/Laterality Comments COLON SURGERY Medical History Medical History Date Comments Alzheimer's disease, unspeci fied (CODE) (HCC) Alzheimer's dementia - (Adde d by TW Conv) Hypertension Hyperlipidemia Full dentures Diverticulitis Cataracts, both eyes Glaucoma Family History Medical History Relation Name Comments Cancer Father Derek Rudolph Lung cancer Father Derek Rudolph Alzheimer's disease Mother Diana Rudolph Arthritis Mother Diana Rudolph Dementia Mother Diana Rudolph Hearing loss Mother Diana Rudolph Memory loss Mother Diana Rudolph Relation Name Status Comments Father Derek Rudolph (Age 80) Mother Diana Rudolph (Age 88) Social History Tobacco Use Types Packs/Day Years Used Date Smoking Tobacco: Never Smokeless Tobacco: Never Tobacco Cessation:Counseling Given: Not Answered Alcohol Use Standard Drinks/Week Comments Not Currently 0 (1 standard drink = 0.6 oz pur e alcohol) Personal Safety Answer Date Recorded Getting School Help Needed Not on file 11/14 Comments Unknown Sex and Gender Information Value Date Recorded Sex Assigned at Not on file 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 Gender Identity Female 03/05/2020 9:00 AM CDT Sexual Orientation Straight 03/05/2020 9: 00 AM CDT Obstetrics History Last Filed Vital Signs Vital Sign Reading Time Taken Comments Blood Pressure 92/58 12/05/2023 1:18 PM CDT Pulse 88 12/05/2023 1:18 PM CDT Temperature 36.5 C (97.7 F) 08/31/2021 9:11 AM BANKING PIN ADJUSTER Respiratory Rate - - Oxygen Saturation 98% 08/31/2021 9:11 AM BANKING PIN ADJUSTER Inhaled Oxygen Concentration - - Weight 48.5 kg (107 lb) 12/05/2023 1:18 PM CDT Height 157.5 cm (5' 2 ) 12/05/2023 1:18 PM CDT Body Mass Index 19.57 12/05/2023 1:18 PM CDT Plan of Treatment Health Maintenance Due Date Last Done Comments Depression Screening 1937 Fall Risk Assessment 1937 DTaP/Tdap/Td Vaccine (1 - Tdap) 1948 Hepatitis B Screening 1955 Zoster Vaccine (1 of 2) 1987 Well Visit 65+ 2002 Influenza Vaccine (Season Ended) 2025 06/07/2017, 06/14/2016, 06/29/2015, Additional history exists Pneumococcal vaccine 65+ Completed 06/14/2016, 12/2010 Insurance [facility] Care Teams Post Anesthesia Care Unit Nurse Relationship Specialty Start Date End Date Tashi Franco MD [address] [facility] [address] [place] [address] PCP - General 04/20/17
--- OUTSIDE RECORDS SUMMARY | 2025-01-16 18:30 | XMS_ITS | Referral Summary ---
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 Gender Identity Female 03/05/2020 9:00 AM CDT Sexual Orientation Straight 03/05/2020 9: 00 AM CDT Last Filed Vital Signs Vital Sign Reading Time Taken Comments Blood Pressure 92/58 12/05/2023 1:18 PM CDT Pulse 88 12/05/2023 1:18 PM CDT Temperature 36.5 C (97.7 F) 08/31/2021 9:11 AM BATTERY TESTER AND REPAIRER Respiratory Rate - - Oxygen Saturation 98% 08/31/2021 9:11 AM BATTERY TESTER AND REPAIRER Inhaled Oxygen Concentration - - Weight 48.5 kg (107 lb) 12/05/2023 1:18 PM CDT Height 157.5 cm (5' 2 ) 12/05/2023 1:18 PM CDT Body Mass Index 19.57 12/05/2023 1:18 PM CDT Plan of Treatment [place] [address] [facility] Care Teams Rad Technologist Relationship Specialty Start Date End Date Tashi Franco MD [address] [facility] [address] [place] [address] PCP - General 04/20/17
--- NOTE | 2025-01-16 19:25 | PM.IMHP ---
H&P: HPI History of Present Illness Date/Time: 01/17/25 02:30 Chief Complaint: Suspected seizure. Narrative: This is an 89-year-old female with dementia, atrial fibrillation not on anticoagulation, hypertension, gastroesophageal reflux disease, and anxiety who presented to the emergency department via EMS from [facility] for evaluation after a suspected seizure. She is not a reliable historian and majority the following is obtained via a review of her electronic medical records as well as information provided by family members. Just prior to arrival she reportedly had a 32nd tonic-clonic seizure with no reported history of the same. Family members state that she recently had a medication change but did not know for sure what that was. At the time my evaluation the patient is alert and she is in good spirits. She does not remember why she was brought to the hospital today and she has no complaints. She specifically denies headache, vertigo, visual changes, focal weakness, paresthesias, fever, chest pain, shortness of breath, cough, abdominal pain, nausea, vomiting, diarrhea, and dysuria. There were no reports of recent illness. In the ED: Vital signs on arrival include a temperature of 90.0?, blood pressure 130/68, pulse 93, respiratory rate 20, SpO2 97% on room air. Labs were significant for WBC count 13.4, hemoglobin 15.3, BUN 20, creatinine 0.68, glucose 145, AST 48. Urinalysis was positive for 1+ protein, trace ketones, trace leukocyte esterase, greater than 100 RBC, 11 to 20 WBC, and 2+ bacteria. Head CT and chest x-ray were without acute findings. EKG showed atrial fibrillation with a rate of 97 and left anterior fascicular block with borderline T-wave abnormalities in inferior leads. She received ceftriaxone 1 g for possible UTI and is being admitted in this setting for further workup. [facility] Past Medical History Medical History (Updated 01/17/25 @ 03:36 by Majo Kirby PA-C) Hyperlipidemia Hypertension Anxiety Dementia Total retinal detachment, left eye Osteopenia Atrial fibrillation Vitamin D deficiency Depression Surgical History Surgical History (Updated 01/17/25 @ 03:33 by Majo Kirby PA-C) History of colostomy History of partial colectomy Family History Family History Father Family history of malignant neoplasm Mother Family history of coronary artery disease Social History Social History (Updated 01/17/25 @ 03:34 by Majo Kirby PA-C) Social History: Surrogate medical decision maker: Yarelis Hernandez. Code status: Do not resuscitate. Smoking status: Unknown if ever smoked Second hand tobacco smoke exposure: No Alcohol intake: unknown Substance use: unknown Substance use type: does not use Lack of Transportation: No Lack of Food: Never True Current Housing: I Have Housing Concerned About Future Housing: No Difficulty Paying Gas/Electric Bills: No Difficulty Paying for Meds: No Currently Unemployed: No Education: Decline to Answer Difficulty w/ Childcare or Family Care: No Living arrangements: with family Occupation/Education: retired Spiritual care concerns: No Meds Home Medications and Allergies Home Medications ?Medication ?Instructions ?Recorded ?Confirmed ?Type memantine 10 mg tablet (Namenda) 10 mg PO Q12H 08/20/19 01/16/25 History nystatin 100,000 unit/gram topical 1 applic topical BID #60 grams 03/12/21 01/16/25 Rx powder pravastatin 20 mg tablet 20 mg PO DAILY #90 tabs 01/04/22 01/16/25 Rx acetaminophen 325 mg capsule 650 mg PO Q6H PRN Fever Or Pain 11/02/23 01/16/25 History sertraline 50 mg tablet 50 mg PO HS 11/02/23 01/16/25 History aspirin 81 mg tablet,delayed 81 mg PO DAILY #30 tabs 11/08/23 01/16/25 Rx release donepezil 10 mg tablet 10 mg PO HS 01/16/25 01/16/25 History famotidine 40 mg tablet 40 mg PO HS 01/16/25 01/16/25 History loratadine 10 mg tablet (Claritin) 10 mg PO DAILY 01/16/25 01/16/25 History melatonin 10 mg capsule 10 mg PO HS 01/16/25 01/16/25 History metoprolol tartrate 25 mg tablet 37.5 mg PO Q12H 01/16/25 01/16/25 History olanzapine 5 mg tablet 5 mg PO Q8H 01/16/25 01/16/25 History agitation/hypersexulaity ondansetron 4 mg disintegrating 4 mg PO Q8H PRN nausea and vomiting 01/16/25 01/16/25 History tablet quetiapine 25 mg tablet 25 mg PO HS 01/16/25 01/16/25 History Allergies Allergy/AdvReac Type Severity Reaction Status Date / Time No Known Allergies Allergy Verified 01/16/25 17:07 Vital Signs Vital Signs - 24 hr 01/16/25 17:02 01/16/25 17:03 01/16/25 17:05 Temperature 98.0 F Pulse Rate 93 89 Respiratory Rate 20 Blood Pressure 130/68 Pulse Oximetry 97 97 Oxygen Delivery Room Air 01/16/25 18:19 Temperature Pulse Rate 96 Respiratory Rate 21 H Blood Pressure 119/68 Pulse Oximetry 96 Oxygen Delivery Exam Narrative: General: Nontoxic-appearing female sitting up in bed in no acute distress. Weight: 58.2 kg. BMI: 25.1. HEENT: PERRL, EOMI. Sclera anicteric. Tacky mucous membranes. Neck: Supple. Respiratory: Lungs are clear to auscultation bilaterally. Cardiovascular: Irregularly irregular rate and rhythm. Gastrointestinal: Abdomen is soft, nontender, and nondistended with positive bowel sounds. Skin: Warm and dry. No rash or lesions on limited exam. Extremities: No cyanosis, clubbing, or edema. Radial and pedal pulses intact. Neurological: Alert and oriented to name and month and day of . She cannot recall why she was brought to the hospital today and did remember that she was in the hospital. She told me that she was 18. Cranial nerves 2-12 are grossly intact. Speech is clear. No facial asymmetry. No gross focal deficits to casual conversation. Psychiatric: Pleasantly confused and cooperative. H&P: Results Labs Labs: Short CBC 01/16/25 Range/Units 17:11 WBC 13.4 H (4.5-10.0) K/mm3 Hgb 15.3 H D (12.0-15.0) g/dL Hct 47.9 H (37.0-47.0) % Plt Count 179 (150-375) k/mm3 BMP 01/16/25 17:11 Sodium 141 Potassium 4.7 Chloride 103 Carbon Dioxide 26 BUN 28 H D Creatinine 0.68 L Glucose 145 H Calcium 9.1 Liver Function 01/16/25 Range/Units 17:11 Total Bilirubin 0.8 (0.2-1.3) mg/dL AST 48 H (14-36) U/L ALT 31 (6-35) U/L Alkaline Phosphatase 118 (38-126) U/L Albumin 4.3 (3.5-5.1) g/dL Urine 01/16/25 Range/Units 17:11 Urine Color Dark yellow (Yellow) Urine Appearance Cloudy H (Clear) Urine pH 5.5 (5.0-9.0) Ur Specific [place] 1.033 (1.001-1.035) Urine Protein 1+ H (Negative) mg/dL Urine Glucose (UA) Negative (Negative) mg/dL Imaging Head CT 01/16/25 18:39 IMPRESSION: No acute intracranial findings. Chest X-Ray 01/16/25 19:01 IMPRESSION: No acute cardiopulmonary pathology. Assessment and Plan Assessment and plan (1) Observed seizure-like activity: Code(s): R56.9 - Unspecified convulsions Status: Acute (2) Atrial fibrillation: Code(s): I48.91 - Unspecified atrial fibrillation Status: Acute (3) Bacteriuria: Code(s): R82.71 - Bacteriuria Status: Acute (4) Hypertension: Code(s): I10 - Essential (primary) hypertension Status: Acute (5) Dementia: Code(s): F03.90 - Unspecified dementia, unspecified severity, without behavioral disturbance, psychotic disturbance, mood disturbance, and anxiety Status: Acute Plan The patient presented to the emergency department for evaluation of reported tonic clonic seizure-like activity lasting less than 30 seconds as detailed in HPI. Labs, imaging, EKG, and all reports were personally reviewed. She has no history of seizures and has not demonstrated any seizure-like activity since arrival. She will be monitored on telemetry. Brain MRI and EEG have been ordered wrote for further evaluation. Neurology has been consulted. Continue ceftriaxone for possible urinary tract infection, pending urine culture. Renal ultrasound ordered for evaluation a hematuria. She is in atrial fibrillation with rates anywhere from the low 90s to 130s and is asymptomatic. Continue metoprolol and monitor. She is not on anticoagulation, presumably due to age and fall risk though that is not documented. Blood pressures have been reasonable and will be monitored. Her home medications will be reviewed and resumed as appropriate. The patient's medical management will be taken over by the hospitalist team in a.m. Quality VTE Prophylaxis VTE prophylaxis: pharmacologic ordered Hospitalist MIPS Advance Care Plan I have confirmed that the patient's Advanced Care Plan is present, code status is documented, or surrogate decision maker is listed in patient medical record.: Yes Medication Reconciliation I have utilized all available resources to obtain, update and review the patients current medications (includes all prescriptions, OTC, herbals, cannabis, and nutritional supplements).: Yes
--- NOTE | 2025-01-16 19:27 | ED_ITS ---
HPI - General Adult General Chief complaint: Seizure Stated complaint: possible seizure Time Seen by Provider: 01/16/25 18:07 History of Present Illness HPI narrative: Patient is a 89-year-old female presents emergency department chief complaint of seizure. Patient has history of dementia [facility] the patient had a seizure last for approximately 30 seconds. Patient's family reports that there has been a medication change recently patient is normally alert oriented x1 history is limited Related Data Home Medications ?Medication ?Instructions ?Recorded ?Confirmed ?Last Taken ?Type memantine 10 mg tablet (Namenda) 10 mg PO DAILY 08/20/19 09/03/24 Unknown History polyethylene glycol 3350 17 gram 17 gm PO DAILY PRN Constipation 08/20/19 09/03/24 Unknown History oral powder packet (Miralax) acetaminophen 325 mg capsule 325 mg PO Q6H PRN Fever Or Pain 11/02/23 09/03/24 Unknown History sertraline 50 mg tablet 50 mg PO DAILY 11/02/23 09/03/24 Unknown History Allergies Allergy/AdvReac Type Severity Reaction Status Date / Time No Known Allergies Allergy Verified 01/16/25 17:07 Review of Systems 2 Review of Systems: A 10 system review of systems was completed on the patient and is negative except for what is stated in the HPI. Nursing and ancillary documentation was reviewed. [facility], [facility] Past Medical History Medical History HLD (hyperlipidemia) Dementia Total retinal detachment, left eye Osteopenia Atrial fibrillation Vitamin D deficiency TASHIA (generalized anxiety disorder) Depression HTN (hypertension) Surgical History Surgical History Surgical history unknown Family History Family History Father Family history of malignant neoplasm Mother Family history of coronary artery disease Social History Social History Smoking status: Never smoker Second hand tobacco smoke exposure: No Alcohol intake: never Substance use: never Substance use type: does not use Lack of Transportation: No Lack of Food: Never True Current Housing: I Have Housing Concerned About Future Housing: No Difficulty Paying Gas/Electric Bills: No Difficulty Paying for Meds: No Currently Unemployed: No Education: Decline to Answer Difficulty w/ Childcare or Family Care: No Living arrangements: with family Occupation/Education: retired Gender identity (if verbalized by the patient): Female Spiritual care concerns: No Exam 2 Narrative: GENERAL: Well-appearing, well-nourished, and in no acute distress. HEAD: Normocephalic, atraumatic. EYES: PERRLA and EOMI. ENT: Nares clear, no rhinorrhea or epistaxis. Mucous membranes moist. NECK: Supple. CHEST: Clear to auscultation. No respiratory distress. HEART: Regular rate and rhythm. No murmur heard. Normal peripheral pulses. ABDOMEN: Soft, nontender, nondistended, normal active bowel sounds. EXTREMITIES: Normal range of motion. No edema. SKIN: Warm, dry, no rash. NEURO: No focal deficits. Alert and oriented x1. PSYCH: Normal mood and affect. Course Vital Signs Vital signs: Vital Signs Temperature 36.7 C 01/16/25 17:02 Pulse Rate 93 01/16/25 17:02 Respiratory Rate 20 01/16/25 17:02 Blood Pressure 130/68 01/16/25 17:02 Pulse Oximetry 97 01/16/25 17:02 Temperature 36.7 C 01/16/25 17:02 Pulse Rate 96 01/16/25 18:19 Respiratory Rate 21 H 01/16/25 18:19 Blood Pressure 119/68 01/16/25 18:19 Pulse Oximetry 96 01/16/25 18:19 Oxygen Delivery Room Air 01/16/25 17:05 Medical Decision Making [facility] Narrative Medical decision making narrative: Differential diagnosis includes seizure, infection, electrolyte abnormality, dehydration Laboratory studies were obtained showed evidence of UTI CT head showed no acute abnormality chest x-ray showed nothing acute laboratory studies showed a white count of 13.4 and hemoglobin of 15.3 Patient started on Rocephin the case was discussed with hospitalist Neurology consult and MRI and EEG will be ordered on the patient. Vital Signs Vital Signs: Vital Signs Temperature 36.7 C 01/16/25 17:02 Pulse Rate 93 01/16/25 17:02 Respiratory Rate 20 01/16/25 17:02 Blood Pressure 130/68 01/16/25 17:02 Pulse Oximetry 97 01/16/25 17:02 Temperature 36.7 C 01/16/25 17:02 Pulse Rate 96 01/16/25 18:19 Respiratory Rate 21 H 01/16/25 18:19 Blood Pressure 119/68 01/16/25 18:19 Pulse Oximetry 96 01/16/25 18:19 Oxygen Delivery Room Air 01/16/25 17:05 Lab Data 01/16/25 17:11 01/16/25 17:11 Labs: Lab Results 01/16/25 Range/Units 17:11 WBC 13.4 H (4.5-10.0) K/mm3 RBC 5.36 (4.2-5.4) M/mm3 Hgb 15.3 H D (12.0-15.0) g/dL Hct 47.9 H (37.0-47.0) % MCV 89.4 (80-100) fl MCH 28.5 (26-34) pg MCHC 31.9 L (32-36) g/dl RDW 13.3 (11.5-14.5) % Plt Count 179 (150-375) k/mm3 MPV 10.5 H (7.4-10.4) fl Immature Gran % (Auto) 0.4 (0-0.5) % Neut % (Auto) 88.8 H (45.5-73.1) % Lymph % (Auto) 6.0 L (18.3-44.2) % [place] % (Auto) 4.3 (2.6-8.5) % Eos % (Auto) 0.2 (0-4.4) % Baso % (Auto) 0.3 (0.2-1.2) % Lymph # (Auto) 0.80 L (0.9-3.2) K/mm3 [place] # (Auto) 0.6 (0.1-0.6) K/mm3 Eos # (Auto) 0.0 (0-0.3) K/mm3 Baso # (Auto) 0.0 (0.0-0.1) K/mm3 Abs Immat Gran (auto) 0.06 H (0.00-0.031) K/mm3 Absolute Neuts (auto) 11.9 H (1.3-6.7) K/mm3 Absolute Nucleated RBC 0.000 (0.0-0.012) K/mm3 Nucleated RBC % 0.0 (0.0-0.2) % PT 14.0 (11.1-14.7) Seconds INR 1.1 APTT 23.6 (22.3-36.8) Seconds Sodium 141 (137-145) mmol/L Potassium 4.7 (3.4-5.0) mmol/L Chloride 103 (98-107) mmol/L Carbon Dioxide 26 (22-30) mmol/L Anion Gap 12 (4-12) mmol/L BUN 28 H D (7-17) mg/dL Creatinine 0.68 L (0.7-1.0) mg/dL Estim Creat Clear Calc 41 ml/min Estimated GFR > 60 (59 - ) Glucose 145 H (65-110) mg/dL Calcium 9.1 (8.4-10.2) mg/dL Total Bilirubin 0.8 (0.2-1.3) mg/dL AST 48 H (14-36) U/L ALT 31 (6-35) U/L Alkaline Phosphatase 118 (38-126) U/L Total Protein 7.0 (6.3-8.2) g/dL Albumin 4.3 (3.5-5.1) g/dL Urine Color Dark yellow (Yellow) Urine Appearance Cloudy H (Clear) Urine pH 5.5 (5.0-9.0) Ur Specific [place] 1.033 (1.001-1.035) Urine Protein 1+ H (Negative) mg/dL Urine Glucose (UA) Negative (Negative) mg/dL Urine Ketones Trace H (Negative) mg/dL Ur Blood (Man) Negative (Negative) Urine Nitrate Negative (Negative) Urine Bilirubin 1+ H (Negative) Urine Urobilinogen 1.0 (<2.0) mg/dL Add Ur Microanalysis Reviewed Leukocyte Esterase Rfl Trace H (Negative) FOREIGN/UL Urine RBC >100 H (0-2) /hpf Urine WBC 11-20 H (0-3) /hpf Ur Squamous Epith Cells Few (Few) /hpf Urine Bacteria 2+ H /hpf Urine Casts 11-20 Urine Mucus Present /lpf Discharge Plan Discharge Clinical Impression: Seizure UTI (urinary tract infection) Qualifiers: Urinary tract infection type: acute cystitis Hematuria presence: without hematuria Qualified Code(s): N30.00 - Acute cystitis without hematuria Patient Disposition: Acute Care Hospital Condition: Stable Patient Language: Latvian Prescriptions: No Action memantine [Namenda] 10 mg tablet 10 mg PO DAILY polyethylene glycol 3350 [Miralax] 17 gram powder in packet 17 gm PO DAILY PRN (Reason: Constipation) nystatin 100,000 unit/gram powder 1 applic TOPICAL BID Qty: 60 3RF sertraline 50 mg tablet 50 mg PO DAILY acetaminophen 325 mg capsule 325 mg PO Q6H PRN (Reason: Fever Or Pain) sennosides-docusate sodium [Senokot-S] 8.6-50 mg Tablet 2 tab-cap PO BID Qty: 60 0RF hydrocodone-acetaminophen 5-325 mg Tablet 1 tablet PO Q6H PRN (Reason: Pain Rated 4-6) Qty: 20 0RF metoprolol succinate [Toprol XL] 25 mg Tablet Extended Release 24 Hr 75 mg PO QAM Qty: 30 1RF pantoprazole [Protonix] [address] for susp in packet 40 mg PO DAILY Qty: 30 0RF aspirin 81 mg tablet,delayed release (DR/EC) 81 mg PO DAILY Qty: 30 0RF nitrofurantoin 50 mg/5 mL suspension 100 mg PO QID Qty: 240 0RF Rx Instructions: must administer with a meal/food pravastatin 20 mg tablet 20 mg PO DAILY Qty: 90 2RF Follow-up/Referrals: UNKNOWN,DOCTOR [Primary Care Provider] - Time of Disposition: 19:36
[2025-01-16 20:29] VITALS: BP 108/75; PULSE 112; RESP 13; O2SAT 97
[2025-01-16] MEDS: SODIUM CHLORIDE 0.9% IV 1,000 ML 125 ML IV CONT (20:39)
[2025-01-16 21:17] VITALS: BMI 24.8
--- NOTE | 2025-01-16 21:19 | ADMGEN ---
This patient, Valentina Machado, was admitted to Medical Room 249-01. Patient/family oriented to hospital policies and general routines including ID bracelet, bed and alarms, visiting hours, pain management, procedures, bathroom and other care routines, personal items, smoking policy, room service/diet, and visiting hours. Information on how to activate the Rapid Response Team has been discussed. Patient/Family are encouraged to report perceived risks to care and to ask questions if they do not understand what they are told or what they should do.
[2025-01-16 22:00] VITALS: BP 123/95; PULSE 118; RESP 18; TEMP 36.8; O2SAT 90
[2025-01-17] VITALS (14 sets, daily range): BP systolic 90–135; BP diastolic 49–66; PULSE 76–135; RESP 18; TEMP 36.4–37.3; O2SAT 90–97; BMI 25.4
[2025-01-17] MEDS: METOPROLOL TARTRATE 50 MG TAB PO (00:58)
[2025-01-17] MEDS: SODIUM CHLORIDE 0.9% IV 1,000 ML 100 ML IV CONT (03:58)
[2025-01-17 05:24] LABS: Hematocrit 41.4 % (37.0-47.0); Hemoglobin 12.7 g/dL (12.0-15.0); Mean Corpuscular HGB Conc 30.7 g/dl (32-36); Mean Corpuscular Volume 91.4 fl (80-100); Platelet Count Result 153 k/mm3 (150-375); Red Blood Count 4.53 M/mm3 (4.2-5.4); Red Cell Distribution Width 13.3 % (11.5-14.5); White Blood Count 12.4 K/mm3 (4.5-10.0)
[2025-01-17 05:32] LABS: Alanine Aminotransferase 24 U/L (6-35); Albumin Level 3.7 g/dL (3.5-5.1); Alkaline Phosphatase 109 U/L (38-126); Anion Gap 6 mmol/L (4-12); Aspartate Amino Transferase 35 U/L (14-36); Bilirubin,Total 0.8 mg/dL (0.2-1.3); Blood Urea Nitrogen 29 mg/dL (7-17); Calcium 8.4 mg/dL (8.4-10.2); Carbon Dioxide 28 mmol/L (22-30); Chloride 107 mmol/L (98-107); Creatine Kinase 59 U/L (30-135); Estimated CRCL calculation 40 ml/min; Estimated Glomerular Filt Rate > 60; Glucose 106 mg/dL (65-110); Magnesium 2.1 mg/dL (1.6-2.3); Potassium 4.2 mmol/L (3.4-5.0); Sodium 141 mmol/L (137-145)
[2025-01-17 06:03] LABS: Thyroid Stimulating Hormone Reflex 0.599 uIU/mL (0.465-4.68)
--- NOTE | 2025-01-17 07:17 | PM.IMPN ---
Progress Note: A&P Assessment and Plan (1) Observed seizure-like activity: Code(s): R56.9 - Unspecified convulsions Status: Acute Assessment and Plan: Family observed tonic clonic seizure-like activity lasting less than 30 seconds. No prior history of seizures. Patient is on several medications including donepezil, quetiapine, and sertraline that can cause seizures however patient has been on these medications since 01/2024 - EKG showed atrial fibrillation with HR 97 - Head CT and Chest XR were unremarkable - Brain MRI ordered - EEG ordered - Started Keppra 500mg BID - Continue telemetry - Neurology consulted, appreciate recommendations (2) Bacteriuria: Code(s): R82.71 - Bacteriuria Status: Acute Assessment and Plan: - UA: cloudy appearance with 1+ protein, trace ketones, 1+ bili, trace leukocytes, >100 RBC, 11-20 WBC, 2+ bacteria. Few epitheleal cells present. - UC obtained on 01/16: read pending - previous micro reviewed 10/31/23: Ecoli ESBL resistance - started on rocephin on 01/17 (3) Atrial fibrillation: Code(s): I48.91 - Unspecified atrial fibrillation Status: Acute Assessment and Plan: EKG on admission showed atrial fibrillation with HR 97 Continue metoprolol 37.5 mg BID Per prior cardiology note on 11/08/23 patient is not on anticoagulation because of her mental status and risk for falling making her a poor candidate Remains on tele for seizure Monitor (4) Hypertension: Code(s): I10 - Essential (primary) hypertension Status: Acute Assessment and Plan: Chronic, continue home medications - metoprolol 37.5 mg BID - blood pressures stable, continue to monitor (5) Dementia: Code(s): F03.90 - Unspecified dementia, unspecified severity, without behavioral disturbance, psychotic disturbance, mood disturbance, and anxiety Status: Acute Assessment and Plan: Chronic, continue memantine and donepezil Time Spent With Patient Time with patient: 25 - 35 minutes Subjective Date/time seen: 01/17/25 07:17 Interval history: 89-year-old female with dementia, atrial fibrillation not on anticoagulation, hypertension, gastroesophageal reflux disease, and anxiety who presented to the hospital via EMS from [facility] for evaluation after a suspected seizure. Patient is pleasant lying in bed. Remains Aox1 (baseline). She has no complaints throughout assessment however unsure how accurate given mental status. Review of Systems Review of Systems: AOx1 at baseline. Denies all ROS however unsure how accurate given mental status. All systems reviewed & are unremarkable except as noted in HPI and below Exam Narrative: AF HR 90 RR 18 SpO2 97 BP 98/66 General: female in no acute respiratory distress who is nontoxic appearing, lying semi recumbent in bed. HEENT: Normocephalic. Atraumatic. Extraocular movement intact. Sclera clear and anicteric. No facial asymmetry. Chest: Lungs are clear to auscultation bilaterally. No wheezes or crackles. CV: Heart was regular rate and rhythm. Abd: Abdomen was soft. Nontender. Nondistended. Positive bowel sounds. Ext: No clubbing, cyanosis, or edema. DP pulses bilaterally. Neuro: Patient is alert and oriented x1 (baseline). Speech is clear. Objective Data Vital Signs Vital Signs: Vital Signs - 24 hr 01/16/25 17:02 01/16/25 17:03 01/16/25 17:05 Temperature 98.0 F Pulse Rate 93 89 Respiratory Rate 20 Blood Pressure 130/68 Pulse Oximetry 97 97 Oxygen Delivery Room Air 01/16/25 18:19 01/16/25 20:29 01/16/25 22:00 Temperature 98.3 F Pulse Rate 96 112 H 118 H Respiratory Rate 21 H 13 18 Blood Pressure 119/68 108/75 123/95 H Pulse Oximetry 96 97 90 Oxygen Delivery 01/17/25 00:00 01/17/25 00:58 01/17/25 04:00 Temperature Pulse Rate 135 H 133 H 102 H Respiratory Rate Blood Pressure Pulse Oximetry Oxygen Delivery 01/17/25 06:00 Temperature 97.7 F Pulse Rate 115 H Respiratory Rate 18 Blood Pressure 90/49 L Pulse Oximetry 90 Oxygen Delivery Intake/Output Intake/Output: Intake & Output 01/14/25 01/15/25 01/16/25 01/17/25 23:59 23:59 23:59 23:59 Intake Total 1000 Output Total 75 Balance -75 1000 Meds/Results Medications: Active Medications Generic Name Dose Route Start Last Admin Trade Name Freq PRN Reason Stop Dose Admin Acetaminophen 650 mg 01/16/25 19:21 Acetaminophen 325 Mg Tablet PO Q4H PRN Mild Pain (1-3) or Fever Aspirin 81 mg 05/01/25 09:00 Aspirin 81 Mg Enteric Tablet PO DAILY [facility] Enoxaparin Sodium 40 mg 01/17/25 09:00 Enoxaparin 40 Mg/0.4 Ml Syringe SUB-Q DAILY [facility] Famotidine 40 mg 01/17/25 21:00 Famotidine 20 Mg Tablet PO HS [facility] Ceftriaxone Sodium 1 gm in 50 mls @ 100 mls/hr 01/17/25 21:00 Rocephin 1 Gm/Ns 50 Ml IVPB Q24H [facility] Sodium Chloride 1,000 mls @ 100 mls/hr 01/17/25 03:45 01/17/25 03:58 Normal Saline Iv IV CONT 01/17/25 13:44 100 mls/hr .Q10H ONE Administration Loratadine 10 mg 01/17/25 09:00 Loratadine 10 Mg Tablet PO DAILY [facility] Melatonin 10 mg 01/17/25 21:00 Melatonin 5 Mg Tablet PO HS [facility] Memantine 10 mg 01/17/25 09:00 Memantine 10 Mg Tablet PO Q12HR [facility] Metoprolol Tartrate 37.5 mg 01/17/25 09:00 Metoprolol Tartrate 12.5 Mg Tablet PO Q12HR [facility] Miscellaneous Information 0 each 01/17/25 00:01 We [employer] Tolnaftate Powder For Nystatin Powder. Tolnaftate Is In Central Pyxis. XX 01/18/25 00:00 CLARIFY [facility] Pravastatin Sodium 20 mg 01/17/25 09:00 Pravastatin Sodium 20 Mg Tablet PO DAILY [facility] Quetiapine Fumarate 25 mg 01/17/25 21:00 Quetiapine Fumarate 25 Mg Tablet PO HS [facility] Sertraline HCl 50 mg 01/17/25 21:00 Sertraline Hcl 50 Mg Tablet PO HS [facility] Radiology Results: ITS Impressions Head CT 01/16/25 18:39 IMPRESSION: No acute intracranial findings. Chest X-Ray 01/16/25 19:01 IMPRESSION: No acute cardiopulmonary pathology. Labs Labs: Laboratory Results - last 24 hr 01/16/25 01/17/25 01/17/25 17:11 05:09 05:10 WBC 13.4 H 12.4 H RBC 5.36 4.53 Hgb 15.3 H D 12.7 Hct 47.9 H 41.4 MCV 89.4 91.4 MCH 28.5 28.0 MCHC 31.9 L 30.7 L RDW 13.3 13.3 Plt Count 179 153 MPV 10.5 H 11.0 H Immature Gran % (Auto) 0.4 Neut % (Auto) 88.8 H Lymph % (Auto) 6.0 L [place] % (Auto) 4.3 Eos % (Auto) 0.2 Baso % (Auto) 0.3 Lymph # (Auto) 0.80 L [place] # (Auto) 0.6 Eos # (Auto) 0.0 Baso # (Auto) 0.0 Abs Immat Gran (auto) 0.06 H Absolute Neuts (auto) 11.9 H Absolute Nucleated RBC 0.000 Nucleated RBC % 0.0 PT 14.0 INR 1.1 APTT 23.6 Sodium 141 141 Potassium 4.7 4.2 Chloride 103 107 Carbon Dioxide 26 28 Anion Gap 12 6 BUN 28 H D 29 H Creatinine 0.68 L 0.61 L Estim Creat Clear Calc 41 40 Estimated GFR > 60 > 60 Glucose 145 H 106 Calcium 9.1 8.4 Magnesium 2.1 Total Bilirubin 0.8 0.8 AST 48 H 35 ALT 31 24 Alkaline Phosphatase 118 109 Total Creatine Kinase 59 Total Protein 7.0 6.0 L Albumin 4.3 3.7 TSH (Reflex) 0.599 Urine Color Dark yellow Urine Appearance Cloudy H Urine pH 5.5 Ur Specific [place] 1.033 Urine Protein 1+ H Urine Glucose (UA) Negative Urine Ketones Trace H Ur Blood (Man) Negative Urine Nitrate Negative Urine Bilirubin 1+ H Urine Urobilinogen 1.0 Add Ur Microanalysis Reviewed Leukocyte Esterase Rfl Trace H Urine RBC >100 H Urine WBC 11-20 H Ur Squamous Epith Cells Few Urine Bacteria 2+ H Urine Casts 11-20 Urine Mucus Present Quality VTE Prophylaxis VTE prophylaxis: pharmacologic ordered
[2025-01-17] MEDS: ASPIRIN 81 MG ENTERIC TABLET PO (09:19)
[2025-01-17] MEDS: PRAVASTATIN SODIUM 20 MG TABLET PO (09:19)
[2025-01-17] MEDS: LORATADINE 10 MG TABLET PO (09:19)
[2025-01-17] MEDS: ENOXAPARIN 40 MG/0.4 ML SYRINGE SUB-Q (09:20)
[2025-01-17] MEDS: MEMANTINE 10 MG TABLET PO ×2 (09:20→20:52)
[2025-01-17] MEDS: METOPROLOL TARTRATE 12.5 MG TABLET 37.5 MG PO ×2 (09:20→20:52)
--- NOTE | 2025-01-17 15:46 | P.CONNEU_ITS ---
Assessment and Plan Assessment and plan (1) Seizure: Code(s): R56.9 - Unspecified convulsions Status: Acute (2) Dementia: Code(s): F03.90 - Unspecified dementia, unspecified severity, without behavioral disturbance, psychotic disturbance, mood disturbance, and anxiety Status: Acute Assessment and Plan: This could be vascular versus degenerative dementia. The ventricles appear fairly prominent on the CT scan of brain but that could be because of the atrophy. (3) Atrial fibrillation: Code(s): I48.91 - Unspecified atrial fibrillation Status: Acute Assessment and Plan: She has not on anticoagulation Plan I discussed this with the [facility] Hospitalist in charge the case and given the dementia and other risk factors it was decided to put her on Keppra 500 mg twice a day. I reviewed her CT scan of brain that shows significant atrophy prominent ventricles which gives the appearance of almost hydrocephalus that could be because of the significant superficial atrophy. Patient is currently in a nursing facility. She is already on Namenda 10 mg twice a day which should be continued. She is also on pravastatin 20 mg a day And aspirin 81 mg a day. Consult date: 01/17/25 HPI: Valentina Machado is a 89 year old female Presented to the emergency room with witnessed seizure event. She also has diagnosis of dementia and atrial fibrillation and she is not on anti coagulation. I am not able to get any history from her although she smiles but she is looking at the bed rail as he is talking to someone. She does not respond to any questions in words or sentences but she did squeeze my fingers when asked to. She did not know where she is. I after if she has any pain but I do not believe that she is in a state to give me a reliable answer to the questions at this time. Review of Systems 2 Review of Systems: ROS unobtainable: Yes unobtainable due to mental status PMFSH Past Medical History Medical History Hyperlipidemia Hypertension Anxiety Dementia Total retinal detachment, left eye Osteopenia Atrial fibrillation Vitamin D deficiency Depression Surgical History Surgical History History of colostomy History of partial colectomy Family History Family History Father Family history of malignant neoplasm Mother Family history of coronary artery disease Social History Social History Social History: Surrogate medical decision maker: Yarelis Hernandez. Code status: Do not resuscitate. Smoking status: Unknown if ever smoked Second hand tobacco smoke exposure: No Alcohol intake: unknown Substance use: unknown Substance use type: does not use Lack of Transportation: No Lack of Food: Never True Current Housing: I Have Housing Concerned About Future Housing: No Difficulty Paying Gas/Electric Bills: No Difficulty Paying for Meds: No Currently Unemployed: No Education: Decline to Answer Difficulty w/ Childcare or Family Care: No Living arrangements: with family Occupation/Education: retired Spiritual care concerns: No Meds Home Medications and Allergies Home Medications ?Medication ?Instructions ?Recorded ?Confirmed ?Type memantine 10 mg tablet (Namenda) 10 mg PO Q12H 08/20/19 01/16/25 History nystatin 100,000 unit/gram topical 1 applic topical BID #60 grams 03/12/21 01/16/25 Rx powder pravastatin 20 mg tablet 20 mg PO DAILY #90 tabs 01/04/22 01/16/25 Rx acetaminophen 325 mg capsule 650 mg PO Q6H PRN Fever Or Pain 11/02/23 01/16/25 History sertraline 50 mg tablet 50 mg PO HS 11/02/23 01/16/25 History aspirin 81 mg tablet,delayed 81 mg PO DAILY #30 tabs 11/08/23 01/16/25 Rx release donepezil 10 mg tablet 10 mg PO HS 01/16/25 01/16/25 History famotidine 40 mg tablet 40 mg PO HS 01/16/25 01/16/25 History loratadine 10 mg tablet (Claritin) 10 mg PO DAILY 01/16/25 01/16/25 History melatonin 10 mg capsule 10 mg PO HS 01/16/25 01/16/25 History metoprolol tartrate 25 mg tablet 37.5 mg PO Q12H 01/16/25 01/16/25 History olanzapine 5 mg tablet 5 mg PO Q8H 01/16/25 01/16/25 History agitation/hypersexulaity ondansetron 4 mg disintegrating 4 mg PO Q8H PRN nausea and vomiting 01/16/25 01/16/25 History tablet quetiapine 25 mg tablet 25 mg PO HS 01/16/25 01/16/25 History Allergies Allergy/AdvReac Type Severity Reaction Status Date / Time No Known Allergies Allergy Verified 01/16/25 17:07 Vital Signs Vital Signs - 24 hr 01/16/25 17:02 01/16/25 17:03 01/16/25 17:05 Temperature 98.0 F Pulse Rate 93 89 Respiratory Rate 20 Blood Pressure 130/68 Pulse Oximetry 97 97 Oxygen Delivery Room Air 01/16/25 18:19 01/16/25 20:29 01/16/25 22:00 Temperature 98.3 F Pulse Rate 96 112 H 118 H Respiratory Rate 21 H 13 18 Blood Pressure 119/68 108/75 123/95 H Pulse Oximetry 96 97 90 Oxygen Delivery 01/17/25 00:00 01/17/25 00:58 01/17/25 04:00 Temperature Pulse Rate 135 H 133 H 102 H Respiratory Rate Blood Pressure Pulse Oximetry Oxygen Delivery 01/17/25 06:00 01/17/25 09:20 01/17/25 09:20 Temperature 97.7 F Pulse Rate 115 H 93 Respiratory Rate 18 Blood Pressure 90/49 L Pulse Oximetry 90 95 Oxygen Delivery Room Air 01/17/25 09:26 01/17/25 13:51 Temperature 97.5 F L 98.8 F Pulse Rate 90 104 H Respiratory Rate 18 18 Blood Pressure 98/66 L 103/63 Pulse Oximetry 97 95 Oxygen Delivery Exam 2 Narrative: Limited verbal communication. No evidence of external injuries to the head or neck. No carotid bruit. Cranial nerves pupils were equal reacting. She seems to moving her eyes in all directions. No facial asymmetry. Tongue was midline. Motor system she is able to squeeze my fingers on both sides. This does seem to spontaneously moving her both upper and lower limbs. No cogwheeling or involuntary movements are seen. Deep tendon reflexes were 0 to 1/4. Results Labs 01/17/25 05:10 01/17/25 05:09 Labs: Short CBC 01/16/25 01/17/25 Range/Units 17:11 05:10 WBC 13.4 H 12.4 H (4.5-10.0) K/mm3 Hgb 15.3 H D 12.7 (12.0-15.0) g/dL Hct 47.9 H 41.4 (37.0-47.0) % Plt Count 179 153 (150-375) k/mm3 BMP 01/16/25 01/17/25 17:11 05:09 Sodium 141 141 Potassium 4.7 4.2 Chloride 103 107 Carbon Dioxide 26 28 BUN 28 H D 29 H Creatinine 0.68 L 0.61 L Glucose 145 H 106 Calcium 9.1 8.4 Cardiac Enzymes 01/17/25 Range/Units 05:09 Total Creatine Kinase 59 (30-135) U/L Liver Function 01/16/25 01/17/25 Range/Units 17:11 05:09 Total Bilirubin 0.8 0.8 (0.2-1.3) mg/dL AST 48 H 35 (14-36) U/L ALT 31 24 (6-35) U/L Alkaline Phosphatase 118 109 (38-126) U/L Albumin 4.3 3.7 (3.5-5.1) g/dL Urine 01/16/25 Range/Units 17:11 Urine Color Dark yellow (Yellow) Urine Appearance Cloudy H (Clear) Urine pH 5.5 (5.0-9.0) Ur Specific [place] 1.033 (1.001-1.035) Urine Protein 1+ H (Negative) mg/dL Urine Glucose (UA) Negative (Negative) mg/dL
[2025-01-17] MEDS: QUEtiapine FUMARATE 25 MG TABLET PO (20:51)
[2025-01-17] MEDS: MELATONIN 5 MG TABLET 10 MG PO (20:51)
[2025-01-17] MEDS: FAMOTIDINE 20 MG TABLET 40 MG PO (20:52)
[2025-01-17] MEDS: SERTRALINE HCL 50 MG TABLET PO (20:52)
[2025-01-17] MEDS: levETIRAcetam 500 MG TABLET PO (20:52)
[2025-01-18] VITALS (12 sets, daily range): BP systolic 115–150; BP diastolic 65–89; PULSE 57–87; RESP 16–18; TEMP 36.2–36.6; O2SAT 97–100
--- NOTE | 2025-01-18 07:26 | PM.IMPN ---
Progress Note: A&P Assessment and Plan (1) Observed seizure-like activity: Code(s): R56.9 - Unspecified convulsions Status: Acute Assessment and Plan: Family observed tonic clonic seizure-like activity lasting less than 30 seconds. No prior history of seizures. 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 Age related changes also noted including moderate diffuse volume loss and mild periventricular predominant calcific white matter T2 hyperintensity consistent with chronic small vessel ischemic disease. - EEG ordered, no read at this time - Started Keppra 500mg BID - Continue telemetry - Neurology consulted, appreciate recommendations This could be vascular vs degenerative dementia Started on keppra 500 mg BID Remains at baseline AOx1 however more somnolent on assessment compared to yesterday. Following commands. (2) Bacteriuria: Code(s): R82.71 - Bacteriuria Status: Acute Assessment and Plan: - UA: cloudy appearance with 1+ protein, trace ketones, 1+ bili, trace leukocytes, >100 RBC, 11-20 WBC, 2+ bacteria. Few epitheleal cells present. - UC obtained on 01/16: pending - Renal US showed a 4 cm right renal cyst, otherwise unremarkable - previous micro reviewed 10/31/23: Ecoli ESBL resistance - started on Rocephin on 01/17 (3) Atrial fibrillation: Code(s): I48.91 - Unspecified atrial fibrillation Status: Acute Assessment and Plan: EKG on admission showed atrial fibrillation with HR 97 Continue metoprolol 37.5 mg BID Per prior cardiology note on 11/08/23 patient is not on anticoagulation because of her mental status and risk for falling making her a poor candidate Remains on tele for seizure Monitor Remains rate controlled. (4) Hypertension: Code(s): I10 - Essential (primary) hypertension Status: Acute Assessment and Plan: Chronic, continue home medications - metoprolol 37.5 mg BID - blood pressures stable, continue to monitor (5) Dementia: Code(s): F03.90 - Unspecified dementia, unspecified severity, without behavioral disturbance, psychotic disturbance, mood disturbance, and anxiety Status: Acute Assessment and Plan: Chronic, continue memantine and donepezil AOx1 baseline Time Spent With Patient Time with patient: 25 - 35 minutes Subjective Date/time seen: 01/18/25 07:26 Interval history: 89-year-old female with dementia, atrial fibrillation not on anticoagulation, hypertension, gastroesophageal reflux disease, and anxiety who presented to the hospital via EMS from [facility] for evaluation after a suspected seizure. Patient is pleasant lying in bed. She remains AOX1 during assessment. She is more somnolent today compared to yesterday, however she is at her baseline mental and following commands. Unable to obtain ROS given mental status. Review of Systems Review of Systems: ROS unobtainable: Yes unobtainable due to mental status Exam Narrative: AF HR 80 RR 16 SpO2 97 BP 115/82 General: female in no acute respiratory distress who is nontoxic appearing, lying semi recumbent in bed. Chest: Lungs are clear to auscultation bilaterally. No wheezes or crackles. CV: Heart was irregular rate and rhythm. Abd: Abdomen was soft. Nontender. Nondistended. Positive bowel sounds. Ext: No clubbing, cyanosis, or edema. DP pulses bilaterally. Neuro: Patient is alert and oriented x1 (baseline). Speech is clear. Objective Data Vital Signs Vital Signs: Vital Signs - 24 hr 01/17/25 08:00 01/17/25 09:20 01/17/25 09:20 Temperature Pulse Rate 86 93 Respiratory Rate Blood Pressure Pulse Oximetry 95 Oxygen Delivery Room Air 01/17/25 09:26 01/17/25 12:00 01/17/25 13:51 Temperature 97.5 F L 98.8 F Pulse Rate 90 76 104 H Respiratory Rate 18 18 Blood Pressure 98/66 L 103/63 Pulse Oximetry 97 95 Oxygen Delivery 01/17/25 16:00 01/17/25 20:00 01/17/25 20:00 Temperature Pulse Rate 77 92 Respiratory Rate Blood Pressure Pulse Oximetry Oxygen Delivery Room Air 01/17/25 20:22 01/17/25 20:52 01/17/25 21:12 Temperature 99.1 F Pulse Rate 89 94 Respiratory Rate 18 Blood Pressure 135/59 L Pulse Oximetry 95 95 Oxygen Delivery Room Air 01/18/25 00:00 01/18/25 04:00 01/18/25 05:28 Temperature 97.2 F L Pulse Rate 57 L 62 71 Respiratory Rate 16 Blood Pressure 132/65 Pulse Oximetry 97 Oxygen Delivery Intake/Output Intake/Output: Intake & Output 01/15/25 01/16/25 01/17/25 01/18/25 23:59 23:59 23:59 23:59 Intake Total 1530 50 Output Total 75 Balance -75 1530 50 Meds/Results Medications: Active Medications Generic Name Dose Route Start Last Admin Trade Name Freq PRN Reason Stop Dose Admin Acetaminophen 650 mg 01/16/25 19:21 Acetaminophen 325 Mg Tablet PO Q4H PRN Mild Pain (1-3) or Fever Aspirin 81 mg 01/17/25 09:00 01/17/25 09:19 Aspirin 81 Mg Enteric Tablet PO 81 mg DAILY BINDU Administration Enoxaparin Sodium 40 mg 01/17/25 09:00 01/17/25 09:20 Enoxaparin 40 Mg/0.4 Ml Syringe SUB-Q 40 mg DAILY BINDU Administration Famotidine 40 mg 01/17/25 21:00 01/17/25 20:52 Famotidine 20 Mg Tablet PO 40 mg HS BINDU Administration Ceftriaxone Sodium 1 gm in 50 mls @ 100 mls/hr 01/17/25 21:00 01/17/25 21:36 Rocephin 1 Gm/Ns 50 Ml IVPB Infused Q24H BINDU Infusion Levetiracetam 500 mg 01/17/25 21:00 01/17/25 20:52 Levetiracetam 500 Mg Tablet PO 500 mg Q12HR BINDU Administration Loratadine 10 mg 01/17/25 09:00 01/17/25 09:19 Loratadine 10 Mg Tablet PO 10 mg DAILY BINDU Administration Melatonin 10 mg 01/17/25 21:00 01/17/25 20:51 Melatonin 5 Mg Tablet PO 10 mg HS BINDU Administration Memantine 10 mg 01/17/25 09:00 01/17/25 20:52 Memantine 10 Mg Tablet PO 10 mg Q12HR BINDU Administration Metoprolol Tartrate 37.5 mg 01/17/25 09:00 01/17/25 20:52 Metoprolol Tartrate 12.5 Mg Tablet PO 37.5 mg Q12HR BINDU Administration Pravastatin Sodium 20 mg 01/17/25 09:00 01/17/25 09:19 Pravastatin Sodium 20 Mg Tablet PO 20 mg DAILY BINDU Administration Quetiapine Fumarate 25 mg 01/17/25 21:00 01/17/25 20:51 Quetiapine Fumarate 25 Mg Tablet PO 25 mg HS BINDU Administration Sertraline HCl 50 mg 01/17/25 21:00 01/17/25 20:52 Sertraline Hcl 50 Mg Tablet PO 50 mg HS BINDU Administration Radiology Results: ITS Impressions Head CT 01/16/25 18:39 IMPRESSION: No acute intracranial findings. Chest X-Ray 01/16/25 19:01 IMPRESSION: No acute cardiopulmonary pathology. Renal Ultrasound 01/17/25 09:24 IMPRESSION: 1. 4.0 cm right renal cyst. Otherwise normal kidneys without hydronephrosis. Brain MRI 01/17/25 17:23 IMPRESSION: 1. 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 No acute intracranial process. 2. Age-related changes including moderate diffuse volume loss and mild periventricular predominant calcific white matter T2 hyperintensity consistent with chronic small vessel ischemic disease. Quality VTE Prophylaxis VTE prophylaxis: pharmacologic ordered
[2025-01-18] MEDS: ASPIRIN 81 MG ENTERIC TABLET PO (09:36)
[2025-01-18] MEDS: METOPROLOL TARTRATE 12.5 MG TABLET 37.5 MG PO ×2 (09:36→21:41)
[2025-01-18] MEDS: LORATADINE 10 MG TABLET PO (09:36)
[2025-01-18] MEDS: MEMANTINE 10 MG TABLET PO ×2 (09:36→21:41)
[2025-01-18] MEDS: ENOXAPARIN 40 MG/0.4 ML SYRINGE SUB-Q (09:36)
[2025-01-18] MEDS: levETIRAcetam 500 MG TABLET PO ×2 (09:36→21:41)
[2025-01-18] MEDS: PRAVASTATIN SODIUM 20 MG TABLET PO (09:36)
[2025-01-18] MEDS: FAMOTIDINE 20 MG TABLET 40 MG PO (21:41)
[2025-01-18] MEDS: MELATONIN 5 MG TABLET 10 MG PO (21:41)
[2025-01-18] MEDS: QUEtiapine FUMARATE 25 MG TABLET PO (21:41)
[2025-01-18] MEDS: SERTRALINE HCL 50 MG TABLET PO (21:41)
[2025-01-19] VITALS (7 sets, daily range): BP systolic 138–153; BP diastolic 81–83; PULSE 75–93; RESP 20; TEMP 36.6–36.8; O2SAT 92–99
[2025-01-19 07:34] LABS: Hematocrit 42.4 % (37.0-47.0); Hemoglobin 13.6 g/dL (12.0-15.0); Mean Corpuscular HGB Conc 32.1 g/dl (32-36); Mean Corpuscular Hemoglobin 28.2 pg (26-34); Mean Platelet Volume 10.6 fl (7.4-10.4); Platelet Count Result 154 k/mm3 (150-375); Red Blood Count 4.82 M/mm3 (4.2-5.4); Red Cell Distribution Width 12.8 % (11.5-14.5)
[2025-01-19 07:55] LABS: Alanine Aminotransferase 25 U/L (6-35); Albumin Level 3.9 g/dL (3.5-5.1); Alkaline Phosphatase 111 U/L (38-126); Anion Gap 7 mmol/L (4-12); Aspartate Amino Transferase 41 U/L (14-36); Bilirubin,Total 0.8 mg/dL (0.2-1.3); Blood Urea Nitrogen 13 mg/dL (7-17); Calcium 8.4 mg/dL (8.4-10.2); Carbon Dioxide 29 mmol/L (22-30); Chloride 102 mmol/L (98-107); Estimated CRCL calculation 48 ml/min; Estimated Glomerular Filt Rate > 60; Glucose 76 mg/dL (65-110); Potassium 3.3 mmol/L (3.4-5.0); Sodium 138 mmol/L (137-145)
[2025-01-19] MEDS: levETIRAcetam 500 MG TABLET PO (08:35)
[2025-01-19] MEDS: LORATADINE 10 MG TABLET PO (08:35)
[2025-01-19] MEDS: METOPROLOL TARTRATE 12.5 MG TABLET 37.5 MG PO (08:35)
[2025-01-19] MEDS: ASPIRIN 81 MG ENTERIC TABLET PO (08:35)
[2025-01-19] MEDS: MEMANTINE 10 MG TABLET PO (08:35)
[2025-01-19] MEDS: ENOXAPARIN 40 MG/0.4 ML SYRINGE SUB-Q (08:35)
[2025-01-19] MEDS: PRAVASTATIN SODIUM 20 MG TABLET PO (08:35)
[2025-01-19] MEDS: POTASSIUM CHLORIDE 20 MEQ ER TABLET 40 MEQ PO (08:37)
--- NOTE | 2025-01-19 14:43 | P.DS_ITS ---
DS: Admitting Diagnosis Discharge Date 01/19/2025 Admitting Diagnosis observed seizure like activity bacteriuria afib hypertension dementia DS: Discharge Diagnosis Discharge Diagnosis (1) Observed seizure-like activity: Code(s): R56.9 - Unspecified convulsions Status: Acute (2) Bacteriuria: Code(s): R82.71 - Bacteriuria Status: Acute (3) Atrial fibrillation: Code(s): I48.91 - Unspecified atrial fibrillation Status: Acute (4) Hypertension: Code(s): I10 - Essential (primary) hypertension Status: Acute (5) Dementia: Code(s): F03.90 - Unspecified dementia, unspecified severity, without behavioral disturbance, psychotic disturbance, mood disturbance, and anxiety Status: Acute DS: Summary Hospital Course Reason for hospitalization: observed seizure like activity bacteriuria afib hypertension dementia Hospital Course: 89-year-old female with dementia, atrial fibrillation not on anticoagulation, hypertension, gastroesophageal reflux disease, and anxiety who presented to the hospital via EMS from [facility] for evaluation after a suspected seizure. Per chart review family observed tonic clonic seizure-like activity lasting less than 30 seconds. Patient is on several medications including donepezil, quetiapine, and sertraline that can cause seizures however patient has been on these medications since 01/2024. EKG showed chronic atrial fibrillation. Head CT and chest XR unremarkable. 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 Age related changes also noted including moderate diffuse volume loss and mild periventricular predominant calcific white matter T2 hyperintensity consistent with chronic small vessel ischemic disease. EEG obtained with official read pending. Patient evaluated by neurology and started on keppra. On admission patients UA was concerning for infection. Started on IV antibiotics. Culture grew aerococcus urinae, transitioned to oral antibiotics to complete the course. Renal US showed a 4 cm right renal cyst, otherwise unremarkable. At time of discharge patient was alert, following commands. She remained at her baseline AOx1. Patient discharged back to memory care unit in a stable condition. She is to follow up with her PCP in 1 week and neuro as scheduled. Status at Discharge Functional status at discharge: wheelchair bound Time Spent with Patient Time attestation: Total time spent providing and/or coordinating discharge services: Time spent: Greater than 30 minutes Exam Narrative: AF HR 77 RR 20 SPO2 92 BP 153/81 General: female in no acute respiratory distress who is nontoxic appearing, lying semi recumbent in bed. Chest: Lungs are clear to auscultation bilaterally. No wheezes or crackles. CV: Heart was irregular rate and rhythm. Abd: Abdomen was soft. Nontender. Nondistended. Positive bowel sounds. Ext: No clubbing, cyanosis, or edema. DP pulses bilaterally. Neuro: Patient is alert and oriented x1 (baseline). Speech is clear. DS: Data Data Completed and Pending Completed studies during hospitalization: Brain MRI Renal US Chest XR Head CT Pending studies at discharge: EEG Labs on day of discharge: Labs from last 24 hours 01/19/25 07:11 WBC 7.0 RBC 4.82 Hgb 13.6 Hct 42.4 MCV 88.0 MCH 28.2 MCHC 32.1 RDW 12.8 Plt Count 154 MPV 10.6 H Sodium 138 Potassium 3.3 L Chloride 102 Carbon Dioxide 29 Anion Gap 7 BUN 13 D Creatinine 0.49 L Estim Creat Clear Calc 48 Estimated GFR > 60 Glucose 76 Calcium 8.4 Total Bilirubin 0.8 AST 41 H ALT 25 Alkaline Phosphatase 111 Total Protein 7.0 Albumin 3.9 Preliminary micro results at discharge 01/16/25 19:48 Blood Culture - Preliminary Blood 01/16/25 19:48 Blood Culture - Preliminary Blood Discharge Plan Discharge Attending physician on discharge: Morteza Westbrook Consulting providers: Priyanka Vazquez Discharging Clinician: Mindi Zhou Anticipated Discharge Date/Time: 01/19/25 13:40 Patient Disposition: [facility] Activity: as tolerated Diet: as tolerated and heart healthy Discharge Instructions: Discharge disposition: Patient admitted to the hospital for seizure like activity Evaluated by neurology Started on keppra, attached is information on this medication Monitor neuro status Follow up with neurology Diagnosed with a urinary tract infection Take all medications as prescribed even if feeling better Bactrim twice a day, course to be completed on 11/22 Attached is information on this medication Eat well balanced meals and stay hydrated Keep active to remain strong Avoid use of diapers or pads Good rell Care every 2 hours Trend urine output Monitor blood pressures Take caution while standing, rising, or moving Change positions slowly taking a break between each position change If you standing feel dizzy sit back down and take a break Encouraged to continue with yearly vaccinations Return to the emergency department if he developed sudden shortness of breath, chest pain, nausea, vomiting, upset stomach or intractable diarrhea Return to the emergency department if you develop fever greater than 101.5 Follow-up with the primary care physician within 1-2 weeks Thank you for [facility] for your healthcare needs Patient Instructions: Antibiotic Form, Sulfamethoxazole/Trimethoprim (By mouth), Levetiracetam (By mouth), New-Onset Seizure in Adults (DC), Urinary Tract Infection in Older Adults (DC) Patient Language: Albanian Stand Alone Forms: General Discharge Information Follow-up/Referrals: Priyanka Vazquez MD [Physician] - Call for Appointment Josh Colvin MD [Primary Care Provider] - 1 Week Discharge Medications: New levetiracetam [Keppra] 500 mg Tablet 500 mg PO Q12HR Qty: 60 0RF sulfamethoxazole-trimethoprim 800-160 mg Tablet 1 tab PO Q12HR Qty: 6 0RF Continued memantine [Namenda] 10 mg tablet 10 mg PO Q12H nystatin 100,000 unit/gram powder 1 applic TOPICAL BID Qty: 60 3RF sertraline 50 mg tablet 50 mg PO HS acetaminophen 325 mg capsule 650 mg PO Q6H PRN (Reason: Fever Or Pain) aspirin 81 mg tablet,delayed release (DR/EC) 81 mg PO DAILY Qty: 30 0RF loratadine [Claritin] 10 mg tablet 10 mg PO DAILY donepezil 10 mg tablet 10 mg PO HS famotidine 40 mg tablet 40 mg PO HS melatonin 10 mg capsule 10 mg PO HS metoprolol tartrate 25 mg tablet 37.5 mg PO Q12H olanzapine 5 mg tablet 5 mg PO Q8H ondansetron 4 mg tablet,disintegrating 4 mg PO Q8H PRN (Reason: nausea and vomiting) quetiapine 25 mg tablet 25 mg PO HS pravastatin 20 mg tablet 20 mg PO DAILY Qty: 90 2RF Date of admission: 01/17/25 07:14 Primary Care Provider: Josh Colvin Admitting Provider: Trenton Anaya Attending physician on admission: Mindi Zhou Condition: Stable Hospitalist MIPS Heart Failure (Exclusion) Patient has history of Heart Transplant or Left Ventricular Assistive Device?: No IF YES, STOP HERE Heart Failure (Qualifier) Patient has current or prior documentation of LVEF less than or equal to 40%, or mod/servere depressed LVSF?: No IF NO, STOP HERE
--- NOTE | 2025-01-19 14:52 | WPDNEUROLOGY ---
Neurology EEG Report General Information Date of Study: 01/18/25 TEST eeg DIAGNOSIS New onset seizure CONDITION OF RECORDING drowsy and asleep. EEG NUMBER [id number] CLINICAL HISTORY Admitted to the hospital with history of new onset seizure but patient slept through set up an tracing no other history was available. EEG DESCRIPTION Bihemispheric 3 to 4 hertz per 2nd low-voltage delta activity seen admixed with low-voltage alpha and theta activity in addition to bilateral sleep spindles. Photic stimulation not done. Hyperventilation not done. Non paroxysmal. Nonfocal. Nonlateralizing. IMPRESSION No significant abnormalities noted particular was no evidence of any paroxysmal activity clinical correlation recommended.
[2025-01-19] MEDS: SULFAMETHOXAZOLE/TRIMETHOPRIM 800/160 MG DS TABLET 1 TAB PO (16:01)
[2025-01-19 16:12] LABS: SARS-CoV-2 RNA PCR Negative (Negative)
== END 2025-01-19 18:03 | DRG 101 ==
LOC: ANHED 19:36 → ANH2MED 20:27
PROVIDERS: Physician Assistant; Admitting Provider Hospitalist; Emergency Provider Emergency Medicine; PCP Family Medicine; Visit Provider Student in an Organized Health Care Education/Training Program
DX: R56.9 Unspecified convulsions (principal); N39.0 Urinary tract infection, site not specified; I48.20 Chronic atrial fibrillation, unspecified; I10 Essential (primary) hypertension; B96.89 Other specified bacterial agents as the cause of diseases classified elsewhere; E78.5 Hyperlipidemia, unspecified; E55.9 Vitamin D deficiency, unspecified; K21.9 Gastro-esophageal reflux disease without esophagitis; M85.80 Other specified disorders of bone density and structure, unspecified site; F03.90 Unspecified dementia, unspecified severity, without behavioral disturbance, psychotic disturbance, mood disturbance, and anxiety; F41.1 Generalized anxiety disorder; F32.A Depression, unspecified; Z11.52 Encounter for screening for COVID-19; Z79.82 Long term (current) use of aspirin; Z86.73 Personal history of transient ischemic attack (TIA), and cerebral infarction without residual deficits
CPT/HCPCS: 36415; 70450; 70553; 71045; 76775; 80053; 81001; 82550; 83735; 84443; 85025; 85027; 85610; 85730; 87040; 87086; 87635; 93005; 95816; 96361; 96365; 99285; A9270; A9579; G0378; J0696; J1650; J7030

== ENCOUNTER 2025-03-15 13:26 | Emergency (ER) | payer OTHER, SELFPAY ==
[2025-03-15] VITALS (14 sets, daily range): BP systolic 113–148; BP diastolic 71–127; PULSE 77–198; RESP 15–22; TEMP 36–36.7; O2SAT 95–98
--- NOTE | ~2025-03-15 | XR_ITS ---
XR chest 1V portable Ordering provider: Severo Ramirez MD History: 89 years Female with . S/P hiemlich maneuver for choking . Comparison: January 16, 2025 FINDINGS: MEDIASTINUM: The cardiac silhouette is moderately enlarged. LUNGS: No infiltrates, effusions or pneumothorax. Underlying emphysematous changes. OTHER: No free air under the diaphragm. Degenerative spine. IMPRESSION: No acute cardiopulmonary pathology. Reviewed, dictated and finalized at location A.
[2025-03-15 14:08] LABS: Glucose Point of Care 95 mg/dl (65-105)
--- NOTE | 2025-03-15 15:51 | ED.GENADULT ---
HPI - General Adult General Chief complaint: Recheck/Abnormal Lab/Rx Stated complaint: choking case Time Seen by Provider: 03/15/25 14:57 History of Present Illness HPI narrative: This is a 89-year-old female with history severe dementia presenting after a choking event. Per EMS she was choking on a Olive sprouts the halfway meds receive the Heimlich maneuver with expulsion of the brussel sprout. The patient herself does not remember the event. She is A&O x1. She has no physical complaints at this time such as abdominal pain, chest pain or shortness of breath. Related Data Home Medications ?Medication ?Instructions ?Recorded ?Confirmed ?Last Taken ?Type memantine 10 mg tablet (Namenda) 10 mg PO Q12H 08/20/19 01/16/25 Unknown History acetaminophen 325 mg capsule 650 mg PO Q6H PRN Fever Or Pain 11/02/23 01/16/25 01/15/25 History sertraline 50 mg tablet 50 mg PO HS 11/02/23 01/16/25 01/15/25 History donepezil 10 mg tablet 10 mg PO HS 01/16/25 01/16/25 Unknown History famotidine 40 mg tablet 40 mg PO HS 01/16/25 01/16/25 01/15/25 History loratadine 10 mg tablet (Claritin) 10 mg PO DAILY 01/16/25 01/16/25 01/16/25 History melatonin 10 mg capsule 10 mg PO HS 01/16/25 01/16/25 01/15/25 History metoprolol tartrate 25 mg tablet 37.5 mg PO Q12H 01/16/25 01/16/25 01/16/25 History quetiapine 25 mg tablet 25 mg PO HS 01/16/25 01/16/25 01/15/25 History Allergies Allergy/AdvReac Type Severity Reaction Status Date / Time No Known Allergies Allergy Verified 01/16/25 17:07 [facility] Past Medical History Medical History (Updated 03/15/25 @ 16:21 by Severo Ramirez MD) 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 Code status: Do not resuscitate. Smoking status: Unknown if ever smoked Second hand tobacco smoke exposure: No Alcohol intake: unknown Substance use: unknown Substance use type: does not use Lack of Transportation: No Lack of Food: Never True Current Housing: I Have Housing Concerned About Future Housing: No Difficulty Paying Gas/Electric Bills: No Difficulty Paying for Meds: No Currently Unemployed: No Education: Decline to Answer Difficulty w/ Childcare or Family Care: No Living arrangements: with family Occupation/Education: retired Spiritual care concerns: No Exam Narrative: APPEARANCE: No apparent distress. Head: atraumatic. EYES: EOMI, NOSE: Atraumatic NECK: Trachea midline RESPIRATORY: No increased rate of breathing clear to auscultation CARDIOVASCULAR: RRR, no peripheral edema ABDOMINAL: Non-distended no tenderness to the abdomen no guarding or rebound MUSCULOSKELETAl: No pain over the thorax or with AP or lateral loading of the chest NEURO: Alert. Moving 4/4 extremities SKIN:: Warm, dry. Normal color PSYCHIATRIC: Normal affect Course Vital Signs Vital signs: Vital Signs Pulse Oximetry 95 03/15/25 13:31 Temperature 98.0 F 03/15/25 13:34 Pulse Rate 198 H 03/15/25 13:34 Respiratory Rate 20 03/15/25 15:10 Blood Pressure 116/89 03/15/25 13:34 Pulse Oximetry 95 03/15/25 15:10 Oxygen Delivery Room Air 03/15/25 13:34 Medical Decision Making MDM Narrative Medical decision making narrative: -Course: 89-year-old female with severe dementia presenting after choking event that was treated successfully with Heimlich maneuver. On exam here the patient is resting comfortably with stable vital signs. She has no complaints. Physical exam did not really feel any evidence of rib fractures/pain, patient does not have any abdominal pain. Her vital signs are stable with no respiratory distress. Patient will be discharged back to halfway. She can return if she develops any new or worsening symptoms. -DDX includes but is not limited to: Choking event, rib fractures, pneumothorax Vital Signs Vital Signs: Vital Signs Pulse Oximetry 95 03/15/25 13:31 Temperature 98.0 F 03/15/25 13:34 Pulse Rate 198 H 03/15/25 13:34 Respiratory Rate 20 03/15/25 15:10 Blood Pressure 116/89 03/15/25 13:34 Pulse Oximetry 95 03/15/25 15:10 Oxygen Delivery Room Air 03/15/25 13:34 Lab Data Labs: Lab Results 03/15/25 Range/Units 13:34 POC Capillary Glucose 95 (65-105) mg/dl Discharge Plan Discharge Clinical Impression: Choking Patient Disposition: Home Condition: Stable Instructions: Antibiotic Form, How to Perform the Heimlich Maneuver (ED) Additional Instructions: Valentina was seen in our emergency department after a choking event. You likely save her life with the Heimlich maneuver. We do not see any concerning findings our history physical or chest x-ray. If she develops any new or worsening symptoms she should return to the ED for re-evaluation. Patient Language: Mexican Prescriptions: No Action memantine [Namenda] 10 mg tablet 10 mg PO Q12H sertraline 50 mg tablet 50 mg PO HS acetaminophen 325 mg capsule 650 mg PO Q6H PRN (Reason: Fever Or Pain) aspirin 81 mg tablet,delayed release (DR/EC) 81 mg PO DAILY Qty: 30 0RF loratadine [Claritin] 10 mg tablet 10 mg PO DAILY donepezil 10 mg tablet 10 mg PO HS famotidine 40 mg tablet 40 mg PO HS melatonin 10 mg capsule 10 mg PO HS metoprolol tartrate 25 mg tablet 37.5 mg PO Q12H quetiapine 25 mg tablet 25 mg PO HS levetiracetam [Keppra] 500 mg Tablet 500 mg PO Q12HR Qty: 60 0RF pravastatin 20 mg tablet 20 mg PO DAILY Qty: 90 2RF Follow-up/Referrals: Josh Colvin MD [Primary Care Provider] -
--- NOTE | 2025-03-15 16:25 | PC.NURSE ---
ERP Dr Ramirez read xray and stated pt is good to be d/c home. [facility] at bedside.
== END 2025-03-15 16:32 ==
PROVIDERS: Emergency Provider Emergency Medicine; PCP Family Medicine
DX: T17.928A Food in respiratory tract, part unspecified causing other injury, initial encounter (principal); G30.9 Alzheimer's disease, unspecified; F02.80 Dementia in other diseases classified elsewhere, unspecified severity, without behavioral disturbance, psychotic disturbance, mood disturbance, and anxiety; I48.91 Unspecified atrial fibrillation; I10 Essential (primary) hypertension; E78.5 Hyperlipidemia, unspecified; E55.9 Vitamin D deficiency, unspecified; M85.80 Other specified disorders of bone density and structure, unspecified site; F41.9 Anxiety disorder, unspecified; F32.A Depression, unspecified; Z66 Do not resuscitate; Z90.49 Acquired absence of other specified parts of digestive tract; W44.F3XA Food entering into or through a natural orifice, initial encounter; Z79.82 Long term (current) use of aspirin; Z79.899 Other long term (current) drug therapy
CPT/HCPCS: 71045; 82948; 99283